=== PATIENT | female | born 1970 | race Caucasian/White ===

== ENCOUNTER 2020-01-30 10:02 | Outpatient (REF) | payer OTHER, SELFPAY ==
[2020-01-30 11:01] LABS: Baso%MD 0.9 %; Eos%MD 4.2 %; Hematocrit 42.5 % (37-47); Hemoglobin 14.2 g/dl (12.0-16.0); IG%MD 0.1 %; Mean Corpuscular HGB Conc 33.4 g/dl (31.0-35.0); Mean Corpuscular Hemoglobin 29.5 pg (27.0-33.0); Mean Corpuscular Volume 88.4 fL (80-98); Mean Platelet Volume 9.1 fL (9.4-12.3); Mono%MD 5.3 %; Neut%MD 58.5 %; Platelet Count 333 X10*3/uL (160-400); Red Blood Count 4.81 X10*6/uL (4.20-5.50); Red Cell Distribution Width 12.4 % (11.0-16.0)
[2020-01-30 11:58] LABS: Anion Gap 14 (12-20); Blood Urea Nitrogen 8 mg/dL (9-16); Calcium 9.1 mg/dL (8.4-10.2); Carbon Dioxide 27 mmol/L (22-29); Chloride 104 mmol/L (96-108); Estimated Glomerular Filt Rate > 60; Glucose Random 103 mg/dL (60-115); Iron 132 mcg/dL (30-160); Percent Iron Saturation 43 % (15-50); Potassium 4.5 mmol/l (3.3-5.1); Sodium 140 mmol/L (135-145); Total Iron Binding Capacity 307 mcg/dL (228-428); Unsaturated Iron Binding 175 ug/dL
[2020-01-30 12:23] LABS: Ferritin 30 ng/mL (10-250); TSH reflex Free T4 0.65 mIU/mL (0.32-4.0)
[2020-01-30 12:24] LABS: Band Neutrophils Percent 1 % (3-5); Eosinophils Absolute Manual 0.1 X10*3/UL (0.0-0.8); Eosinophils Percent Manual 2 % (0-4); Lymphocytes Absolute Manual 2.3 X10*3/uL (0.6-4.8); Lymphocytes Percent Manual 33 % (20-40); Monocytes Absolute Manual 0.4 X10*3/uL (0.0-1.2); Monocytes Percent Manual 6 % (2-11); Neutrophils Absolute Manual 4.1 X10*3/uL (2.2-7.9); Neutrophils Percent Manual 58 % (45-73)
[2020-01-30 12:25] LABS: Platelet Estimate NORMAL (NORMAL); Platelet Morphology Comment NORMAL; RBC Morphology NORMAL
[2020-01-30 12:26] LABS: Vitamin B12 > 2000 pg/mL (200-900)
== END 2020-01-30 10:03 | disposition home or self-care (01) ==
LOC: HO.LAB 10:02
PROVIDERS: PCP Nurse Practitioner Family; Visit Provider Nurse Practitioner Family
DX: R53.83 Other fatigue (principal)
CPT/HCPCS: 36415; 80048; 82607; 82728; 83540; 84443; 85007; 85027

== ENCOUNTER 2020-04-14 09:44 | Outpatient (REF) | payer OTHER, SELFPAY ==
[2020-04-20 02:32] LABS: HPV mRNA E6/E7 rflx Not Detected (Not Detected)
== END 2020-04-14 09:45 | disposition home or self-care (01) ==
LOC: HO.LAB 09:44
PROVIDERS: Visit Provider Obstetrics & Gynecology
DX: Z01.411 Encounter for gynecological examination (general) (routine) with abnormal findings (principal); R10.2 Pelvic and perineal pain; R35.0 Frequency of micturition
CPT/HCPCS: 36415; 81002; 87624; 88142

== ENCOUNTER 2020-04-26 10:54 | Day surgery (SDC) | payer OTHER, SELFPAY ==
[2020-04-20 13:01] VITALS: BMI 34.0
--- NOTE | 2020-04-23 10:29 | HO.ANESPROP2 ---
HPI - Anesthesia Eval Consult details Narrative: 49yo F for Colonoscopy PMFSH Past Medical History Medical History Anxiety Depression High cholesterol History of back pain HTN (hypertension) Hx of iron deficiency anemia Hx of seasonal allergies Migraines Obesity Smoker Family History Family History Father Hx of diabetes insipidus Mother Hx of diabetes insipidus Surgical History Surgical History History of blepharoplasty History of bunionectomy of right great toe History of colposcopy History of foot surgery History of lymph node biopsy History of nasal surgery History of surgical removal of ganglion cyst History of tonsillectomy and adenoidectomy Hx of endoscopy Hx of gastric bypass Hx of tubal ligation Social History Social History Alcohol intake: never Smoking Status: Current every day smoker Tobacco Type: Cigarette Packs Per Day: 0.5 Cigarettes Per Day: 10.0 Years Smoked: 35 Current occupational status: employed Current occupation: [email or web address] Allergies Allergy/AdvReac Type Severity Reaction Status Date / Time mold Allergy Mild SNEEZING Unverified 04/20/20 12:21 prednisone [Prednisone] Allergy Mild NAUSEA & Unverified 04/20/20 12:21 VOMITING losartan Allergy Unknown unknown Verified 04/20/20 12:21 clindamycin [CLINDAMYCIN] AdvReac Severe C.DIFFICILE Unverified 04/20/20 12:21 procaine [From Novocain] AdvReac Severe NOVOCAIN Unverified 04/20/20 12:21 WITH EPI CUSES PALPITATION erythromycin base AdvReac Mild NAUSEA & Unverified 04/20/20 12:21 [Erythromycin Base] VOMITING ? disolving stitches Allergy Unknown skin Uncoded 04/20/20 12:21 burn/ulceration adhesives Allergy Unknown skin Uncoded 04/20/20 12:21 burning, blisters Home Medications Medication Instructions Recorded Confirmed Type simvastatin 20 mg tablet 20 mg PO DAILY 02/19/20 04/20/20 History amitriptyline 1 tab PO DAILY 04/20/20 04/20/20 History calcium mg PO 04/20/20 History citalopram 1 tab PO DAILY 04/20/20 04/20/20 History cranberry 500 mg PO BID 04/20/20 04/20/20 History cyanocobalamin (vitamin B-12) 1,000 mcg PO DAILY 04/20/20 04/20/20 History ibuprofen 800 mg PO Q8H PRN 04/20/20 04/20/20 History lansoprazole 15 mg PO DAILY 04/20/20 04/20/20 History multivitamin 1 tab PO DAILY 04/20/20 04/20/20 History thiamine HCl (vitamin B1) [Vitamin 100 mg PO DAILY 04/20/20 04/20/20 History B-1] Exam Exam Date and Time: April 23, 2020 1029 Height,Weight and Vital Signs: Height 5 ft 3 in Weight 87.09 kg Assessment and Plan Assessment Anesthesia Assessment: Chart Reviewed
--- NOTE | 2020-04-26 11:28 | MHC.SHP ---
Pre-Procedural Eval Section B Chief Complaint: Screening Relevant Social History: Tobacco Use Present Medications: see Short Stay Collaborative assessment Medical History: Significant History (Anxiety Depression High cholesterol History of back pain HTN (hypertension) Hx of iron deficiency anemia Hx of seasonal allergies Migraines Obesity Smoker) History of Previous Operations: Relevant previous surgery/procedure and date(s) (History of blepharoplasty History of bunionectomy of right great toe History of colposcopy History of foot surgery History of lymph node biopsy History of nasal surgery History of surgical removal of ganglion cyst History of tonsillectomy and adenoidectomy Hx of endoscopy Hx of gastric bypass Hx of ) Allergies: Allergies Allergy/AdvReac Type Severity Reaction Status Date / Time mold Allergy Mild SNEEZING Unverified 04/20/20 12:21 prednisone [Prednisone] Allergy Mild NAUSEA & Unverified 04/20/20 12:21 VOMITING losartan Allergy Unknown unknown Verified 04/20/20 12:21 clindamycin [CLINDAMYCIN] AdvReac Severe C.DIFFICILE Unverified 04/20/20 12:21 procaine [From Novocain] AdvReac Severe NOVOCAIN Unverified 04/20/20 12:21 WITH EPI CUSES PALPITATION erythromycin base AdvReac Mild NAUSEA & Unverified 04/20/20 12:21 [Erythromycin Base] VOMITING ? disolving stitches Allergy Unknown skin Uncoded 04/20/20 12:21 burn/ulceration adhesives Allergy Unknown skin Uncoded 04/20/20 12:21 burning, blisters Review of Systems Sugical H&P ROS: Negative: Constitution, Cardiovascular, Respiratory, Neurological, Psychiatric, Hem-Onc, Allergic/Immunologic, Gastrointestinal, Genitourinary, Musculoskeletal, Integumentary, Endocrine and Eyes/Ears/Nose/Throat Exam Surgical H&P Exam: Normal: HEENT, Normal: Heart, Normal: Lungs, Normal: Extremities, Normal: Abdomen, Normal: Skin and Normal: Neurological Plan Diagnosis/Plan: Unchanged I have reviewed the history and physical and performed a pertinent physical examination on my patient. No changes have occurred unless specified.
[2020-04-26 11:29] VITALS: BP 175/109; PULSE 90; RESP 16; TEMP 36; O2SAT 96
--- NOTE | 2020-04-26 11:29 | PM.OP ---
Brief Operative Note Date of Service: 04/26/20 Pre-op diagnosis: colon screen Post-op diagnosis: same Procedure: see op note Surgeon: Trinity Farr MD Anesthesia: MAC Estimated blood loss (mL): 0 Condition: stable Disposition: PACU
--- NOTE | 2020-04-26 11:29 | W.PM.OPN ---
Operative Note Operative Note Date of Service: 04/26/20 Narrative: Operative Information Procedure Description: Colonoscopy COLONOSCOPY Instrument: Olympus variable stiffness pediatric scope 190L Colonoscopy Monitoring: Vital signs and clinical assessment, continuous EKG monitoring, Pulse oximetry, Carbon Dioxide monitoring and blood pressure monitoring were done throughout the procedure. Colon withdrawal time was 12 minutes. Procedure: The patient was placed in the left lateral decubitis position and pre-procedure medications were administered. After a digital rectal examination of the ano-rectum, the video colonoscope was inserted into the rectum and advanced through the colon to the cecum/TI. The colonoscope was slowly withdrawn in a retrograde panoramic fashion and the colon mucosa was carefully examined including a retroflexed view of the rectum. Findings and interventions are described below. Procedure Difficulty:easy Findings: Terminal Ileum-normal Cecum:normal Ascending Colon: 5-7 mm sessile polyp removed with cold snare, otherwise nml Transverse Colon - 8-9 mm sessile polyp removed with cold snare, otherwise nml Descending Colon:normal Sigmoid Colon: mild diverticulosis Rectum: Retroflexion with small internal hemorrhoids, grade I Anorectum - normal Colon preparation: [place] Bowel Preparation Scale Right colon; 2 Transverse colon: 2 Left colon; 2 (0 = Unprepared colon segment with mucosa not seen due to solid stool that cannot be cleared. 1 = Portion of mucosa of the colon segment seen, but other areas of the colon segment not well seen due to staining, residual stool and/or opaque liquid. 2 = Minor amount of residual staining, small fragments of stool and/or opaque liquid, but mucosa of colon segment seen well. 3 = Entire mucosa of colon segment seen well with no residual staining, small fragments of stool or opaque liquid) Impression and Post Procedure Diagnosis: polyps internal hemorrhoids diverticular disease Plan: High fiber diet leaflet Avoid straining at stool, epsom salts and sitz bath, anusol supps or cream Repeat Colonoscopy in 5 years if adenoma, 10 yrs if hyperplastic or earlier if clinically indicated Above findings were reviewed with the patient and relevant handouts were provided if indicated.
--- NOTE | 2020-04-26 11:32 | HO.POSTANES ---
Post Anesthesia Evaluation Post Anesthesia Evaluation Anesthesia: Monitored Mental Status: Awake Pain Control: Satisfactory Nausea/Vomiting: None Hydration: Adequate Anesthesia-Related Issues: No Anes. Related Issues
--- NOTE | 2020-04-26 11:38 | P.CONAN_ITS ---
[facility] Past Medical History Medical History Anxiety Depression High cholesterol History of back pain HTN (hypertension) Hx of iron deficiency anemia Hx of seasonal allergies Migraines Obesity Smoker Family History Family History Father Hx of diabetes insipidus Mother Hx of diabetes insipidus Surgical History Surgical History History of blepharoplasty History of bunionectomy of right great toe History of colposcopy History of foot surgery History of lymph node biopsy History of nasal surgery History of surgical removal of ganglion cyst History of tonsillectomy and adenoidectomy Hx of endoscopy Hx of gastric bypass Hx of tubal ligation Social History Social History Are you a primary child care development specialist to a significant other at home: No Do you presently have visiting nurse or other home services: No Alcohol intake: never Smoking Status: Current every day smoker Tobacco Type: Cigarette Packs Per Day: 0.5 Cigarettes Per Day: 10.0 Years Smoked: 35 Smoked in Last 30 Days: Yes Patient Interested in Nicotine Replacement: No Patient Given Instructions on How to Stop Smoking: Yes Date Education Initiated: 04/20/20 Use of substances other than those prescribed or required for medical reasons: No Have you been hit, kicked, punched, or otherwise hurt by someone within the past year? If so, by whom?: No Advance Directives: No Advance Directives Information Provided: No Advance Directives on File: No Recently lost weight without trying: No Current occupational status: employed Current occupation: [employer] Allergies Allergy/AdvReac Type Severity Reaction Status Date / Time mold Allergy Mild SNEEZING Unverified 04/20/20 12:21 prednisone [Prednisone] Allergy Mild NAUSEA & Unverified 04/20/20 12:21 VOMITING losartan Allergy Unknown unknown Verified 04/20/20 12:21 clindamycin [CLINDAMYCIN] AdvReac Severe C.DIFFICILE Unverified 04/20/20 12:21 procaine [From Novocain] AdvReac Severe NOVOCAIN Unverified 04/20/20 12:21 WITH EPI CUSES PALPITATION erythromycin base AdvReac Mild NAUSEA & Unverified 04/20/20 12:21 [Erythromycin Base] VOMITING ? disolving stitches Allergy Unknown skin Uncoded 04/20/20 12:21 burn/ulceration adhesives Allergy Unknown skin Uncoded 04/20/20 12:21 burning, blisters Home Medications Medication Instructions Recorded Confirmed Type simvastatin 20 mg tablet 20 mg PO DAILY 02/19/20 04/20/20 History amitriptyline 1 tab PO DAILY 04/20/20 04/20/20 History calcium mg PO 04/20/20 History citalopram 1 tab PO DAILY 04/20/20 04/20/20 History cranberry 500 mg PO BID 04/20/20 04/20/20 History cyanocobalamin (vitamin B-12) 1,000 mcg PO DAILY 04/20/20 04/20/20 History ibuprofen 800 mg PO Q8H PRN 04/20/20 04/20/20 History lansoprazole 15 mg PO DAILY 04/20/20 04/20/20 History multivitamin 1 tab PO DAILY 04/20/20 04/20/20 History thiamine HCl (vitamin B1) [Vitamin 100 mg PO DAILY 04/20/20 04/20/20 History B-1] Exam Exam Date and Time: April 26, 2020 1138 Height,Weight and Vital Signs: Height 5 ft 3 in Weight 87.09 kg Last Vital Signs Temp 96.8 F 04/26/20 11:29 Pulse 90 04/26/20 11:29 Resp 16 04/26/20 11:29 BP 175/109 H 04/26/20 11:29 Pulse Ox 96 04/26/20 11:29 Airway Mallampati Class: II TM Dist: >3cm Neck ROM: Full Heart: RRR Lungs: CTA
[2020-04-26] MEDS: Lactated Ringers 1,000 ML 100 ML IVCONT (11:43)
[2020-04-26 12:35] VITALS: BP 173/100; PULSE 77; RESP 15; TEMP 36.2; O2SAT 99
[2020-04-26 12:50] VITALS: BP 176/101; PULSE 69; RESP 17; O2SAT 100
[2020-04-26] MEDS: SUMAtriptan succinate 50 MG TABLET PO (12:58)
[2020-04-26 13:45] VITALS: BP 185/97; PULSE 60; RESP 17; O2SAT 99
== END 2020-04-26 14:08 | disposition home or self-care (01) ==
PROVIDERS: Visit Provider Internal Medicine Gastroenterology
PROC: 0DJD8ZZ Inspection of Lower Intestinal Tract, Via Natural or Artificial Opening Endoscopic (ICD-10-PCS; CPT 45378; principal; 2020-04-26 12:30)
DX: Z12.11 Encounter for screening for malignant neoplasm of colon (principal); K63.5 Polyp of colon; K57.30 Diverticulosis of large intestine without perforation or abscess without bleeding; K64.0 First degree hemorrhoids; I10 Essential (primary) hypertension; F32.9 Major depressive disorder, single episode, unspecified; E66.9 Obesity, unspecified; Z98.84 Bariatric surgery status; Z79.899 Other long term (current) drug therapy; Z88.8 Allergy status to other drugs, medicaments and biological substances; Z88.1 Allergy status to other antibiotic agents; Z91.040 Latex allergy status; F17.210 Nicotine dependence, cigarettes, uncomplicated
CPT/HCPCS: 45385; 88305

== ENCOUNTER 2020-04-28 13:50 | Outpatient (REF) | payer OTHER, SELFPAY ==
--- NOTE | 2020-04-28 13:55 | US_ITS ---
EXAMINATION: PELVIC ULTRASOUND CLINICAL INFORMATION: Pelvic pain COMPARISON: Previous pelvic ultrasound most recent April [address] of the pelvis December 2012 TECHNIQUE: Transabdominal and transvaginal pelvic ultrasound was performed. Transvaginal exam was performed for better visualization of the uterus and ovaries. FINDINGS: The uterus is anteverted and measures 8.6 x 4.2 x 4.8 cm in dimension. There is a hypoechoic lesion in the left anterior uterine body measuring 1.8 x 1.4 x 2 cm suggestive of a fibroid. This measured 1.6 x 1.3 x 2.3 cm prior exam and is slightly increased in size. No other focal uterine lesion is seen. Endometrial thickness is normal estimated at 0.8 cm. The right ovary measures 2.7 x 1.7 x 2 cm. There is a 2.1 x 1.5 x 1.4 cm complex cyst with peripheral echogenic foci questionable for wall calcification. This is new from previous exam. Left ovary is enlarged and measures 2.7 x 3.4 x 2.7 cm. There is a 2.1 2.2 x 2.4 cm complex left ovarian cyst with internal echoes and small echogenic foci, largest measuring 3 mm. There is no fluid in the pelvis. There is a 2.4 x 2.1 3.2 cm cyst seen in or just posterior to the wall of the bladder. This changes shape and decreases in size on post void images may represent a bladder diverticulum. US/US pelvic complete IMPRESSION: Small left anterior uterine body fibroid slightly increased in size from previous exam. New bilateral complex ovarian cysts. Short-term ultrasound follow-up in 10-12 weeks is recommended. Question small posterior bladder diverticulum.
== END 2020-04-28 13:51 | disposition home or self-care (01) ==
LOC: HO.HMGCX 13:50
PROVIDERS: Visit Provider Obstetrics & Gynecology
DX: R10.2 Pelvic and perineal pain (principal)
CPT/HCPCS: 76830; 76856

== ENCOUNTER → 2020-05-03 10:04 | Outpatient (BNVA) | payer OTHER, SELFPAY | PROVIDERS: PCP Nurse Practitioner Family; Referring Provider Nurse Practitioner Family; Visit Provider Physician Assistant ==

== ENCOUNTER 2020-05-11 12:11 | Outpatient (REF) | payer OTHER, SELFPAY ==
[2020-05-12 10:22] LABS: CA-125 7 U/mL (<35)
== END 2020-05-11 12:12 | disposition home or self-care (01) ==
LOC: HO.LAB 12:11
PROVIDERS: PCP Nurse Practitioner Family; Visit Provider Obstetrics & Gynecology
DX: N83.292 Other ovarian cyst, left side (principal); N83.291 Other ovarian cyst, right side; D21.9 Benign neoplasm of connective and other soft tissue, unspecified; R93.41 Abnormal radiologic findings on diagnostic imaging of renal pelvis, ureter, or bladder
CPT/HCPCS: 36415; 86304

== ENCOUNTER 2020-05-13 06:50 | Outpatient (REF) | payer OTHER, SELFPAY ==
[2020-05-13 07:43] LABS: MANUAL DIFF FLAG NO
[2020-05-13 07:46] LABS: Basophils Absolute Auto 0.1 X10*3/uL (0.0-0.2); Basophils Percent Auto 0.9 % (0-2); Eosinophils Absolute Auto 0.3 X10*3/uL (0.0-0.4); Eosinophils Percent Auto 3.8 % (0-4); Hematocrit 42.4 % (37-47); Hemoglobin 14.3 g/dl (12.0-16.0); Imm Gran Abs Auto 0.02 X10*3/uL (0.00-0.03); Imm Gran Pct Auto 0.3 % (0.0-0.4); Lymphocytes Absolute Auto 1.8 X10*3/uL (1.2-4.9); Lymphocytes Percent Auto 26.5 % (20-40); Mean Corpuscular HGB Conc 33.7 g/dl (31.0-35.0); Mean Corpuscular Hemoglobin 29.7 pg (27.0-33.0); Mean Platelet Volume 9.4 fL (9.4-12.3); Monocytes Absolute Auto 0.5 X10*3/uL (0.1-1.2); Monocytes Percent Auto 7.1 % (2-11); Neutrophils Absolute Auto 4.3 X10*3/uL (2.0-8.3); Neutrophils Percent Auto 61.4 % (45-73); Platelet Count 333 X10*3/uL (160-400); Red Blood Count 4.82 X10*6/uL (4.20-5.50); Red Cell Distribution Width 12.6 % (11.0-16.0); White Blood Count 6.9 X10*3/uL (4.8-10.8)
[2020-05-13 08:13] LABS: Alanine Aminotransferase 17 U/L (0-31); Albumin Level 4.4 g/dL (3.5-5.0); Alkaline Phosphatase 61 U/L (39-117); Anion Gap 14 (12-20); Aspartate Amino Transferase 20 U/L (5-31); Bilirubin Total 0.5 mg/dL (0.0-1.0); Blood Urea Nitrogen 13 mg/dL (9-16); Calcium 8.8 mg/dL (8.4-10.2); Carbon Dioxide 26 mmol/L (22-29); Chloride 104 mmol/L (96-108); Cholesterol 185 mg/dL; Estimated Glomerular Filt Rate > 60; Glucose Fasting 86 mg/dL (60-99); HDL Cholesterol 55 mg/dL; LDL Cholesterol Calculated 115 mg/dl; Potassium 4.1 mmol/L (3.3-5.1); Sodium 140 mmol/L (135-145); Total Protein 6.8 g/dL (6.5-8.0); Triglycerides 75 mg/dL
[2020-05-13 08:34] LABS: TSH reflex Free T4 1.01 uIU/mL (0.32-4.0)
== END 2020-05-13 06:51 | disposition home or self-care (01) ==
LOC: HO.LAB 06:50
PROVIDERS: Visit Provider Nurse Practitioner Family
DX: Z00.00 Encounter for general adult medical examination without abnormal findings (principal)
CPT/HCPCS: 36415; 80053; 80061; 84443; 85025

== ENCOUNTER 2020-05-20 14:10 | Outpatient (REF) | payer OTHER, SELFPAY ==
--- NOTE | ~2020-05-20 | MM_ITS ---
EXAMINATION: MM SCREENING DIGITAL BREAST TOMOSYNTHESIS, BILATERAL CLINICAL INFORMATION: Screening. Asymptomatic. The lifetime risk of breast cancer based on the Tyrer-Cuzick Model is 14%. COMPARISON: Mammography: 02/28/2019, 02/12/2018, 07/19/2017, 02/02/2017 TECHNIQUE: Digital breast tomosynthesis is performed in both the craniocaudal and mediolateral oblique views along with computer-aided detection (CAD). Synthesized 2D images are generated from the tomosynthesis. FINDINGS: The breasts are almost entirely fatty (ACR BI-RADS breast composition Category a). There are no significant masses, abnormal calcifications, or other abnormalities. The axilla and skin contours are unremarkable. MM/MM tomosynthesis screening BI IMPRESSION: No mammographic evidence of malignancy. ASSESSMENT: BI-RADS 1: Negative RECOMMENDATION: Routine annual mammography screening. This patient's information was entered into a reminder system with a target due date for their next mammogram.
== END 2020-05-20 14:11 | disposition home or self-care (01) ==
LOC: HO.MAMMO 14:10
PROVIDERS: PCP Obstetrics & Gynecology; Visit Provider Obstetrics & Gynecology
DX: Z12.31 Encounter for screening mammogram for malignant neoplasm of breast (principal)
CPT/HCPCS: 77063; 77067

== ENCOUNTER → 2020-07-02 09:52 | Outpatient (BNVA) | payer OTHER, SELFPAY | PROVIDERS: PCP Nurse Practitioner Family; Visit Provider Urology ==

== ENCOUNTER 2020-07-12 11:46 | Outpatient (REF) | payer OTHER, SELFPAY ==
--- NOTE | ~2020-07-12 | XR_ITS ---
EXAMINATION: XR TOES, RIGHT CLINICAL INFORMATION: Right toe pain. COMPARISON: None. TECHNIQUE: 3 views of the right toes were obtained. FINDINGS: No displaced fracture. No dislocation. Flattening of the 4th and 5th proximal phalangeal heads, which may represent remote postsurgical change. Joint space narrowing with marginal osteophytes at the 1st metatarsophalangeal and 1st interphalangeal joints. Status post osteotomy at the distal 1st metatarsal. Lateral subluxation of the hallux sesamoids with degenerative arthritis. XR/XR toe RT min 2V IMPRESSION: No acute fracture or dislocation. Possible postsurgical change at the 4th and 5th proximal phalangeal heads. Postsurgical change at the 1st metatarsal. Lateral subluxation of the hallux sesamoids. 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
== END 2020-07-12 11:47 | disposition home or self-care (01) ==
LOC: HO.XRAY 11:46
PROVIDERS: Visit Provider Nurse Practitioner Family
DX: M79.674 Pain in right toe(s) (principal)
CPT/HCPCS: 73660

== ENCOUNTER → 2020-07-23 13:57 | Outpatient (BNVA) | payer OTHER, SELFPAY | PROVIDERS: PCP Nurse Practitioner Family; Visit Provider Urology | DX: N94.89 Other specified conditions associated with female genital organs and menstrual cycle (principal); R33.9 Retention of urine, unspecified | CPT/HCPCS: 52000; 81002 ==

== ENCOUNTER 2020-08-09 15:26 | Outpatient (REF) | payer OTHER, SELFPAY ==
--- NOTE | ~2020-08-09 | US_ITS ---
EXAMINATION: ULTRASOUND PELVIS COMPLETE CLINICAL INFORMATION: Follow up ovarian cyst. COMPARISON: Ultrasound pelvis 04/28/2020. TECHNIQUE: Transabdominal and transvaginal imaging of pelvis is performed. FINDINGS: The uterus is anteverted measuring 6.7 cm in length, 3.4 cm in AP and 4.5 cm in transverse dimension. The endometrial thickness is 0.30 cm. There is a hypoechoic lesion in the anterior body/fundus junction measuring 1.3 x 1.3 x 2.2 cm. Previously it measured 1.8 x 1.4 x 2.0 cm. No additional lesion seen. The right ovary measures 3.16 x 2.10 x 2.31 cm and volume 8.01 mL. There is a hypoechoic area seen within measuring 0.33 x 0.23 x 0.24 cm likely residual complex cyst. Previously same lesion measured approximately 2.1 x 1.5 x 1.4 cm. There is a small anechoic area seen in the right adnexa with calcifications Left ovary measures 3.15 x 2.35 x 2.06 cm and volume 8.0 mL. There is a complex anechoic complex cyst measuring 2.2 x 2.1 x 2.1 cm with hypoechoic scattered areas likely calcification. Previously it measured 2.1 x 2.2 x 2.4 cm. There is no free fluid in cul-de-sac. There is an anechoic irregular-shaped midline collection posterior to bladder with echogenic internal echoes. Question bladder diverticulum. US/US transvaginal IMPRESSION: Bilateral complex ovarian cyst, stable. Suspect posterior bladder diverticulum. Solitary uterine fibroid, stable.
--- NOTE | ~2020-08-09 | US_ITS ---
EXAMINATION: ULTRASOUND PELVIS COMPLETE CLINICAL INFORMATION: Follow up ovarian cyst. COMPARISON: Ultrasound pelvis 04/28/2020. TECHNIQUE: Transabdominal and transvaginal imaging of pelvis is performed. FINDINGS: The uterus is anteverted measuring 6.7 cm in length, 3.4 cm in AP and 4.5 cm in transverse dimension. The endometrial thickness is 0.30 cm. There is a hypoechoic lesion in the anterior body/fundus junction measuring 1.3 x 1.3 x 2.2 cm. Previously it measured 1.8 x 1.4 x 2.0 cm. No additional lesion seen. The right ovary measures 3.16 x 2.10 x 2.31 cm and volume 8.01 mL. There is a hypoechoic area seen within measuring 0.33 x 0.23 x 0.24 cm likely residual complex cyst. Previously same lesion measured approximately 2.1 x 1.5 x 1.4 cm. There is a small anechoic area seen in the right adnexa with calcifications Left ovary measures 3.15 x 2.35 x 2.06 cm and volume 8.0 mL. There is a complex anechoic complex cyst measuring 2.2 x 2.1 x 2.1 cm with hypoechoic scattered areas likely calcification. Previously it measured 2.1 x 2.2 x 2.4 cm. There is no free fluid in cul-de-sac. There is an anechoic irregular-shaped midline collection posterior to bladder with echogenic internal echoes. Question bladder diverticulum. US/US pelvic complete IMPRESSION: Bilateral complex ovarian cyst, stable. Suspect posterior bladder diverticulum. Solitary uterine fibroid, stable.
== END 2020-08-09 15:27 | disposition home or self-care (01) ==
LOC: HO.HMGCX 15:26
PROVIDERS: Visit Provider Obstetrics & Gynecology
DX: N83.291 Other ovarian cyst, right side (principal); N83.292 Other ovarian cyst, left side
CPT/HCPCS: 76830; 76856

== ENCOUNTER 2020-08-23 11:56 | Outpatient (REF) | payer OTHER, SELFPAY ==
[2020-08-24 17:17] LABS: CA-125 5 U/mL (<35)
== END 2020-08-23 11:57 | disposition home or self-care (01) ==
LOC: HO.LAB 11:56
PROVIDERS: PCP Nurse Practitioner Family; Visit Provider Obstetrics & Gynecology
DX: N83.291 Other ovarian cyst, right side (principal); N83.292 Other ovarian cyst, left side
CPT/HCPCS: 36415; 86304

== ENCOUNTER 2020-08-24 07:00 | Outpatient (RCR) | payer OTHER, SELFPAY ==
--- NOTE | 2020-08-06 10:14 | MHC.PT.EP ---
[facility] [place] Office [place] Office [place] Office [address] Shayy Mccoy [address] [phone] F: [phone] F: [phone] F: [phone] F: [phone] Physical Therapy Plan of Care Date of Evaluation: Date of Surgery: Diagnosis: bladder retention Assessment: The patient's lumbar and hip ROM was WNL. Pt gave consent for an internal exam. Internal pelvic exam revealed high resting tone more pronounced on the right side. Overall her pelvic floor strength was a 2/5 demonstrating poor contraction from the anterior wall, and sides which is likely due to high resting tone limits good muscle excursion. The obturator internus had increased muscle bulk on the right side as well compared to the left. The compressor uretrhra was more band like and more taut compared to left side. She had poor breathing mechanics and tends to be a chest breather as noted with observation. Pt had tightness in her right piriformis muscle as well. Pt reportedly drinks 8-10 cups of coffee/day, and she has significant mixed incontinence consisting of stress and urge incontinence. I will review bladder irritants, behavior training, manual therapy for internal pelvic floor muscle release, hip stretches will be introduced for the PFM and the hip rotators. The patient is an excellent candidate for skilled Pelvic floor therapy. Frequency and Duration: The patient will be seen 2x/week x 12 weeks Short Term Goals: 1. Pt to be able to voluntarily relax her pelvic floor and to have improved symmetry in resting tone between left and right side. 2. Pt to be able to demonstrate diaphragmatic breathing to improve pressure exchange and intra abdominal load management. 3. Pt to be educated on bladder irritants in order to decrease UI triggers 4. Pt to complete a voiding log in order to accurately assess her bladder habits 5. Pt to be educated on behavior training to help decrease urge incontinence. Patternator Goals: 1. Pt to have normal resting tone of her pelvic floor musculature. 2. Pt to reduce # of episodes of UI during the day by 75% to help improve quality of life and reduce pad usage. 3. Pt to be independent with her final HEP for PFM in order to help maintain gains made in therapy. Treatment Plan: Modalities to reduce pain, spasms and effusion. Manual therapy to restore motion and function. Therapeutic exercise to improve strength and flexibility. Neuromuscular re-education for posture and balance. Therapeutic activities to return to functional activities of daily living. Electronically signed by: Dorina Jiménez PT DPT Please sign and return to therapist. Thank you for your referral.
== END 2020-08-27 08:00 | disposition home or self-care (01) ==
LOC: HO.PT 07:00
PROVIDERS: Visit Provider Urology
DX: R39.89 Other symptoms and signs involving the genitourinary system (principal); R33.9 Retention of urine, unspecified
CPT/HCPCS: 97110; 97112; 97140; 97162

== ENCOUNTER 2020-10-19 06:55 | Outpatient (REF) | payer OTHER, SELFPAY ==
[2020-10-19 07:30] LABS: MANUAL DIFF FLAG NO
[2020-10-19 07:32] LABS: Basophils Absolute Auto 0.1 X10*3/uL (0.0-0.2); Eosinophils Absolute Auto 0.3 X10*3/uL (0.0-0.4); Eosinophils Percent Auto 4.4 % (0-4); Hemoglobin 13.6 g/dl (12.0-16.0); Imm Gran Abs Auto 0.01 X10*3/uL (0.00-0.03); Imm Gran Pct Auto 0.1 % (0.0-0.4); Immature Retic Fraction 8.9 % (3.0-15.9); Lymphocytes Absolute Auto 2.2 X10*3/uL (1.2-4.9); Lymphocytes Percent Auto 30.7 % (20-40); Mean Corpuscular HGB Conc 33.2 g/dl (31.0-35.0); Mean Corpuscular Hemoglobin 29.4 pg (27.0-33.0); Mean Corpuscular Volume 88.6 fL (80-98); Mean Platelet Volume 9.6 fL (9.4-12.3); Monocytes Absolute Auto 0.5 X10*3/uL (0.1-1.2); Monocytes Percent Auto 7.2 % (2-11); Neutrophils Percent Auto 56.6 % (45-73); Platelet Count 317 X10*3/uL (160-400); Red Blood Count 4.63 X10*6/uL (4.20-5.50); Red Cell Distribution Width 12.7 % (11.0-16.0); Retic HGB Equivalent 32.8 pg (30.0-35.0); Reticulocyte Percent 1.6 % (0.5-1.8); Reticulocytes Absolute 0.072 X10*6/uL (0.026-0.095); White Blood Count 7.1 X10*3/uL (4.8-10.8)
[2020-10-19 08:01] LABS: Alanine Aminotransferase 11 U/L (0-31); Albumin Level 4.3 g/dL (3.5-5.0); Alkaline Phosphatase 60 U/L (39-117); Anion Gap 12 (12-20); Aspartate Amino Transferase 17 U/L (5-31); Bilirubin Total 0.6 mg/dL (0.0-1.0); Blood Urea Nitrogen 12 mg/dL (9-16); Calcium 9.3 mg/dL (8.4-10.2); Carbon Dioxide 26 mmol/L (22-29); Chloride 107 mmol/L (96-108); Cholesterol 159 mg/dL; Estimated Glomerular Filt Rate > 60; Glucose Fasting 90 mg/dL (60-99); HDL Cholesterol 50 mg/dL; Iron 95 mcg/dL (30-160); LDL Cholesterol Calculated 89 mg/dl; Percent Iron Saturation 27 % (15-50); Potassium 4.2 mmol/L (3.3-5.1); Sodium 141 mmol/L (135-145); Total Iron Binding Capacity 353 mcg/dL (228-428); Total Protein 6.6 g/dL (6.5-8.0); Triglycerides 100 mg/dL; Unsaturated Iron Binding 258 ug/dL
[2020-10-19 08:21] LABS: TSH reflex Free T4 0.86 uIU/mL (0.32-4.0); Vitamin D 25-OH Total 43.5 ng/mL (>30)
[2020-10-19 08:38] LABS: Folate > 20.0 ng/mL (> or = 4.0); Vitamin B12 > 2000 pg/mL (200-900)
[2020-10-21 05:31] LABS: Lyme Abs Screen <0.90 index
== END 2020-10-19 06:56 | disposition home or self-care (01) ==
LOC: HO.LAB 06:55
PROVIDERS: PCP Nurse Practitioner Family; Visit Provider Nurse Practitioner Family
DX: Z00.00 Encounter for general adult medical examination without abnormal findings (principal); R53.83 Other fatigue
CPT/HCPCS: 36415; 80053; 80061; 82306; 82607; 82746; 83540; 84443; 85025; 85045; 86617; 86618

== ENCOUNTER 2020-11-08 15:28 | Outpatient (REF) | payer OTHER, SELFPAY ==
--- NOTE | ~2020-11-08 | US_ITS ---
EXAMINATION: US PELVIC AND TRANSVAGINAL CLINICAL INFORMATION: Ovarian cyst. COMPARISON: None TECHNIQUE: Transabdominal and transvaginal imaging of the pelvis is performed. FINDINGS: The uterus is anteverted measuring 6.68 cm in length, 3.5 cm AP and 3.6 cm in transverse dimension. There is a solitary hypoechoic lesion in the anterior fundal uterus measuring 1.3 x 1.3 x 1.5 cm. Previously it measured 1.3 x 1.3 x 2.2 cm. The endometrial thickness is 0.36 cm. The right ovary measures 3.0 x 1.9 x 2.2 cm and volume 6.4 mL. Previously it measured 3.2 x 2.1 x 2.3 cm. There is a hyperechoic area in the right ovary measuring 0.22 x 0.20 x 0.28 cm. The left ovary measures 2.91 x 2.01 x 3.27 cm and volume 10.0 mL. There is a complex anechoic cyst measuring 2.0 x 1.9 x 2.0 cm and a hyperechoic area within measuring 0.43 x 0.25 x 0.28 cm. Imaging through the pelvis reveals 2 diverticula within the bladder. The larger one measuring 3.3 x 1.5 x 2.1 cm and a second lesion measuring 2.4 x 2.7 x 2.0 cm with echogenic areas within the wall. There is no free fluid in the cul-de-sac. US/US pelvic and transvaginal IMPRESSION: Complex cyst left ovary. There are solitary hyperechoic areas in the right and left ovary. Solitary uterine fibroid is stable compared to 08/09/2020. There is no free fluid in the cul-de-sac.
== END 2020-11-08 15:29 | disposition home or self-care (01) ==
LOC: HO.HMGCX 15:28
PROVIDERS: PCP Nurse Practitioner Family; Visit Provider Obstetrics & Gynecology
DX: N83.299 Other ovarian cyst, unspecified side (principal)
CPT/HCPCS: 76830; 76856

== ENCOUNTER → 2020-11-15 12:08 | Outpatient (BNVA) | payer OTHER, SELFPAY | PROVIDERS: PCP Nurse Practitioner Family; Visit Provider Obstetrics & Gynecology ==

== ENCOUNTER 2020-12-21 09:23 | Outpatient (REF) | payer OTHER, SELFPAY ==
[2020-12-22 18:22] LABS: CA-125 6 U/mL (<35)
== END 2020-12-21 09:24 | disposition home or self-care (01) ==
LOC: HO.LAB 09:23
PROVIDERS: PCP Nurse Practitioner Family; Visit Provider Obstetrics & Gynecology Gynecologic Oncology
DX: N94.89 Other specified conditions associated with female genital organs and menstrual cycle (principal)
CPT/HCPCS: 36415; 82378; 86304

== ENCOUNTER 2021-01-21 11:03 | Outpatient (RCR) | payer OTHER, SELFPAY ==
--- NOTE | 2021-01-21 13:12 | MHC.PT.EP ---
[facility] [place] Office [place] Office [place] Office [address] Shayy Mccoy [address] [place] [address] [phone] F: [phone] F: [phone] F: [phone] F: [phone] Physical Therapy Plan of Care Date of Evaluation: Date of Surgery: upcoming Feb 01 2021 Diagnosis: Assessment: The patient reports increased urge. Assessment of her pelvic floor muscles reveals poor muscular endurance. but good coordination and motor recruitment. Pt loses power of contraction very quickly ( within 5 seconds) Internally her pelvic floor had increased texture on the anterior vaginal wall with almost a fibrous or gritty texture around the distal urethra. Pt had palpable contraction of the compressor urethra. Increased muscle bulk noted in ishicavernosus in the 1st layer, as well as in the levator ani in the 3rd layer. The patient was recommended to work on submax PFM contractions for 10-20 seconds to build muscular endurance. Pt will have surgery to remove her ovaries on 02/01/21 and she will obtain a new order for pelvic floor PT following this procedure. I did some abdominal massage deep to the visceral level and did visceral mobilizations in the suprapubic region. I may revisit this when she returns to PT. PT given a printed HEP and demonstrated knowledge at this time. Pt d/c today with HEP due to upcoming surgery. Frequency and Duration: The patient will be seen discharged today Short Term Goals: 1. Pt to demonstrate initial HEP. goal met Halfway Goals: Treatment Plan: Modalities to reduce pain, spasms and effusion. Manual therapy to restore motion and function. Therapeutic exercise to improve strength and flexibility. Neuromuscular re-education for posture and balance. Therapeutic activities to return to functional activities of daily living. Electronically signed by: Dorina Jiménez PT DPT Please sign and return to therapist. Thank you for your referral.
== END 2021-04-11 08:35 | disposition home or self-care (01) ==
LOC: HO.PT 11:03
PROVIDERS: Visit Provider Urology
DX: N94.89 Other specified conditions associated with female genital organs and menstrual cycle (principal)
CPT/HCPCS: 97110; 97112; 97140; 97162

== ENCOUNTER 2021-03-17 15:41 | Outpatient (REF) | payer OTHER, SELFPAY ==
[2021-03-19 05:01] LABS: Varicella IgG Antibody <135.00 index
== END 2021-03-17 15:42 | disposition home or self-care (01) ==
LOC: HO.LAB 15:41
PROVIDERS: PCP Nurse Practitioner Family; Visit Provider Nurse Practitioner Family
DX: Z28.3 Underimmunization status (principal)
CPT/HCPCS: 36415; 86787

== ENCOUNTER 2021-05-13 07:29 | Outpatient (REF) | payer OTHER, SELFPAY ==
[2021-05-13 07:43] LABS: MANUAL DIFF FLAG NO
[2021-05-13 08:21] LABS: Basophils Absolute Auto 0.1 X10*3/uL (0.0-0.2); Basophils Percent Auto 0.9 % (0-2); Eosinophils Absolute Auto 0.3 X10*3/uL (0.0-0.4); Eosinophils Percent Auto 4.6 % (0-4); Hematocrit 42.5 % (37.0-47.0); Hemoglobin 14.1 g/dl (12.0-16.0); Imm Gran Abs Auto 0.02 X10*3/uL (0.00-0.03); Imm Gran Pct Auto 0.3 % (0.0-0.4); Lymphocytes Absolute Auto 1.8 X10*3/uL (1.2-4.9); Lymphocytes Percent Auto 27.2 % (20-40); Mean Corpuscular HGB Conc 33.2 g/dl (31.0-35.0); Mean Corpuscular Hemoglobin 29.1 pg (27.0-33.0); Mean Corpuscular Volume 87.6 fL (80.0-98.0); Mean Platelet Volume 9.3 fL (9.4-12.3); Monocytes Absolute Auto 0.5 X10*3/uL (0.1-1.2); Monocytes Percent Auto 6.9 % (2-11); Neutrophils Percent Auto 60.1 % (45-73); Platelet Count 351 X10*3/uL (160-400); Red Blood Count 4.85 X10*6/uL (4.20-5.50); Red Cell Distribution Width 12.8 % (11.0-16.0); White Blood Count 6.7 X10*3/uL (4.8-10.8)
[2021-05-13 08:44] LABS: Alanine Aminotransferase 14 U/L (0-31); Albumin Level 4.4 g/dL (3.5-5.0); Alkaline Phosphatase 69 U/L (39-117); Anion Gap 12 (12-20); Aspartate Amino Transferase 18 U/L (5-31); Bilirubin Total 0.5 mg/dL (0.0-1.0); Blood Urea Nitrogen 10 mg/dL (9-16); Calcium 9.6 mg/dL (8.4-10.2); Carbon Dioxide 27 mmol/L (22-29); Chloride 107 mmol/L (96-108); Cholesterol 184 mg/dL; Estimated Glomerular Filt Rate > 60; Glucose Fasting 84 mg/dL (60-99); HDL Cholesterol 52 mg/dL; Iron 93 mcg/dL (30-160); LDL Cholesterol Calculated 113 mg/dl; Percent Iron Saturation 25 % (15-50); Potassium 4.3 mmol/L (3.3-5.1); Sodium 142 mmol/L (135-145); Total Iron Binding Capacity 365 mcg/dL (228-428); Total Protein 6.9 g/dL (6.5-8.0); Triglycerides 98 mg/dL; Unsaturated Iron Binding 272 ug/dL
[2021-05-13 09:05] LABS: Ferritin 11 ng/mL (10-250)
[2021-05-13 09:27] LABS: Folate > 20.0 ng/mL (> or = 4.0); Vitamin B12 1531 pg/mL (200-900)
[2021-05-13 11:22] LABS: Appearance Urine CLEAR; Color Urine YELLOW; Glucose Urine UA NEG (NEG); Leukocyte Esterase Urine NEG (NEG); Nitrite Urine NEG (NEG); PH 6.5 (5.0-8.0); Urine Blood NEG (NEG); Urine Ketones NEG (NEG); Urine Protein NEG (NEG-TRACE)
== END 2021-05-13 07:30 | disposition home or self-care (01) ==
LOC: HO.LAB 07:29
PROVIDERS: PCP Nurse Practitioner Family; Visit Provider Nurse Practitioner Family
DX: R53.83 Other fatigue (principal)
CPT/HCPCS: 36415; 80053; 80061; 81003; 82607; 82728; 82746; 83540; 84443; 85025

== ENCOUNTER → 2021-06-06 15:07 | Outpatient (BNVA) | payer OTHER, SELFPAY | PROVIDERS: PCP Nurse Practitioner Family; Referring Provider Nurse Practitioner Family; Visit Provider Surgery ==

== ENCOUNTER → 2021-06-07 08:06 | Outpatient (BNVA) | payer OTHER, SELFPAY | PROVIDERS: Visit Provider Obstetrics & Gynecology ==

== ENCOUNTER 2021-06-13 07:46 | Outpatient (REF) | payer OTHER, SELFPAY ==
[2021-06-13 08:12] LABS: MANUAL DIFF FLAG NO
[2021-06-13 08:32] LABS: Basophils Absolute Auto 0.1 X10*3/uL (0.0-0.2); Basophils Percent Auto 0.9 % (0-2); Eosinophils Absolute Auto 0.3 X10*3/uL (0.0-0.4); Eosinophils Percent Auto 4.3 % (0-4); Hematocrit 40.9 % (37.0-47.0); Hemoglobin 13.3 g/dl (12.0-16.0); Imm Gran Abs Auto 0.03 X10*3/uL (0.00-0.03); Imm Gran Pct Auto 0.4 % (0.0-0.4); Lymphocytes Absolute Auto 1.6 X10*3/uL (1.2-4.9); Lymphocytes Percent Auto 22.3 % (20-40); Mean Corpuscular HGB Conc 32.5 g/dl (31.0-35.0); Mean Corpuscular Hemoglobin 28.5 pg (27.0-33.0); Mean Corpuscular Volume 87.8 fL (80.0-98.0); Monocytes Absolute Auto 0.5 X10*3/uL (0.1-1.2); Monocytes Percent Auto 6.6 % (2-11); NRBC Pct Auto 0.3 /100WBC (0.0-0.2); Neutrophils Absolute Auto 4.6 x10*3/uL (2.0-8.3); Neutrophils Percent Auto 65.5 % (45-73); Platelet Count 324 X10*3/uL (160-400); Red Blood Count 4.66 X10*6/uL (4.20-5.50); Red Cell Distribution Width 13.2 % (11.0-16.0)
[2021-06-13 09:02] LABS: Alanine Aminotransferase 12 U/L (0-31); Albumin Level 4.1 g/dL (3.5-5.0); Alkaline Phosphatase 58 U/L (39-117); Anion Gap 13 (12-20); Aspartate Amino Transferase 19 U/L (5-31); Bilirubin Total 0.6 mg/dL (0.0-1.0); Blood Urea Nitrogen 13 mg/dL (9-16); Calcium 9.6 mg/dL (8.4-10.2); Carbon Dioxide 25 mmol/L (22-29); Chloride 105 mmol/L (96-108); Estimated Glomerular Filt Rate > 60; Glucose Random 85 mg/dL (60-115); Iron 110 mcg/dL (30-160); Percent Iron Saturation 32 % (15-50); Potassium 4.4 mmol/L (3.3-5.1); Sodium 139 mmol/L (135-145); Total Iron Binding Capacity 348 mcg/dL (228-428); Total Protein 6.5 g/dL (6.5-8.0); Unsaturated Iron Binding 238 ug/dL
[2021-06-13 09:23] LABS: Ferritin 15 ng/mL (10-250)
[2021-06-15 13:41] LABS: Transferrin 258 mg/dL (188-341)
== END 2021-06-13 07:47 | disposition home or self-care (01) ==
LOC: HO.LAB 07:46
PROVIDERS: PCP Nurse Practitioner Family; Visit Provider Nurse Practitioner Family
DX: E61.1 Iron deficiency (principal); I10 Essential (primary) hypertension; R53.83 Other fatigue
CPT/HCPCS: 36415; 80053; 82728; 83540; 84466; 85025; 86787

== ENCOUNTER 2021-06-15 08:46 | Outpatient (REF) | payer OTHER, SELFPAY ==
--- NOTE | ~2021-06-15 | MM_ITS ---
EXAMINATION: MM SCREENING DIGITAL BREAST TOMOSYNTHESIS, BILATERAL CLINICAL INFORMATION: Screening. Asymptomatic. The lifetime risk of breast cancer based on the Tyrer-Cuzick Model is 14%. COMPARISON: Mammography: 05/20/2020, 02/28/2019, 02/12/2018 TECHNIQUE: Digital breast tomosynthesis is performed in both the craniocaudal and mediolateral oblique views along with computer-aided detection (CAD). Synthesized 2D images are generated from the tomosynthesis. FINDINGS: The breasts are almost entirely fatty (ACR BI-RADS breast composition Category a). There are no significant masses, abnormal calcifications, or other abnormalities. Background stromal and fibroglandular densities are stable. Parenchymal pattern is similar to prior studies. There are no significant changes. MM/MM tomosynthesis screening BI IMPRESSION: No mammographic evidence of malignancy. ASSESSMENT: BI-RADS 1: Negative RECOMMENDATION: Routine annual mammography screening. This patient's information was entered into a reminder system with a target due date for their next mammogram.
== END 2021-06-15 08:47 | disposition home or self-care (01) ==
LOC: HO.MAMMO 08:46
PROVIDERS: Visit Provider Obstetrics & Gynecology
DX: Z12.31 Encounter for screening mammogram for malignant neoplasm of breast (principal)
CPT/HCPCS: 77063; 77067

== ENCOUNTER 2021-11-03 | Outpatient (REF) | payer OTHER, SELFPAY | END 2021-11-03 00:01 | disposition home or self-care (01) | LOC: CF | PROVIDERS: Visit Provider Surgery | DX: L72.0 Epidermal cyst (principal) | CPT/HCPCS: 11441 ==

== ENCOUNTER 2021-11-03 10:34 | Outpatient (REF) | payer OTHER, SELFPAY | END 2021-11-03 10:35 | disposition home or self-care (01) | LOC: HO.LAB 10:34 | PROVIDERS: Visit Provider Surgery | DX: D23.30 Other benign neoplasm of skin of unspecified part of face (principal) | CPT/HCPCS: 88304 ==

== ENCOUNTER 2021-12-07 15:35 | Outpatient (REF) | payer OTHER, SELFPAY | END 2021-12-07 15:36 | disposition home or self-care (01) | LOC: HO.LAB 15:35 | PROVIDERS: Visit Provider Obstetrics & Gynecology | DX: M67.479 Ganglion, unspecified ankle and foot (principal); R35.0 Frequency of micturition | CPT/HCPCS: 10021; 10160; 87086 ==

== ENCOUNTER 2022-01-13 08:23 | Outpatient (REF) | payer OTHER, SELFPAY ==
[2022-01-13 08:39] LABS: MANUAL DIFF FLAG NO
[2022-01-13 09:14] LABS: Basophils Absolute Auto 0.1 X10*3/uL (0.0-0.2); Basophils Percent Auto 1.1 % (0-2); Eosinophils Absolute Auto 0.3 X10*3/uL (0.0-0.4); Eosinophils Percent Auto 4.2 % (0-4); Hematocrit 40.2 % (37.0-47.0); Hemoglobin 13.3 g/dl (12.0-16.0); Imm Gran Abs Auto 0.02 X10*3/uL (0.00-0.03); Imm Gran Pct Auto 0.3 % (0.0-0.4); Lymphocytes Absolute Auto 1.9 X10*3/uL (1.2-4.9); Lymphocytes Percent Auto 26.1 % (20-40); Mean Corpuscular HGB Conc 33.1 g/dl (31.0-35.0); Mean Corpuscular Hemoglobin 28.5 pg (27.0-33.0); Mean Corpuscular Volume 86.3 fL (80.0-98.0); Mean Platelet Volume 9.6 fL (9.4-12.3); Monocytes Absolute Auto 0.5 X10*3/uL (0.1-1.2); Monocytes Percent Auto 6.7 % (2-11); Neutrophils Absolute Auto 4.5 x10*3/uL (2.0-8.3); Neutrophils Percent Auto 61.6 % (45-73); Platelet Count 343 X10*3/uL (160-400); Red Blood Count 4.66 X10*6/uL (4.20-5.50); Red Cell Distribution Width 13.4 % (11.0-16.0); White Blood Count 7.3 X10*3/uL (4.8-10.8)
[2022-01-13 09:44] LABS: Alanine Aminotransferase 13 U/L (0-31); Albumin Level 4.5 g/dL (3.5-5.0); Alkaline Phosphatase 77 U/L (39-117); Anion Gap 17 (12-20); Aspartate Amino Transferase 20 U/L (5-31); Bilirubin Total 0.3 mg/dL (0.0-1.0); Blood Urea Nitrogen 11 mg/dL (9-16); Calcium 9.3 mg/dL (8.4-10.2); Carbon Dioxide 25 mmol/L (22-29); Chloride 104 mmol/L (96-108); Cholesterol 177 mg/dL; Estimated Glomerular Filt Rate > 60; Glucose Fasting 86 mg/dL (60-99); HDL Cholesterol 54 mg/dL; Iron 84 mcg/dL (30-160); LDL Cholesterol Calculated 101 mg/dl; Percent Iron Saturation 21 % (15-50); Potassium 4.3 mmol/L (3.3-5.1); Sodium 142 mmol/L (135-145); Total Iron Binding Capacity 401 mcg/dL (228-428); Total Protein 6.9 g/dL (6.5-8.0); Triglycerides 111 mg/dL; Unsaturated Iron Binding 317 ug/dL
[2022-01-13 10:09] LABS: Ferritin 8 ng/mL (10-250); TSH reflex Free T4 1.14 uIU/mL (0.32-4.0)
[2022-01-13 11:47] LABS: Appearance Urine Clear; Color Urine Dark Yellow; Glucose Urine UA Negative (Negative); Leukocyte Esterase Urine Negative (Negative); Nitrite Urine Negative (Negative); PH 6.5 (5.0-9.0); Specific Gravity - Urine 1.015 (1.005-1.025); Urine Blood Negative (Negative); Urine Ketones Negative (Negative); Urine Protein Negative (Neg-Trace)
== END 2022-01-13 08:24 | disposition home or self-care (01) ==
LOC: HO.LAB 08:23
PROVIDERS: PCP Nurse Practitioner Family; Visit Provider Nurse Practitioner Family
DX: E61.1 Iron deficiency (principal)
CPT/HCPCS: 36415; 80053; 80061; 81003; 82728; 83540; 84443; 85025

== ENCOUNTER → 2022-01-23 08:44 | Outpatient (BNV) | payer OTHER, SELFPAY | PROVIDERS: PCP Nurse Practitioner Family; Referring Provider Nurse Practitioner Family; Visit Provider Internal Medicine | DX: E61.1 Iron deficiency (principal); Z98.84 Bariatric surgery status | CPT/HCPCS: 99213; 99214 ==

== ENCOUNTER 2022-02-08 07:33 | Outpatient (REF) | payer OTHER, SELFPAY | END 2022-02-08 07:34 | disposition home or self-care (01) | LOC: HO.MDS 07:33 | PROVIDERS: Visit Provider Internal Medicine | DX: D50.9 Iron deficiency anemia, unspecified (principal) | CPT/HCPCS: 96365; J1756 ==

== ENCOUNTER 2022-02-15 07:28 | Outpatient (REF) | payer OTHER, SELFPAY | END 2022-02-15 07:29 | disposition home or self-care (01) | LOC: HO.MDS 07:28 | PROVIDERS: Visit Provider Internal Medicine | DX: D50.9 Iron deficiency anemia, unspecified (principal) | CPT/HCPCS: J1756 ==

== ENCOUNTER 2022-02-15 08:06 | Emergency (ER) | payer OTHER, SELFPAY ==
[2022-02-15 08:14] VITALS: BP 198/113; PULSE 87; RESP 18; TEMP 36.7; O2SAT 97; BMI 36.1
--- NOTE | 2022-02-15 08:18 | ECG_ITS ---
Test Reason : high blood pressure Blood Pressure : / mmHG Vent. Rate : 080 BPM Atrial Rate : 080 BPM P-R Int : 178 ms QRS Dur : 088 ms QT Int : 398 ms P-R-T Axes : 064 -28 056 degrees QTc Int : 459 ms Normal sinus rhythm Intra-ventricular conduction delay Left axis deviation Borderline ECG No previous ECGs available Referred By: Generic ED Physician Electronically Signed By:HAILE GILL MD
--- NOTE | 2022-02-15 08:42 | ED_ITS ---
HPI - General Adult General Chief complaint: General Medical Stated complaint: HBP Time Seen by Provider: 02/15/22 08:27 Source: patient and old records reviewed Limitations: no limitations History of Present Illness HPI narrative: Patient presenting with hypertension. She has a history of low iron and today was coming for an iron infusion. They found her blood pressure to be elevated and sent her to the emergency department. Patient denies any current symptoms but states she had about an hour of chest pressure yesterday. 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 She states she was sitting most of the time. No radiation. No dyspnea. No change with inspiration. She has never had that symptom before sense. No symptoms with ambulation. She does have headaches. None right now. No weakness numbness or paresthesias. She is on metoprolol. No recent medication changes. She states it has been at least a few years since she remembers having a normal blood pressure reading. Review of blood pressure readings from our facility show typically elevated blood pressures with systolic ranging from 140-180. Diastolic from 80-97. Occasionally up to 100. She has had 3 normal blood pressure readings in the last year. Risk factors include extensive family history of young cardiovascular disease. Smoking daily. Hypertension. High cholesterol. Related Data Home Medications Medication Instructions Recorded Confirmed cyanocobalamin (vitamin B-12) 1,000 mcg PO DAILY 04/20/20 12/07/21 1,000 mcg capsule ibuprofen 200 mg tablet 800 mg PO Q8H PRN Pain 04/20/20 12/07/21 lansoprazole 15 mg capsule,delayed 15 mg PO DAILY 04/20/20 12/07/21 release (Prevacid 24Hr) multivitamin 1 tab PO DAILY 04/20/20 12/07/21 thiamine HCl (vitamin B1) 100 mg 100 mg PO DAILY 04/20/20 12/07/21 tablet (Vitamin B-1) calcium carbonate-vitamin D3 PO BID 04/28/20 12/07/21 [Calcium 600 with Vitamin D3] dexamethasone sodium phosphate 0.1 0 drp ophthalmic-Right 01/19/22 % eye drops Previous Rx's Medication Instructions Recorded sumatriptan succinate 100 mg tablet 100 mg PO BID 15 days #30 tabs 07/13/21 citalopram 10 mg tablet 10 mg PO DAILY 90 days #90 tabs 09/25/21 simvastatin 40 mg tablet 40 mg PO BEDTIME 90 days #90 tabs 10/05/21 amitriptyline 25 mg tablet 25 mg PO DAILY 90 days #90 tabs 10/11/21 metoprolol succinate 25 mg 25 mg PO DAILY 90 days #90 tabs 10/11/21 tablet,extended release 24 hr terazosin 1 mg capsule 1 mg PO BEDTIME 90 days #90 caps 01/08/22 oxycodone-acetaminophen 5 mg-325 1 tab PO TID PRN pain 7 days #21 01/25/22 mg tablet (Percocet) tabs fexofenadine 60 mg-pseudoephedrine 1 tab PO Q12H PRN allergy symptoms 01/27/22 ER 120 mg tablet,ext.release,12 hr 30 days #60 tabs (Vanessa-D 12 Hour) amlodipine 5 mg tablet 5 mg PO DAILY #30 tabs 02/15/22 Allergies Allergy/AdvReac Type Severity Reaction Status Date / Time mold Allergy Mild SNEEZING Verified 02/13/22 14:12 prednisone [Prednisone] Allergy Mild NAUSEA & Verified 02/13/22 14:12 VOMITING losartan Allergy Unknown unknown Verified 02/13/22 14:12 clindamycin [CLINDAMYCIN] AdvReac Severe C.DIFFICILE Verified 02/13/22 14:12 procaine [From Novocain] AdvReac Severe NOVOCAIN Verified 02/13/22 14:12 WITH EPI CUSES PALPITATION erythromycin base AdvReac Mild NAUSEA & Verified 02/13/22 14:12 [Erythromycin Base] VOMITING ? disolving stitches Allergy Unknown skin Uncoded 02/13/22 14:12 burn/ulceration adhesives Allergy Unknown skin Uncoded 02/13/22 14:12 burning, blisters Review of Systems Constitutional: Comments: No fevers chills Cardiovascular: Comments: Chest pain yesterday as described Respiratory: Comments: No dyspnea Gastrointestinal: Comments: No abdominal pain or nausea vomiting Integumentary/Breasts: Comments: No rash Neurologic: Comments: Chronic headaches Psychiatric: Comments: Anxiety PMFSH Past Medical History Medical History Anxiety Cyst, dermoid, face Depression High cholesterol History of back pain HTN (hypertension) Hx of iron deficiency anemia Hx of seasonal allergies Migraines Mucous cyst of toe Obesity Smoker Surgical History History of blepharoplasty History of bunionectomy of right great toe History of colposcopy History of foot surgery History of lymph node biopsy History of nasal surgery History of surgical removal of ganglion cyst History of surgical removal of skin lesion (~2021) History of tonsillectomy and adenoidectomy Hx of endoscopy Hx of gastric bypass Hx of tubal ligation Family History Family History Father Hx of diabetes insipidus Mother Hx of diabetes insipidus Maternal Aunt Breast cancer Son No problems noted. Daughter No problems noted. Social History Social History Household Members: None Housing: House Are you a primary complex care nurse practitioner to a significant other at home: No Do you presently have visiting nurse or other home services: No Alcohol intake: never Patient Tobacco Use Status: Current everyday Tobacco user Tobacco use type: Cigarette Years Smoked: 35 Advance Directives: No service: No Current occupational status: employed Current occupation: [employer]- Cognitive needs: No Hearing needs: No Vision needs: No Physical Exam ED Vital Signs: Vital Signs - 24 hr 02/15/22 08:14 02/15/22 09:34 02/15/22 10:35 Temperature 98.0 F 98.1 F Pulse Rate 87 72 78 Respiratory Rate 18 16 18 Blood Pressure 198/113 H 182/105 H 168/102 H Pulse Oximetry 97 98 Oxygen Delivery Method Room Air Room Air BMI result Body Mass Index 36.1 Const Other: Awake and alert in no acute distress Resp Other: Clear and equal bilaterally Cardio Other: Regular rate and rhythm without murmurs rubs or gallops GI Other: Soft nontender nondistended Skin Other: Warm pink and dry without rash Neuro Other: No obvious focal neuro deficits Psych Other: Tearful during history and physical Course Course Course Narrative: Uncontrolled hypertension Chest pain Acute coronary syndrome Hypertensive urgency or emergency 08:48. EKG is normal Will add labs. Will treat with amlodipine here in the emergency department. Given history of hypertension on most readings, will have patient follow her blood pressure at home. Will start on amlodipine. Low-dose 10:42. Blood pressure is improving. It is now 168/102. Patient feels well and is requesting discharge home. Medications Administered Discontinued Medications Generic Name Dose Route Start Last Admin Trade Name Tarun PRN Reason Stop Dose Admin Amlodipine Besylate 10 mg 02/15/22 08:41 02/15/22 09:33 Amlodipine Besylate 10 Mg Tablet PO 02/15/22 08:42 10 mg ONCE ONE Administration Protocol Medical Decision Making Lab Data Result diagrams: 02/15/22 09:09 02/15/22 09:09 Labs: Lab Results 02/15/22 02/15/22 02/15/22 Range/Units 09:09 09:09 09:09 WBC 7.0 (4.8-10.8) X10*3/uL RBC 4.72 (4.20-5.50) X10*6/uL Hgb 13.5 (12.0-16.0) g/dl Hct 41.3 (37.0-47.0) % MCV 87.5 (80.0-98.0) fL MCH 28.6 (27.0-33.0) pg MCHC 32.7 (31.0-35.0) g/dl RDW 13.4 (11.0-16.0) % Plt Count 323 (160-400) X10*3/uL MPV 9.1 L (9.4-12.3) fL Immature Gran % (Auto) 0.4 (0.0-0.4) % Neut % (Auto) 62.5 (45-73) % Lymph % (Auto) 26.1 (20-40) % Hutchinson % (Auto) 6.0 (2-11) % Eos % (Auto) 3.7 (0-4) % Baso % (Auto) 1.3 (0-2) % Lymph # (Auto) 1.8 (1.2-4.9) X10*3/uL Hutchinson # (Auto) 0.4 (0.1-1.2) X10*3/uL Eos # (Auto) 0.3 (0.0-0.4) X10*3/uL Baso # (Auto) 0.1 (0.0-0.2) X10*3/uL Abs Immat Gran (auto) 0.03 (0.00-0.03) X10*3/uL Absolute Neuts (auto) 4.3 (2.0-8.3) x10*3/uL Absolute Nucleated RBC 0.000 (0.0-0.012) X10*3/uL Nucleated RBC % (auto) 0.0 (0.0-0.2) /100WBC Sodium 143 (135-145) mmol/L Potassium 4.3 (3.3-5.1) mmol/L Chloride 106 (96-108) mmol/L Carbon Dioxide 27 (22-29) mmol/L Anion Gap 14 (12-20) BUN 11 (9-16) mg/dL Creatinine 0.73 (0.5-1.4) mg/dL Estim Creat Clear Calc 97.4 Estimated GFR > 60 Random Glucose 91 (60-115) mg/dL Calcium 9.5 (8.4-10.2) mg/dL Total Bilirubin 0.4 (0.0-1.0) mg/dL AST 20 (5-31) U/L ALT 14 (0-31) U/L Alkaline Phosphatase 72 (39-117) U/L Troponin I High Sens < 3.5 (<3.5-17.0) ng/L Total Protein 6.6 (6.5-8.0) g/dL Albumin 4.3 (3.5-5.0) g/dL Discharge Plan Discharge Clinical Impression: Hypertension, Chest pain Patient Disposition: Home, Self-Care Instructions: Chest Pain (ED), Chronic Hypertension (ED) Prescriptions: New amlodipine 5 mg tablet 5 mg PO DAILY Qty: 30 0RF No Action sumatriptan succinate 100 mg tablet 100 mg PO BID 15 Days Qty: 30 3RF citalopram 10 mg tablet 10 mg PO DAILY 90 Days Qty: 90 1RF simvastatin 40 mg tablet 40 mg PO BEDTIME 90 Days Qty: 90 3RF amitriptyline 25 mg tablet 25 mg PO DAILY 90 Days Qty: 90 1RF metoprolol succinate 25 mg tablet extended release 24 hr 25 mg PO DAILY 90 Days Qty: 90 0RF terazosin 1 mg capsule 1 mg PO BEDTIME 90 Days Qty: 90 0RF oxycodone-acetaminophen [Percocet] 5-325 mg tablet 1 tab PO TID PRN (Reason: pain) 7 Days Qty: 21 0RF fexofenadine-pseudoephedrine [Vanessa-D 12 Hour] 60-120 mg tablet extended release 12 hr 1 tab PO Q12H PRN (Reason: allergy symptoms) 30 Days Qty: 60 1RF multivitamin Tablet 1 tab PO DAILY thiamine HCl (vitamin B1) [Vitamin B-1] 100 mg Tablet 100 mg PO DAILY cyanocobalamin (vitamin B-12) 1,000 mcg Capsule 1,000 mcg PO DAILY lansoprazole [Prevacid 24Hr] 15 mg Capsule,Delayed Release(Dr/Ec) 15 mg PO DAILY ibuprofen 200 mg Tablet 800 mg PO Q8H PRN (Reason: Pain) Label Comments: instructed to hold 5-7 days pre-op calcium carbonate-vitamin D3 PO BID Rx Instructions: calcium/vitamin d 600 mg-800 mg dexamethasone sodium phosphate 0.1 % drops 0 drp ophthalmic-Right
--- OUTSIDE RECORDS SUMMARY | 2022-02-15 08:44 | XMS_ITS | Continuity of Care Document ---
:1970 Author Organization [facility] Address [address] [place] [id number]- Care Team Providers Name Role Phone Alen CARTAGENA, Cheo Atkinson Primary Care Physician Encounter [facility] [place] Date(s): 02/01/21 - 02/01/[address] [address] Discharge Disposition: A-D/C Home Attending Physician: Tonie Alcantar MD Admitting Physician: Tonie Alcantar MD Referring Physician: Tonie Alcantar MD Allergies, Adverse Reactions, Alerts Substance Reaction Severity Status clindamycin Active erythromycin Active amoxicillin hives Active predniSONE Procaine Active Procaine procaine Active Mold Active Immunizations Given and Recorded Vaccine Date Status Refusal Reason SARS-CoV-2 (COVID-19) mRNA BNT-162b2 vac 04/16/20 Recorde d SARS-CoV-2 (COVID-19) mRNA BNT-162b2 vac 03/26/20 Recorde d Medications Acetaminophen 0 Refills, Maintenance, 02/15/17 10:20:54 Start Date: 02/15/17 Status: Orderedacetaminophen 325 mg oral tablet 650 mg, 2, tablet, By Mouth, 4 times a day, PRN, # 50 tablet, Refills 0, Tot. Refills 0, Acute 02/18/21 0:00:00 EST, as needed for fever, 02/01/21 9:29:00 EDT, Route to Pharmacy Electronically, [facility] #[id number], Partial fill upon patient re... Start Date: 02/01/21 Stop Date: 02/18/21 Status: OrderedAllegra-D 1 tablet, By Mouth, Every 12 hours, 0 Refills, Maintenance, 02/15/17 10:18:38 Start Date: 02/15/17 Status: OrderedCalcium 600 +D By Mouth, 2 times a day, 0 Refills, Maintenance, 02/15/17 10:19:52 EST Start Date: 02/15/17 Status: Orderedcitalopram 10 mg oral tablet 10 mg, 1, tablet, By Mouth, Daily at bedtime, Refills 0, Maintenance, 02/15/17 10:21:20 EST Start Date: 02/15/17 Status: Orderedmetoprolol 25 mg oral tablet, extended release 25 mg, 1, tablet, By Mouth, Daily, Refills 0, Maintenance, 02/01/21 6:58:00 EDT, Partial fill upon patient request if the prescription is for a schedule II opioid drug. Start Date: 02/01/21 Status: OrderedMotrin IB = 200 mg, By Mouth, Every 6 hours, 0 Refills, Maintenance, 12/20/20 8:16:00 EDT, Partial fill upon patient request if the prescription is for a schedule II opioid drug. Start Date: 12/20/20 Status: OrderedMultivitamin Daily, 0 Refills, Maintenance, 02/15/17 10:19:00 Start Date: 02/15/17 Status: OrderedoxyCODONE 5 mg oral tablet 5 mg, 1, tablet, By Mouth, Every 6 hours, PRN, # 5 tablet, Refills 0, Tot. Refills 0, Acute 210:00:00 EST, for pain, 02/01/21 9:31:00 EDT, Route to Pharmacy Electronically, [facility] #[id number], Partial fill upon patient request if the p... Start Date: 02/01/21 Stop Date: 03/04/21 Status: OrderedOxyCODONE IR Tablet 5 mg, Tablet, By Mouth, Every 4 hours, PRN for Pain , Severe, Routine, 02/01/21 11:04:00 EDT Start Date: 02/01/21 Stop Date: 02/01/21 Status: DiscontinuedPrevacid 15 mg oral enteric coated capsule 1 capsule = 15 mg, By Mouth, Daily in AM, 0 Refills, Maintenance, 02/15/17 10:20:36 EST Start Date: 02/15/17 Status: Orderedsimvastatin 20 mg oral tablet 20 mg, 1, tablet, By Mouth, Daily in AM, Refills 0, Maintenance, 02/15/17 10:20:04 EST Start Date: 02/15/17 Status: OrderedSUMAtriptan 100 mg oral tablet 1 tablet = 100 mg, By Mouth, Daily, PRN for migraine headache, may repeat dose after 2 hours up to amaximum of 2, # 9 tablet, 0 Refills, Maintenance, 12/20/20 8:16:00 EDT, Tablet, Partial fill upon patient request if the prescription is for a schedul... Start Date: 12/20/20 Status: Orderedterazosin 1 mg oral capsule 1 mg, 1, capsule, By Mouth, Daily at bedtime, # 30 capsule, Refills 0, Maintenance, 12/20/20 8:16:00EDT, Partial fill upon patient request if the prescription is for a schedule II opioid drug. Start Date: 12/20/20 Status: OrderedVitamin B1 Every 48 hours, 0 Refills, Maintenance, 02/15/17 10:20:11 EST Start Date: 02/15/17 Status: OrderedVitamin B12 By Mouth, Every 72 hours, 0 Refills, Maintenance, 02/15/17 10:19:32 EST Start Date: 02/15/17 Status: Ordered Problem List Condition Effective Dates Status Health Status Informant Anxiety(Confirmed) Active Depressed(Confirmed) Active Hypercholesteremia(Confirmed) Active Hypertension(Confirmed) Active Iron deficiency anemia(Confirmed) Active Adnexal mass(Confirmed) Active Migraines(Confirmed) Active Urinary incontinence(Confirmed) Active Vital Signs Most recent to oldest 1 2 3 [Reference Range]: Height 160.02 cm 160.02 cm (02/01/21 6:44 AM) (01/24/21 2:59 PM) Weight 89 kg 89.55 kg (02/01/21 6:44 AM) (01/24/21 2:59 PM) Oxygen Saturation [94-100 94 % 94 % 94 % %] (02/01/21 12:06 PM) (02/01/21 12:06 PM) ( 1 12:06 PM) Pulse Rate [55-90 bpm] 68 bpm (02/01/21 6:44 AM) Body Mass Index 34.76 34.97 [18.5-24.99] *>HHI* *>HHI* (02/01/21 6:44 AM) (01/24/21 2:59 PM) Blood Pressure 142/74 mm Hg 142/74 mm Hg 139/75 mm Hg [90-138/55-84 mm Hg] *H* *H* *H* (02/01/21 12:06 PM) (02/01/21 12:06 PM) ( 11:00 AM) Respiratory Rate [16-30 16 br/min 18 br/min 18 br/mi n br/min] (02/01/21 12:48 PM) (02/01/21 12:06 PM) ( 12:06 PM) Temperature [96.8-100.4 97.7 DegF 97.7 DegF 97.2 Deg F DegF] (02/01/21 12:06 PM) (02/01/21 12:06 PM) ( 11:00 AM) Liters per Minute 2 L/min 6 L/min (02/01/21 10:30 AM) (02/01/21 9:45 AM) Mode of Delivery (Oxygen) Room air Room air Room a ir (02/01/21 12:06 PM) (02/01/21 12:06 PM) ( 12:06 PM) Blood pressure sites Arm, right Arm, right (02/01/21 12:06 PM) (02/01/21 6:44 AM) Temperature Route Oral Oral Temporal (02/01/21 12:06 PM) (02/01/21 12:06 PM) ( 11:00 AM) Dry Weight 89 kg 89.55 kg (02/01/21 6:44 AM) (01/24/21 2:59 PM) Weight Obtained Via Standing scale Patient/family stated (02/01/21 6:44 AM) (01/24/21 2:59 PM) Dry Weight Obtained Via Standing scale Patient/family stated (02/01/21 6:44 AM) (01/24/21 2:59 PM) Social History Social History Type Response Smoking Status Smoker, current status unkno wn entered on: 12/20/20 Sex
--- OUTSIDE RECORDS SUMMARY | 2022-02-15 08:44 | XMS_ITS | Continuity of Care Document ---
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 Oncology [address] [place] [id number]- Allergies, Adverse Reactions, Alerts Substance Reaction Severity Status clindamycin Active erythromycin Active predniSONE Procaine Active Procaine procaine Active Mold Active Immunizations Given and Recorded Vaccine Date Status Refusal Reason SARS-CoV-2 (COVID-19) mRNA BNT-162b2 vac 04/16/20 Recorde d SARS-CoV-2 (COVID-19) mRNA BNT-162b2 vac 03/26/20 Recorde d Medications Acetaminophen 0 Refills, Maintenance, 02/15/17 10:20:54 Start Date: 02/15/17 Status: OrderedAllegra-D 1 tablet, By Mouth, Every 12 hours, 0 Refills, Maintenance, 02/15/17 10:18:38 Start Date: 02/15/17 Status: Orderedamitriptyline 25 mg oral tablet 25 mg, 1, tablet, By Mouth, Daily at bedtime, Refills 0, Maintenance, 02/15/17 10:21:13 Start Date: 02/15/17 Status: OrderedCalcium 600 +D By Mouth, 0 Refills, Maintenance, 02/15/17 10:19:52 Start Date: 02/15/17 Status: Orderedcitalopram 10 mg oral tablet 10 mg, 1, tablet, By Mouth, Daily, Refills 0, Maintenance, 02/15/17 10:21:20 Start Date: 02/15/17 Status: OrderedMotrin Cold Childrens 0 Refills, Maintenance, 12/20/20 8:16:00 EDT, Partial fill upon patient request if the prescription is for a schedule II opioid drug. Start Date: 12/20/20 Status: OrderedMotrin IB = 200 mg, By Mouth, Every 6 hours, 0 Refills, Maintenance, 12/20/20 8:16:00 EDT, Partial fill upon patient request if the prescription is for a schedule II opioid drug. Start Date: 12/20/20 Status: OrderedMultivitamin Daily, 0 Refills, Maintenance, 02/15/17 10:19:00 Start Date: 02/15/17 Status: OrderedPrevacid 15 mg oral enteric coated capsule 1 capsule = 15 mg, By Mouth, Daily, 0 Refills, Maintenance, 02/15/17 10:20:36 Start Date: 02/15/17 Status: Orderedsimvastatin 20 mg oral tablet 20 mg, 1, tablet, By Mouth, Daily at bedtime, Refills 0, Maintenance, 02/15/17 10:20:04 Start Date: 02/15/17 Status: OrderedSUMAtriptan 100 mg [...] drug. Start Date: 12/20/20 Status: OrderedVitamin B1 Daily, 0 Refills, Maintenance, 02/15/17 10:20:11 Start Date: 02/15/17 Status: OrderedVitamin B12 0 Refills, Maintenance, 02/15/17 10:19:32 Start Date: 02/15/17 Status: Ordered Problem List Condition Effective Dates Status Health Status Informant Anxiety(Confirmed) Active Depressed(Confirmed) Active Hypercholesteremia(Confirmed) Active Hypertension(Confirmed) Active Iron deficiency anemia(Confirmed) Active Adnexal mass(Confirmed) Active Migraines(Confirmed) Active Urinary incontinence(Confirmed) Active Social History Social History Type Response Smoking Status Smoker, current status unkno wn entered on: 12/20/20 Sex
--- OUTSIDE RECORDS SUMMARY | 2022-02-15 08:44 | XMS_ITS | Continuity of Care Document ---
:1970 Author Organization [facility] Address [address] [place] [address]- Care Team Providers Name Role Phone Alen CARTAGENA, Cheo Atkinson Primary Care Physician Encounter [facility] Date(s): 12/20/20 - 01/19/21 [facility] [address] [place] [id number] Allergies, Adverse Reactions, Alerts Substance Reaction Severity [...]
--- OUTSIDE RECORDS SUMMARY | 2022-02-15 08:44 | XMS_ITS | Continuity of Care Document ---
:1970 Author Organization [facility]CR[facility] On[facility] Address [address] [place] [address]- Care Team Providers Name Role Phone Alen CARTAGENA, Cheo Atkinson Primary Care Physician Encounter [facility] Date(s): 01/07/21 - 02/06/21 [facility] [address] [place] [id number] Allergies, Adverse Reactions, Alerts Substance Reaction Severity [...] 02/01/21 9:29:00 EDT, Route to Pharmacy Electronically, [facility] #[id number], Partial fill upon patient re... Start Date: [...] 02/01/21 9:31:00 EDT, Route to Pharmacy Electronically, [facility] #[id number], Partial fill upon patient request if the p... Start Date: 02/01/21 Stop Date: 03/04/21 Status: OrderedPrevacid 15 mg oral enteric coated [...]
--- OUTSIDE RECORDS SUMMARY | 2022-02-15 08:44 | XMS_ITS | Continuity of Care Document ---
:1970 Author Organization [facility]PLIANCE AUDITOR Oncology Address [address] [place] [address]- Care Team Providers Name Role Phone Alen CARTAGENA, Cheo Atkinson Primary Care Physician Encounter [facility] [place]s): 02/14/21 - 03/16/21 [facility]IANCE AUDITOR Oncology [address] [place], [place] [address] Attending Physician: Crystal Sin Admitting Physician: AdmCrystal miranda Referring Physician: AdmtrCrystal Allergies, Adverse Reactions, Alerts Substance Reaction Severity Status clindamycin Active erythromycin Active amoxicillin hives Active Mold Active procaine Active predniSONE Procaine Active Procaine Immunizations Given and Recorded Vaccine Date Status [...] anemia(Confirmed) Active Adnexal mass(Confirmed) Active Migraines(Confirmed) Active Follow-up examination after Active gynecological surgery(Confirmed) Urinary incontinence(Confirmed) Active Social History Social History Type Response Smoking Status Smoker, current status unkno wn entered on: 12/20/20 Sex
[2022-02-15 09:26] LABS: MANUAL DIFF FLAG NO
[2022-02-15 09:28] LABS: Basophils Absolute Auto 0.1 X10*3/uL (0.0-0.2); Basophils Percent Auto 1.3 % (0-2); Eosinophils Absolute Auto 0.3 X10*3/uL (0.0-0.4); Eosinophils Percent Auto 3.7 % (0-4); Hematocrit 41.3 % (37.0-47.0); Hemoglobin 13.5 g/dl (12.0-16.0); Imm Gran Abs Auto 0.03 X10*3/uL (0.00-0.03); Imm Gran Pct Auto 0.4 % (0.0-0.4); Lymphocytes Absolute Auto 1.8 X10*3/uL (1.2-4.9); Lymphocytes Percent Auto 26.1 % (20-40); Mean Corpuscular HGB Conc 32.7 g/dl (31.0-35.0); Mean Corpuscular Hemoglobin 28.6 pg (27.0-33.0); Mean Corpuscular Volume 87.5 fL (80.0-98.0); Mean Platelet Volume 9.1 fL (9.4-12.3); Monocytes Absolute Auto 0.4 X10*3/uL (0.1-1.2); Neutrophils Absolute Auto 4.3 x10*3/uL (2.0-8.3); Neutrophils Percent Auto 62.5 % (45-73); Platelet Count 323 X10*3/uL (160-400); Red Blood Count 4.72 X10*6/uL (4.20-5.50); Red Cell Distribution Width 13.4 % (11.0-16.0)
[2022-02-15] MEDS: amLODIPine Besylate 10 MG TABLET PO (09:33)
[2022-02-15 09:34] VITALS: BP 182/105; PULSE 72; RESP 16
[2022-02-15 09:46] LABS: Alanine Aminotransferase 14 U/L (0-31); Albumin Level 4.3 g/dL (3.5-5.0); Alkaline Phosphatase 72 U/L (39-117); Anion Gap 14 (12-20); Aspartate Amino Transferase 20 U/L (5-31); Bilirubin Total 0.4 mg/dL (0.0-1.0); Blood Urea Nitrogen 11 mg/dL (9-16); Calcium 9.5 mg/dL (8.4-10.2); Carbon Dioxide 27 mmol/L (22-29); Chloride 106 mmol/L (96-108); Creatinine Clr Calc Pharmacy 97.4; Estimated Glomerular Filt Rate > 60; Glucose Random 91 mg/dL (60-115); Potassium 4.3 mmol/L (3.3-5.1); Sodium 143 mmol/L (135-145); Total Protein 6.6 g/dL (6.5-8.0)
[2022-02-15 09:55] LABS: Troponin-I High Sensitivity < 3.5 ng/L (<3.5-17.0)
[2022-02-15 10:35] VITALS: BP 168/102; PULSE 78; RESP 18; TEMP 36.7; O2SAT 98
== END 2022-02-15 10:52 | disposition home or self-care (01) ==
PROVIDERS: Emergency Provider Emergency Medicine; PCP Nurse Practitioner Family
DX: R07.89 Other chest pain (principal); I10 Essential (primary) hypertension; R51.9 Headache, unspecified; F17.210 Nicotine dependence, cigarettes, uncomplicated; Z71.6 Tobacco abuse counseling; Z79.899 Other long term (current) drug therapy
CPT/HCPCS: 36415; 80053; 84484; 85025; 93005; 99283

== ENCOUNTER 2022-02-27 12:46 | Outpatient (REF) | payer OTHER, SELFPAY | END 2022-02-27 12:47 | disposition home or self-care (01) | LOC: HO.MDS 12:46 | PROVIDERS: Visit Provider Internal Medicine | DX: D50.9 Iron deficiency anemia, unspecified (principal) | CPT/HCPCS: 96365; J1756 ==

== ENCOUNTER → 2022-04-13 13:55 | Outpatient (BNVA) | payer OTHER, SELFPAY | PROVIDERS: PCP Nurse Practitioner Family; Visit Provider Surgery | DX: Z13.89 Encounter for screening for other disorder (principal) ==

== ENCOUNTER 2022-04-17 08:59 | Outpatient (REF) | payer OTHER, SELFPAY | END 2022-04-17 09:00 | disposition home or self-care (01) | LOC: HO.LNP 08:59 | PROVIDERS: PCP Nurse Practitioner Family; Visit Provider Surgery | DX: L98.9 Disorder of the skin and subcutaneous tissue, unspecified (principal) | CPT/HCPCS: 11421; 88305 ==

== ENCOUNTER → 2022-04-24 13:02 | Outpatient (BNVA) | payer OTHER, SELFPAY | PROVIDERS: PCP Nurse Practitioner Family; Visit Provider Surgery | DX: Z13.89 Encounter for screening for other disorder (principal) ==

== ENCOUNTER → 2022-05-05 09:58 | Outpatient (BNVA) | payer OTHER, SELFPAY | PROVIDERS: PCP Nurse Practitioner Family; Visit Provider Orthopaedic Surgery | DX: Z13.89 Encounter for screening for other disorder (principal) ==

== ENCOUNTER → 2022-06-12 08:04 | Outpatient (BNVA) | payer OTHER, SELFPAY | PROVIDERS: PCP Nurse Practitioner Family; Visit Provider Obstetrics & Gynecology | DX: Z13.89 Encounter for screening for other disorder (principal) ==

== ENCOUNTER 2022-06-30 15:57 | Outpatient (REF) | payer OTHER, SELFPAY ==
--- NOTE | ~2022-06-30 | MM_ITS ---
EXAMINATION: MM SCREENING DIGITAL BREAST TOMOSYNTHESIS, BILATERAL CLINICAL INFORMATION: Screening. Asymptomatic. The lifetime risk of breast cancer based on the Tyrer-Cuzick Model is 13%. COMPARISON: Mammography: 06/15/2021, 05/20/2020, 02/28/2019 TECHNIQUE: Digital breast tomosynthesis is performed in both the craniocaudal and mediolateral oblique views along with computer-aided detection (CAD). Synthesized 2D images are generated from the tomosynthesis. FINDINGS: The breasts are almost entirely fatty (ACR BI-RADS breast composition Category a). Background stromal markings are stable. No developing density or architectural abnormality. There are no significant masses, abnormal calcifications, or other abnormalities. The axilla are unremarkable. The skin contours are smooth. No significant changes from prior exams. MM/MM tomosynthesis screening BI IMPRESSION: No mammographic evidence of malignancy. ASSESSMENT: BI-RADS 1: Negative RECOMMENDATION: Routine annual mammography screening. This patient's information was entered into a reminder system with a target due date for their next mammogram.
== END 2022-06-30 15:58 | disposition home or self-care (01) ==
LOC: HO.MAMMO 15:57
PROVIDERS: PCP Nurse Practitioner Family; Visit Provider Nurse Practitioner Family
DX: Z12.31 Encounter for screening mammogram for malignant neoplasm of breast (principal)
CPT/HCPCS: 77063; 77067

== ENCOUNTER 2022-09-12 07:39 | Outpatient (REF) | payer OTHER, SELFPAY ==
[2022-09-12 07:53] LABS: MANUAL DIFF FLAG NO
[2022-09-12 08:23] LABS: Basophils Absolute Auto 0.1 X10*3/uL (0.0-0.2); Basophils Percent Auto 0.7 % (0-2); Eosinophils Absolute Auto 0.3 X10*3/uL (0.0-0.4); Eosinophils Percent Auto 4.4 % (0-4); Hematocrit 41.2 % (37.0-47.0); Hemoglobin 13.8 g/dl (12.0-16.0); Imm Gran Abs Auto 0.02 X10*3/uL (0.00-0.03); Imm Gran Pct Auto 0.3 % (0.0-0.4); Lymphocytes Absolute Auto 1.9 X10*3/uL (1.2-4.9); Lymphocytes Percent Auto 27.2 % (20-40); Mean Corpuscular HGB Conc 33.5 g/dl (31.0-35.0); Mean Corpuscular Hemoglobin 29.2 pg (27.0-33.0); Mean Corpuscular Volume 87.3 fL (80.0-98.0); Mean Platelet Volume 9.4 fL (9.4-12.3); Monocytes Absolute Auto 0.5 X10*3/uL (0.1-1.2); Monocytes Percent Auto 7.4 % (2-11); Neutrophils Absolute Auto 4.2 x10*3/uL (2.0-8.3); Platelet Count 335 X10*3/uL (160-400); Red Blood Count 4.72 X10*6/uL (4.20-5.50); Red Cell Distribution Width 12.7 % (11.0-16.0)
[2022-09-12 08:54] LABS: Alanine Aminotransferase 16 U/L (0-31); Albumin Level 4.2 g/dL (3.5-5.0); Alkaline Phosphatase 71 U/L (39-117); Anion Gap 11 (12-20); Aspartate Amino Transferase 18 U/L (5-31); Bilirubin Total 0.7 mg/dL (0.0-1.0); Blood Urea Nitrogen 14 mg/dL (9-16); Calcium 9.3 mg/dL (8.4-10.2); Carbon Dioxide 27 mmol/L (22-29); Chloride 107 mmol/L (96-108); Cholesterol 161 mg/dL; Estimated Glomerular Filt Rate > 60; Glucose Fasting 86 mg/dL (60-99); HDL Cholesterol 40 mg/dL; Iron 116 mcg/dL (30-160); LDL Cholesterol Calculated 99 mg/dl; Percent Iron Saturation 35 % (15-50); Potassium 4.2 mmol/L (3.3-5.1); Sodium 141 mmol/L (135-145); Total Iron Binding Capacity 328 mcg/dL (228-428); Total Protein 6.4 g/dL (6.5-8.0); Triglycerides 112 mg/dL; Unsaturated Iron Binding 212 ug/dL
[2022-09-12 09:30] LABS: Ferritin 15 ng/mL (10-250); Folate 18.1 ng/mL (> or = 4.0); TSH reflex Free T4 1.14 uIU/mL (0.32-4.0); Vitamin B12 > 2000 pg/mL (200-900)
[2022-09-12 12:34] LABS: Appearance Urine Cloudy; Color Urine Yellow; Glucose Urine UA Negative (Negative); Leukocyte Esterase Urine Negative (Negative); Nitrite Urine Negative (Negative); PH 5.5 (5.0-9.0); Specific Gravity - Urine 1.015 (1.005-1.025); Urine Blood Negative (Negative); Urine Ketones Negative (Negative); Urine Protein Negative (Neg-Trace)
== END 2022-09-12 07:40 | disposition home or self-care (01) ==
LOC: HO.LAB 07:39
PROVIDERS: PCP Nurse Practitioner Family; Visit Provider Nurse Practitioner Family
DX: E61.1 Iron deficiency (principal); R53.83 Other fatigue; E53.8 Deficiency of other specified B group vitamins; I10 Essential (primary) hypertension
CPT/HCPCS: 36415; 80053; 80061; 81003; 82607; 82728; 82746; 83540; 84443; 85025

== ENCOUNTER 2022-09-29 11:31 | Outpatient (REF) | payer OTHER, SELFPAY ==
[2022-09-29 11:46] LABS: MANUAL DIFF FLAG NO
[2022-09-29 12:14] LABS: Basophils Absolute Auto 0.1 X10*3/uL (0.0-0.2); Eosinophils Absolute Auto 0.3 X10*3/uL (0.0-0.4); Eosinophils Percent Auto 4.2 % (0-4); Hematocrit 40.8 % (37.0-47.0); Hemoglobin 13.5 g/dl (12.0-16.0); Imm Gran Abs Auto 0.02 X10*3/uL (0.00-0.03); Imm Gran Pct Auto 0.3 % (0.0-0.4); Lymphocytes Absolute Auto 2.6 X10*3/uL (1.2-4.9); Lymphocytes Percent Auto 33.8 % (20-40); Mean Corpuscular HGB Conc 33.1 g/dl (31.0-35.0); Mean Corpuscular Hemoglobin 29.3 pg (27.0-33.0); Mean Corpuscular Volume 88.7 fL (80.0-98.0); Mean Platelet Volume 9.6 fL (9.4-12.3); Monocytes Absolute Auto 0.6 X10*3/uL (0.1-1.2); Monocytes Percent Auto 8.2 % (2-11); Neutrophils Percent Auto 52.5 % (45-73); Platelet Count 311 X10*3/uL (160-400); Red Cell Distribution Width 13.2 % (11.0-16.0); White Blood Count 7.7 X10*3/uL (4.8-10.8)
[2022-09-29 13:03] LABS: B Type Natriuretic Peptide < 10 pg/mL (<100)
[2022-09-29 13:20] LABS: Alanine Aminotransferase 13 U/L (0-31); Albumin Level 4.1 g/dL (3.5-5.0); Alkaline Phosphatase 69 U/L (39-117); Anion Gap 10 (12-20); Aspartate Amino Transferase 18 U/L (5-31); Bilirubin Total 0.4 mg/dL (0.0-1.0); Blood Urea Nitrogen 14 mg/dL (9-16); Calcium 9.7 mg/dL (8.4-10.2); Carbon Dioxide 29 mmol/L (22-29); Chloride 106 mmol/L (96-108); Estimated Glomerular Filt Rate > 60; Glucose Random 88 mg/dL (60-115); Potassium 4.2 mmol/L (3.3-5.1); Sodium 141 mmol/L (135-145); Total Protein 6.9 g/dL (6.5-8.0)
== END 2022-09-29 11:32 | disposition home or self-care (01) ==
LOC: HO.LAB 11:31
PROVIDERS: PCP Nurse Practitioner Family; Visit Provider Nurse Practitioner Family
DX: R60.0 Localized edema (principal)
CPT/HCPCS: 36415; 80053; 83880; 84443; 85025

== ENCOUNTER → 2022-10-03 12:47 | Outpatient (REF) | payer OTHER, SELFPAY ==
--- NOTE | 2022-10-03 12:50 | CA_ITS ---
Transthoracic Echocardiogram Patient (Last, First, Middle): Coby Stevens M Gender: Female Date of : 1970 Age: 52 Procedure Date: 10/03/2022 Procedure Type: Transthoracic Echocardiogram Location: OP Height: 160.02 cm Weight: 99.79 kg BSA: 2.01 m2 Heart Rate: bpm BP: 146 / 80 mmHg Storeperson: TO Referring MD: Cheo Lowry [facility]- Symptoms: M79.89 - Other specified soft tissue disorders Study Quality: Fair ECG Rhythm: Sinus Conclusions: - The left ventricular systolic function is normal. The calculated ejection fraction is 63% by biplane method. - No obvious valvular pathology seen on this study. - Small plaque is seen in the sinuses of Valsalva. Findings Left Ventricle Normal left ventricular cavity size. The left ventricular systolic function is normal. The calculated ejection fraction is 63% by biplane method. There is no evidence of regional wall motion abnormalities. Diastolic function is normal for age. There is mild septal asymmetric hypertrophy. LV peak GLS 17.6%. Right Ventricle Normal right ventricular cavity size and systolic function. Atria Both atria are normal in size. Aortic Valve There is a normal trileaflet aortic valve. There is no aortic valve stenosis. There is no aortic valve regurgitation. Mitral Valve The mitral valve appears normal. There is no mitral valve regurgitation. There is no mitral valve stenosis. Pulmonic Valve The pulmonic valve is likely normal. Tricuspid Valve There is trace tricuspid valve regurgitation. There is no evidence of pulmonary hypertension. Great Vessels The asc aorta is normal in size. Small plaque is seen in the sinuses of Valsalva. Venous The inferior vena cava is normal in size and collapses greater than 50% with inspiration. Pericardium/Pleural There is no evidence of pericardial effusion. Prior Study Comparison No significant change compared to prior study dated: 03/07/2016. Recommendations, Care & Conclusions No obvious valvular pathology seen on this study. Measurements 2D Linear Measurements IVSd: 1.20 0.6-0.9/0.6-1.0 cm LVIDd: 4.83 3.9-5.3/4.2-5.9 cm LVIDd Index: 2.40 2.4-3.2/2.2-3.1 cm/m2 LVIDs: 2.83 2.0-3.6 cm LVPWd: 0.89 0.7-1.1 cm LA Diam: 3.10 2.7-3.8/3.0-4.0 cm LAIDs Index: 1.54 1.5-2.3 cm/m2 LV Mass: 227.74 67-162/88-224 g LV Mass Index: 113.30 43-95/49-115 g/m2 LVOT Diam: 2.10 3.0+(-)1.3 cm 2D Systolic Function EF 4C: 61.30 >55% EF 2C: 65.60 >55% EF BiP: 62.90 >55% Mitral Valve MV Pk E: 0.87 MV PK A: 0.56 MV Decel Time: 231.00 E/A: 1.60 E'Lateral: 9.25 E'Medial: 6.42 E/E' Med: 13.60 E/E' Lat: 9.40 PHT: 68.00 MVA PHT: 3.24 Decel [place]: 3.76 Aortic Valve AoV Pk Alber: 1.25 AoV Mn Alber: 0.91 AoV VTI: 0.29 AoV Pk Grad: 6.00 Aov Mn Grad: 4.00 GAYE Cont.VTI: 2.43 LVOT LVOT Pk Alber: 0.98 LVOT Mn Alber: 0.67 LVOT VTI: 0.20 LVOT Pk Grad: 4.00 LVOT Mn Grad: 2.00 LVOT Diam: 2.10 LVOT Area: 3.46 Diastolic Function MV Pk E: 0.87 MV Pk A: 0.56 E/A: 1.60 E'Medial: 6.42 E/E' Med: 13.60 E' Laterial: 9.25 E/E' Lat: 9.40 Right Ventricle TAPSE (mm): 19.90 TVS' Alber: 10.60 Tricuspid Valve TR Pk Alber: 1.89 TR Pk Grad: 14.00 RA Press: 3.00 RVSP: 17.00 Great Vessels Aorta Sinus of Valsalva: 3.42 2.0-3.5 cm Ao Asc: 3.50 2.1-3.4 cm Updated in Other Vendor System with Status of Final Delvis Morales MD electronically signed on 10/03/2022 4:44:07 PM with status of Final
== END ==
LOC: HO.CARD 12:47
PROVIDERS: PCP Nurse Practitioner Family; Visit Provider Nurse Practitioner Family
DX: R60.0 Localized edema (principal)
CPT/HCPCS: 93306; 93356

== ENCOUNTER 2022-11-03 10:26 | Outpatient (REF) | payer OTHER, SELFPAY ==
[2022-11-03 12:50] LABS: Alanine Aminotransferase 17 U/L (0-31); Albumin Level 4.1 g/dL (3.5-5.0); Alkaline Phosphatase 72 U/L (39-117); Anion Gap 18 (12-20); Aspartate Amino Transferase 18 U/L (5-31); Bilirubin Total 0.4 mg/dL (0.0-1.0); Blood Urea Nitrogen 11 mg/dL (9-16); Calcium 9.7 mg/dL (8.4-10.2); Carbon Dioxide 20 mmol/L (22-29); Chloride 107 mmol/L (96-108); Estimated Glomerular Filt Rate > 60; Glucose Random 85 mg/dL (60-115); Magnesium 2.1 mg/dL (1.6-2.6); Potassium 4.2 mmol/L (3.3-5.1); Sodium 141 mmol/L (135-145); Total Protein 6.9 g/dL (6.5-8.0)
[2022-11-03 14:52] LABS: CDiff Gene PCR NEGATIVE (Negative)
== END 2022-11-03 10:27 | disposition home or self-care (01) ==
LOC: HO.LAB 10:26
PROVIDERS: PCP Nurse Practitioner Family; Visit Provider Nurse Practitioner Family
DX: R19.7 Diarrhea, unspecified (principal); R60.9 Edema, unspecified
CPT/HCPCS: 36415; 80053; 83735; 87493

== ENCOUNTER 2022-12-22 08:21 | Outpatient (REF) | payer OTHER, SELFPAY ==
[2022-12-22 08:43] LABS: MANUAL DIFF FLAG NO
[2022-12-22 09:25] LABS: Basophils Absolute Auto 0.1 X10*3/uL (0.0-0.2); Eosinophils Absolute Auto 0.3 X10*3/uL (0.0-0.4); Eosinophils Percent Auto 4.2 % (0-4); Hematocrit 41.5 % (37.0-47.0); Hemoglobin 14.1 g/dl (12.0-16.0); Imm Gran Abs Auto 0.01 X10*3/uL (0.00-0.03); Imm Gran Pct Auto 0.1 % (0.0-0.4); Lymphocytes Absolute Auto 1.8 X10*3/uL (1.2-4.9); Lymphocytes Percent Auto 26.5 % (20-40); Mean Corpuscular Hemoglobin 29.4 pg (27.0-33.0); Mean Corpuscular Volume 86.6 fL (80.0-98.0); Mean Platelet Volume 9.3 fL (9.4-12.3); Monocytes Absolute Auto 0.4 X10*3/uL (0.1-1.2); Monocytes Percent Auto 5.7 % (2-11); Neutrophils Absolute Auto 4.3 x10*3/uL (2.0-8.3); Neutrophils Percent Auto 62.5 % (45-73); Platelet Count 319 X10*3/uL (160-400); Red Blood Count 4.79 X10*6/uL (4.20-5.50); Red Cell Distribution Width 12.8 % (11.0-16.0); White Blood Count 6.9 X10*3/uL (4.8-10.8)
[2022-12-22 11:30] LABS: Alanine Aminotransferase 15 U/L (0-31); Albumin Level 4.3 g/dL (3.5-5.0); Alkaline Phosphatase 75 U/L (39-117); Anion Gap 14 (12-20); Aspartate Amino Transferase 19 U/L (5-31); Bilirubin Total 0.5 mg/dL (0.0-1.0); Blood Urea Nitrogen 11 mg/dL (9-16); Calcium 9.6 mg/dL (8.4-10.2); Carbon Dioxide 25 mmol/L (22-29); Chloride 106 mmol/L (96-108); Cholesterol 187 mg/dL (<200); Estimated Glomerular Filt Rate > 60; Glucose Fasting 95 mg/dL (60-99); HDL Cholesterol 46 mg/dL (>40); Iron 101 mcg/dL (30-160); LDL Cholesterol Calculated 109 mg/dL (<100); Percent Iron Saturation 31 % (15-50); Potassium 3.9 mmol/L (3.3-5.1); Sodium 141 mmol/L (135-145); Total Iron Binding Capacity 328 mcg/dL (228-428); Total Protein 6.8 g/dL (6.5-8.0); Triglycerides 163 mg/dL (<150); Unsaturated Iron Binding 227 ug/dL
[2022-12-22 11:38] LABS: Ferritin 16 ng/mL (10-250); TSH reflex Free T4 0.83 uIU/mL (0.32-4.0); Vitamin D 25-OH Total 45.3 ng/mL (>30)
[2022-12-22 11:53] LABS: Appearance Urine Clear; Color Urine Yellow; Glucose Urine UA Negative (Negative); Leukocyte Esterase Urine Negative (Negative); Nitrite Urine Negative (Negative); Urine Blood Negative (Negative); Urine Ketones Negative (Negative); Urine Protein Negative (Neg-Trace)
[2022-12-22 12:00] LABS: Folate 16.2 ng/mL (> or = 4.0); Vitamin B12 1138 pg/mL (200-900)
== END 2022-12-22 08:22 | disposition home or self-care (01) ==
LOC: HO.LAB 08:21
PROVIDERS: PCP Nurse Practitioner Family; Visit Provider Nurse Practitioner Family
DX: E53.8 Deficiency of other specified B group vitamins (principal); I10 Essential (primary) hypertension; R53.83 Other fatigue; D64.9 Anemia, unspecified; E55.9 Vitamin D deficiency, unspecified
CPT/HCPCS: 36415; 80053; 80061; 81003; 82306; 82607; 82728; 82746; 83540; 84443; 85025

== ENCOUNTER 2022-12-28 15:28 | Outpatient (AMB) | payer OTHER, SELFPAY ==
[2022-12-28 16:03] VITALS: BP 142/86; PULSE 76; O2SAT 95; BMI 37.9
--- NOTE | 2022-12-28 16:03 | A.OFFPC_ITS ---
Vital Signs 12/28/22 16:03 12/28/22 16:43 Height 5 ft 3 in Weight 214 lb BMI 37.9 BP 142/86 H 138/86 Blood Pressure Location Lt brachial Rt brachial Position Sitting Sitting Pulse 76 Pulse Source Pulse Oximeter Pulse Oximetry (%) 95 Oxygen Delivery Method Room Air Intake Visit Reasons: 4m follow up Allergies mold Allergy (Mild, Verified 12/28/22 16:07) SNEEZING prednisone [Prednisone] Allergy (Mild, Verified 12/28/22 16:07) NAUSEA & VOMITING losartan Allergy (Unknown, Verified 12/28/22 16:07) unknown clindamycin [CLINDAMYCIN] Adverse Reaction (Severe, Verified 12/28/22 16:07) C.DIFFICILE procaine [From Novocain] Adverse Reaction (Severe, Verified 12/28/22 16:07) NOVOCAIN WITH EPI CUSES PALPITATION erythromycin base [Erythromycin Base] Adverse Reaction (Mild, Verified 12/28/22 16:07) NAUSEA & VOMITING ? disolving stitches Allergy (Unknown, Uncoded 12/28/22 16:07) skin burn/ulceration adhesives Allergy (Unknown, Uncoded 12/28/22 16:07) skin burning, blisters Tobacco use date assessed: 12/28/22 Dental Screening Dental Screen Date: 12/28/22 Did you have a dental visit in the last 12 months?: Yes Did you have a dental problem in the last 6 months where you did not have access to dental care?: No Was dental information given to patient?: Patient has dentist HPI 4m follow up HPI Details Pt c/o left knee pain. She reports that the pain is worse with weight- bearing. Will order XR and refer to ortho. HTN: Blood pressure is managed with furosemide 10mg, irbesartan 75mg, and metoprolol 25mg. Pt does not check her blood pressure outside of the office (lately). Will have pt monitor her blood pressure at home/work. Denies chest pain, shortness of breath, headache, dizziness, and blurred vision. Pt reports swelling of her LLE. She also reports intermittent calf pain. Will order US to r/o DVT. PFSH Medical History Anxiety Cyst, dermoid, face Depression High cholesterol History of back pain HTN (hypertension) Hx of iron deficiency anemia Hx of seasonal allergies Hyperplastic colon polyp (~2020) Migraines Mucous cyst of toe Obesity Skin lesion of neck Smoker Surgical History History of blepharoplasty (~2014) History of bunionectomy of right great toe (~2011) History of colonoscopy (~2020) History of colposcopy (~2008) History of foot surgery (~2014) History of gastric bypass (~2016) History of lymph node biopsy (~2017) History of nasal surgery (~2008) History of surgical removal of ganglion cyst (~2011) History of surgical removal of skin lesion (~2021) History of tonsillectomy and adenoidectomy (~1985) History of tubal ligation (~2006) Hx of endoscopy Family History Father Hx of diabetes insipidus Mother Hx of diabetes insipidus Maternal Aunt Breast cancer Son No problems noted. Daughter No problems noted. Social History Household Members: None Housing: House Are you a primary manager home healthcare to a significant other at home: No Do you presently have visiting nurse or other home services: No Alcohol intake: never Patient Tobacco Use Status: Current everyday Tobacco user Tobacco use type: Cigarette Cigarettes Per Day: 6 Years Smoked: 35 e-Cigarette/Vaping Use: Never Used Second Hand Smoke Exposure: No service: No Current occupational status: employed Current occupation: [employer] [place]- Cognitive needs: No Hearing needs: No Vision needs: No Questionnaire Thrive Questionnaire Date Thrive assessed: 05/01/22 BARB-7 AMB Questionnaire BARB-7 Date BARB - 7 assessed: 05/01/22 Source: Developed by Drs. Golden Dunn, Shabnam Cortez, Sam Hernandes and colleagues, with an educational kieran from [employer]. Review of Systems Const Reports as per HPI Physical exam (Primary Care) Vital Signs: Last Vital Signs Pulse 76 12/28/22 16:03 BP 138/86 12/28/22 16:43 Pulse Ox 95 12/28/22 16:03 Oxygen Delivery Method Room Air 12/28/22 16:03 BMI result Body Mass Index 37.9 Tobacco/Smoking Status: Tobacco use Status Tobacco use date assessed 12/28/22 12/28/22 16:14 Patient Tobacco Use Status Current everyday Tobacco 12/28/22 16:14 Tobacco use type Cigarette 12/28/22 16:14 e-Cigarette/Vaping Use Never Used 12/28/22 16:14 Thrive Assessment: Date of Thrive Assessment Date Thrive assessed 05/01/22 12/28/22 16:14 Const General: cooperative Nutritional Appearance: obese Orientation/consciousness: patient oriented x3 Resp Effort & Inspection: normal respiratory effort Auscultation: clear to auscultation bilaterally Cardio Rate: regular rate Rhythm: regular rhythm Heart sounds: S1 normal heart sound present and S2 normal heart sound present Neuro General: patient oriented x3 Extrem Other: left kne with faint swelling, able to extend and flex without pain. neg lachmans, neg mcmurrays, crepitus noted. Psych Appearance: grossly normal Mental Status: mental status grossly normal Speech and movement: Normal speech and movement present Affect: normal affect Attitude: cooperative Thought process: Normal thought process present Thought content: Normal thought content present Insight: Good insight present (Psych) Judgement: Good judgement present (Psych) Assessment and Plan Assessment & Plan (1) Left knee pain: Code(s): M25.562 - Pain in left knee Plan: XR ordered, referred to ortho (2) Edema: Code(s): R60.9 - Edema, unspecified Plan: US ordered (3) Pain of left calf: Code(s): M79.662 - Pain in left lower leg Plan: US ordered (4) HTN (hypertension): Code(s): I10 - Essential (primary) hypertension Plan The patient agreed to the use of a senior medical writer for this encounter. Scribed for DARON Linares- by Diamante Bird senior medical writer, on 12/28/2022 at 16:20 EST. Orders: Orders XR knee LT 2V Today M25.562 - Pain in left knee US venous duplex LE LT Today M79.662 - Pain in left lower leg, R60.9 - Edema, unspecified Referrals Orthopedics Referral M25.562 - Pain in left knee Coding Level of Care Code Est Pt Level 3 (48208) Diagnoses Left knee pain M25.562 Edema R60.9 Pain of left calf M79.662 HTN (hypertension) I10
[2022-12-28 16:43] VITALS: BP 138/86
== END 2022-12-28 16:49 | disposition home or self-care (01) ==
PROVIDERS: Visit Provider Nurse Practitioner Family
DX: M25.562 Pain in left knee (principal); R60.9 Edema, unspecified; M79.662 Pain in left lower leg; I10 Essential (primary) hypertension
CPT/HCPCS: 99213

== ENCOUNTER 2022-12-28 17:08 | Outpatient (REF) | payer OTHER, SELFPAY ==
--- NOTE | ~2022-12-28 | US_ITS ---
EXAMINATION: US VENOUS ULTRASOUND WITH DOPPLER LOWER EXTREMITY, LEFT CLINICAL INFORMATION: Edema COMPARISON: None available. TECHNIQUE: Ultrasound of the deep veins is performed from the hip to the calf with compression sonography and color and pulse Doppler assessment. Spectral analysis with color-flow imaging is performed. FINDINGS: There is normal venous compression and respiratory variation and augmented flow. The visualized common femoral vein, superficial femoral vein, profunda femoral vein, popliteal vein, and the trifurcation region shows no evidence of deep venous thrombosis. There is no significant popliteal fossa cyst. If the patient's symptoms persist, followup ultrasound in 5 days 7 days might be of value to exclude proximal propagation from a non-visualized calf vein. US/US venous duplex LE LT IMPRESSION: No DVT demonstrated in the left lower extremity.
--- NOTE | ~2022-12-28 | XR_ITS ---
EXAMINATION: XR KNEE, LEFT CLINICAL INFORMATION: Pain in the left knee COMPARISON: Venous ultrasound performed same day TECHNIQUE: Four views of the left knee. FINDINGS: No fracture or joint effusion. Alignment is anatomic. Joint spaces are maintained. Question soft tissue prominence in the subcutaneous soft tissues over the medial aspect of the knee seen only on the patella view. XR/XR knee LT 2V IMPRESSION: 1. No acute osseous abnormality. 2. Question soft tissue prominence in the subcutaneous soft tissues over the medial aspect of the knee seen only on the patella view. This could reflect a soft tissue contusion
== END 2022-12-28 17:09 | disposition home or self-care (01) ==
LOC: HO.US 17:08
PROVIDERS: PCP Nurse Practitioner Family; Visit Provider Nurse Practitioner Family
DX: R60.9 Edema, unspecified (principal); M79.662 Pain in left lower leg; M25.562 Pain in left knee
CPT/HCPCS: 73560; 93971

== ENCOUNTER 2023-01-26 14:53 | Outpatient (AMB) | payer OTHER, SELFPAY ==
--- NOTE | 2023-01-26 14:59 | MHC.OFFVIS ---
Intake Vital Signs 01/26/23 15:03 Height 5 ft 3 in Weight 214 lb BMI 37.9 Intake Visit Reasons: Newprob-Left knee pain Intake Note: Coby is a 52 year old female who presents today for a evaluation for her left knee pain. Patient reports having pain for 2 months. No previous treatment. She states the her pain is worse when kneeling on it. Allergies mold Allergy (Mild, Verified 01/26/23 15:03) SNEEZING prednisone [Prednisone] Allergy (Mild, Verified 01/26/23 15:03) NAUSEA & VOMITING losartan Allergy (Unknown, Verified 01/26/23 15:03) unknown clindamycin [CLINDAMYCIN] Adverse Reaction (Severe, Verified 01/26/23 15:03) C.DIFFICILE procaine [From Novocain] Adverse Reaction (Severe, Verified 01/26/23 15:03) NOVOCAIN WITH EPI CUSES PALPITATION erythromycin base [Erythromycin Base] Adverse Reaction (Mild, Verified 01/26/23 15:03) NAUSEA & VOMITING ? disolving stitches Allergy (Unknown, Uncoded 12/28/22 16:07) skin burn/ulceration adhesives Allergy (Unknown, Uncoded 12/28/22 16:07) skin burning, blisters HPI Newprob-Left knee pain HPI Details 52-year-old female who presents in the office today for an evaluation of left knee pain. The patient reports having pain for 2 months, since 11/2022, when she put her knee on the soft bed which caused an increase in pain. She denies any prior treatment. She claims she has an increase in pain with kneeling on it. She states she does not have pain with ambulation. She reports she has been having cramping in the left lower extremity. She was sent for an ultrasound to rule out DVTs. [facility] Medical History Anxiety Cyst, dermoid, face Depression High cholesterol History of back pain HTN (hypertension) Hx of iron deficiency anemia Hx of seasonal allergies Hyperplastic colon polyp (~2020) Migraines Mucous cyst of toe Obesity Skin lesion of neck Smoker Surgical History History of blepharoplasty (~2014) History of bunionectomy of right great toe (~2011) History of colonoscopy (~2020) History of colposcopy (~2008) History of foot surgery (~2014) History of gastric bypass (~2016) History of lymph node biopsy (~2017) History of nasal surgery (~2008) History of surgical removal of ganglion cyst (~2011) History of surgical removal of skin lesion (~2021) History of tonsillectomy and adenoidectomy (~1985) History of tubal ligation (~2006) Hx of endoscopy Family History Father Hx of diabetes insipidus Mother Hx of diabetes insipidus Maternal Aunt Breast cancer Son No problems noted. Daughter No problems noted. Social History Household Members: None Housing: House Are you a primary career education teacher to a significant other at home: No Do you presently have visiting nurse or other home services: No Alcohol intake: never Patient Tobacco Use Status: Current everyday Tobacco user Tobacco use type: Cigarette Cigarettes Per Day: 6 Years Smoked: 35 e-Cigarette/Vaping Use: Never Used Second Hand Smoke Exposure: No service: No Current occupational status: employed Current occupation: [employer] [place]- Cognitive needs: No Hearing needs: No Vision needs: No Review of Systems Const All systems reviewed & are unremarkable except as noted in HPI and below Physical Exam Vital Signs: BMI result Body Mass Index 37.9 Const General: cooperative, healthy appearing and no acute distress Resp Effort & Inspection: normal respiratory effort and able to speak in complete sentences Cardio Rate: regular rate Peripheral pulses: Peripheral pulses 2+ throughout GI Palpation (GI): Soft to palpation Skin Lesions: no lesions Rashes: no rashes Extrem Other: Left knee: Full ROM in all planes. Tenderness to palpation lateral patella. Crepitus with ROM. NVI. Office Procedures Joint Injection/Drain Joint Injection/Drain Primary Site: left knee Prep: site was prepped using aseptic technique, ethochloride spray was applied and injection warnings given Injected: 80 mg of, DepoMedrol, with 8 mL of (2% plain lido) and in the joint Approach Used: anterolateral Procedure: The patient tolerated the procedure well, but had some pain with the injection and there was some relief with the local anesthesia Coding 31999 - Large joint Procedure code (CPT) selection complete Results Reviewed Results Reviewed: 10/20/23 15:09 Lidocaine HCl 2 % MPF [Xylocaine 2 % MPF] 5 ml .ROUTE .STK-MED ONE methylPREDNISolone acetate [DEPO-MedroL] 80 mg .ROUTE .STK-MED ONE Assessment & Plan Assessment & Plan (1) Patellofemoral syndrome, left: Code(s): M22.2X2 - Patellofemoral disorders, left knee Plan Ms. Stevens is a 52-year-old female who presents in the office today for an evaluation of left knee pain. The patient reports having pain for 2 months, since 11/2022, when she put her knee on the soft bed which caused an increase in pain. She denies any prior treatment. She claims she has an increase in pain with kneeling on it. She states she does not have pain with ambulation. She reports she has been having cramping in the left lower extremity. She was sent for an ultrasound to rule out DVTs which was negative. I discussed the role of cortisone injection, knee brace, and physical therapy. She would like to proceed with the cortisone injection and defer on the remaining options at this time. In the event this does not give her relief she will call the office to move forward with physical therapy and bracing. The patient was offered a cortisone injection in the left knee with 80 mg of DepoMedrol. The patient was explained the risk, benefits, and alternatives to receiving this injection. After receiving consent for the injection, the patient had the procedure done while in office today. The patient tolerated the procedure well with no complications. Follow up will be PRN, or sooner if needed. X-rays of the left knee obtained while in the office today and reviewed by me, Karen Stock PA-C, revealed patella lateralization and minimal arthritic changes. Ultrasound of the left lower extremity, obtained on 12/28/2022, revealed: No DVT demonstrated in the left lower extremity. Orders: Orders XR knee standing BI Today M25.569 - Pain in unspecified knee Patient Instructions: Scribed for Karen Stock PA-C by Ofelia Curtis medical associate, on 01/26/2023 at 2:56 pm, EST. Coding Level of Care Code New Pt Level 4 (04175) Diagnoses Patellofemoral syndrome, left M22.2X2 CPT Codes Coding - 71377 Large joint: 54057 - Large joint ([id number])
[2023-01-26 15:03] VITALS: BMI 37.9
== END 2023-01-26 15:26 | disposition home or self-care (01) ==
PROVIDERS: PCP Nurse Practitioner Family; Visit Provider Physician Assistant
DX: M22.2X2 Patellofemoral disorders, left knee (principal)
CPT/HCPCS: 20610; 99204

== ENCOUNTER 2023-01-26 16:03 | Outpatient (REF) | payer OTHER, SELFPAY ==
--- NOTE | ~2023-01-26 | XR_ITS ---
EXAMINATION: XR KNEE AP STANDING CLINICAL INFORMATION: Pain. COMPARISON: Left knee radiographs dated 12/28/2022. TECHNIQUE: AP bilateral standing view of the knees was obtained. FINDINGS: No fracture or joint effusion. Alignment is anatomic. Joint spaces are maintained. No abnormal soft tissue calcification. XR/XR knee standing BI IMPRESSION: Normal knees.
== END 2023-01-26 16:04 | disposition home or self-care (01) ==
LOC: HO.HOSX 16:03
PROVIDERS: Visit Provider Physician Assistant
DX: M22.2X2 Patellofemoral disorders, left knee (principal); M25.562 Pain in left knee
CPT/HCPCS: 20610; 73565; J1040

== ENCOUNTER 2023-02-20 13:48 | Outpatient (AMB) | payer OTHER, SELFPAY ==
--- NOTE | 2023-02-20 14:50 | A.OFFVIS_ITS ---
Intake Intake Visit Reasons: Pelvic floor dysfunction- 1yr follow up Allergies mold Allergy (Mild, Verified 03/26/23 15:31) SNEEZING prednisone [Prednisone] Allergy (Mild, Verified 03/26/23 15:31) NAUSEA & VOMITING losartan Allergy (Unknown, Verified 03/26/23 15:31) unknown clindamycin [CLINDAMYCIN] Adverse Reaction (Severe, Verified 03/26/23 15:31) C.DIFFICILE procaine [From Novocain] Adverse Reaction (Severe, Verified 03/26/23 15:31) NOVOCAIN WITH EPI CUSES PALPITATION erythromycin base [Erythromycin Base] Adverse Reaction (Mild, Verified 03/26/23 15:31) NAUSEA & VOMITING ? disolving stitches Allergy (Unknown, Uncoded 03/26/23 15:31) skin burn/ulceration adhesives Allergy (Unknown, Uncoded 03/26/23 15:31) skin burning, blisters HPI HPI Comments History of Present Illness Details Coby is a very pleasant female. He is a patient Dr. Clarke. She seen for following urologic conditions - lower urinary tract symptoms - lack of bladder compliance with pelvic floor discomfort Telemedicine Evaluation 15 min Consultation Pusher Adria Video attempted Has been doing very well Would like to try coming off alpha-manuela Discussed recurrence of symptoms and she can restart if problematic Mentioned hormone replacement therapy as consideration based on symptomatology Lower urinary tract symptoms with urgency on coffee Did well on combination medication with amitriptyline at night and alpha-manuela Good response to alpha-manuela when symptomatic 07/28 cystoscopy showed collagen depositi on Initial Pelvic exam with right-sided pelvic wall tightness, Discomfort midline behind bladder Twelve month review [facility] Medical History Skin lesion of neck Mucous cyst of toe Cyst, dermoid, face HTN (hypertension) Hyperplastic colon polyp (~2020) Obesity Smoker History of back pain Hx of seasonal allergies Hx of iron deficiency anemia Depression Anxiety High cholesterol Migraines Surgical History History of colonoscopy (~2020) History of tubal ligation (~2006) History of gastric bypass (~2016) History of surgical removal of skin lesion (~2021) History of lymph node biopsy (~2017) History of blepharoplasty (~2014) History of colposcopy (~2008) History of tonsillectomy and adenoidectomy (~1985) History of surgical removal of ganglion cyst (~2011) History of foot surgery (~2014) History of bunionectomy of right great toe (~2011) History of nasal surgery (~2008) Hx of endoscopy Family History Father Hx of diabetes insipidus Mother Hx of diabetes insipidus Maternal Aunt Breast cancer Son No problems noted. Daughter No problems noted. Social History Household Members: None Housing: House Are you a primary caregivers homecare to a significant other at home: No Do you presently have visiting nurse or other home services: No Alcohol intake: never Comment: Patient states is tolerable Patient Tobacco Use Status: Current everyday Tobacco user Tobacco use type: Cigarette Cigarettes Per Day: 6 Years Smoked: 35 e-Cigarette/Vaping Use: Never Used Second Hand Smoke Exposure: No service: No Current occupational status: employed Current occupation: [employer] [place]- Cognitive needs: No Hearing needs: No Vision needs: No Review of Systems Const All systems reviewed & are unremarkable except as noted in HPI and below Reports no additional complaints Resp Reports no additional complaints GI Reports no additional complaints Reports as per HPI Musc Reports no additional complaints Physical Exam Telemedicine evaluation Appropriate responses Regular breathing rate and rhythm HEENT Head: Yes normal to inspection Ears: hearing grossly normal bilaterally Eyes General: appearance normal, both eyes and all related structures Neck Neck: Yes normal visual inspection Chest Chest palpation & inspection: normal inspection of the chest Resp Effort & Inspection: normal respiratory effort and able to speak in complete sentences Assessment & Plan Assessment & Plan (1) Urine frequency: Code(s): R35.0 - Frequency of micturition (2) High-tone pelvic floor dysfunction: Code(s): N94.89 - Other specified conditions associated with female genital organs and menstrual cycle (3) Urinary retention with incomplete bladder emptying: Code(s): R33.9 - Retention of urine, unspecified Plan Continue terazosin Twelve month follow-up Medications: Changed From terazosin 1 mg PO BEDTIME 30 caps 4RF To terazosin 1 mg PO BEDTIME 90 caps 3RF 90 days Patient Instructions: Imaging studies, laboratory and physical exam results were discussed and reviewed in detail. No major barriers to patient understanding were identified. An opportunity to ask questions regarding the treatment plan was provided. All questions were answered. The patient expressed understanding and agreement with the above treatment plan. The patient is aware they should contact our office by phone for worsening of their current condition or the appearance of new urologic symptoms. Compliance is encouraged with any medications and followup testing that is ordered. It is a privilege to participate in the urologic care of your patient. If you have any questions or concerns regarding treatment for the above conditions, or other urologic issues, please do not hesitate to contact me. The office telephone contact is [phone]. This note is constructed using voice recognition software. While every effort has been made to ensure accuracy epic kaleidoscope analyst errors may have been included. Yours sincerely, Dr Nicola Velasquez MD, [facility] - Urology Providers of Expert, Compassionate Care for the Genitourinary System Telehealth Telehealth Location of provider rendering services: practice address Location of patient: address on file Patient Identification confirmed using: Name, : Yes Telehealth method: voice only Patient verbally consented to treatment: Yes Patient verbally consented to billing insurance company: Yes Patient informed of any privacy concerns related to visit: Yes Coding Level of Care Code Est Pt Level 4 (80075) Diagnoses Urine frequency R35.0 High-tone pelvic floor dysfunction N94.89 Urinary retention with incomplete bladder emptying R33.9
== END 2023-02-20 15:00 | disposition home or self-care (01) ==
LOC: HO.HUSH 13:48
PROVIDERS: PCP Nurse Practitioner Family; Visit Provider Urology
DX: R35.0 Frequency of micturition (principal); N94.89 Other specified conditions associated with female genital organs and menstrual cycle; R33.9 Retention of urine, unspecified
CPT/HCPCS: 99442

== ENCOUNTER → 2023-02-20 13:48 | Outpatient (BNVA) | payer OTHER, SELFPAY | PROVIDERS: PCP Nurse Practitioner Family; Visit Provider Urology ==

== ENCOUNTER 2023-03-21 08:24 | Outpatient (REF) | payer OTHER, SELFPAY ==
[2023-03-21 08:39] LABS: MANUAL DIFF FLAG NO
[2023-03-21 09:10] LABS: Basophils Absolute Auto 0.1 X10*3/uL (0.0-0.2); Basophils Percent Auto 0.8 % (0-2); Eosinophils Absolute Auto 0.3 X10*3/uL (0.0-0.4); Eosinophils Percent Auto 3.6 % (0-4); Hematocrit 40.6 % (37.0-47.0); Hemoglobin 13.4 g/dl (12.0-16.0); Imm Gran Abs Auto 0.02 X10*3/uL (0.00-0.03); Imm Gran Pct Auto 0.3 % (0.0-0.4); Lymphocytes Absolute Auto 1.8 X10*3/uL (1.2-4.9); Lymphocytes Percent Auto 24.5 % (20-40); Mean Corpuscular Hemoglobin 28.8 pg (27.0-33.0); Mean Corpuscular Volume 87.1 fL (80.0-98.0); Mean Platelet Volume 9.3 fL (9.4-12.3); Monocytes Absolute Auto 0.5 X10*3/uL (0.1-1.2); Monocytes Percent Auto 6.7 % (2-11); Neutrophils Absolute Auto 4.6 x10*3/uL (2.0-8.3); Neutrophils Percent Auto 64.1 % (45-73); Platelet Count 345 X10*3/uL (160-400); Red Blood Count 4.66 X10*6/uL (4.20-5.50); White Blood Count 7.2 X10*3/uL (4.8-10.8)
[2023-03-21 09:48] LABS: Alanine Aminotransferase 14 U/L (0-31); Albumin Level 4.2 g/dL (3.5-5.0); Alkaline Phosphatase 74 U/L (39-117); Anion Gap 12 (12-20); Aspartate Amino Transferase 22 U/L (5-31); Bilirubin Total 0.4 mg/dL (0.0-1.0); Blood Urea Nitrogen 14 mg/dL (9-16); Calcium 9.4 mg/dL (8.4-10.2); Carbon Dioxide 27 mmol/L (22-29); Chloride 106 mmol/L (96-108); Cholesterol 175 mg/dL (<200); Estimated Glomerular Filt Rate > 60; Glucose Fasting 94 mg/dL (60-99); HDL Cholesterol 49 mg/dL (>40); Iron 95 mcg/dL (30-160); LDL Cholesterol Calculated 103 mg/dL (<100); Percent Iron Saturation 31 % (15-50); Potassium 3.8 mmol/L (3.3-5.1); Sodium 141 mmol/L (135-145); Total Iron Binding Capacity 306 mcg/dL (228-428); Total Protein 6.9 g/dL (6.5-8.0); Triglycerides 115 mg/dL (<150); Unsaturated Iron Binding 211 ug/dL
[2023-03-21 09:58] LABS: HBS Num1 19.86 mIU/mL (0-7.99); HBc Num1 6.05 S/CO (0.00-0.79); HBsAGNum1 0.37 S/CO (0.00-0.99); Hepatitis A Antibody IgM 0.11 Index (0-0.79); Hepatitis B Surface Antigen Negative (Negative); ~HepC Num1 0.11 S/CO (0.00-0.79); ~Hepatitis A Antibody IgM Nonreactive (Nonreactive); ~Hepatitis B Surface Antibody REACTIVE (Nonreactive); ~Hepatitis C Antibody Nonreactive (Nonreactive)
[2023-03-21 10:10] LABS: Ferritin 15 ng/mL (10-250); TSH reflex Free T4 1.11 uIU/mL (0.32-4.0); Vitamin D 25-OH Total 39.8 ng/mL (>30)
[2023-03-21 10:17] LABS: Folate 15.1 ng/mL (> or = 4.0); Vitamin B12 1041 pg/mL (200-900)
[2023-03-21 10:58] LABS: HBc Num2 6.37 S/CO; HBc Num3 6.45 S/CO
[2023-03-21 10:59] LABS: Hepatitis B Core Antibody Reactive (Nonreactive)
[2023-03-21 13:16] LABS: Appearance Urine Clear; Color Urine Yellow; Glucose Urine UA Negative (Negative); Leukocyte Esterase Urine Negative (Negative); Nitrite Urine Negative (Negative); Specific Gravity - Urine 1.015 (1.005-1.025); Urine Blood Negative (Negative); Urine Ketones Negative (Negative); Urine Protein Negative (Neg-Trace)
[2023-03-23 23:08] LABS: Hepatitis B Core Antibody IgM NON-REACTIVE (NON-REACTIVE)
== END 2023-03-21 08:25 | disposition home or self-care (01) ==
LOC: HO.LAB 08:24
PROVIDERS: PCP Nurse Practitioner Family; Visit Provider Nurse Practitioner Family
DX: Z00.00 Encounter for general adult medical examination without abnormal findings (principal); E61.1 Iron deficiency; E53.8 Deficiency of other specified B group vitamins; R53.83 Other fatigue; E55.9 Vitamin D deficiency, unspecified
CPT/HCPCS: 36415; 80053; 80061; 81003; 82306; 82607; 82728; 82746; 83540; 84443; 85025; 86704; 86705; 86706; 86709; 86803; 87340

== ENCOUNTER 2023-03-26 15:14 | Outpatient (AMB) | payer OTHER, SELFPAY ==
--- NOTE | 2023-03-26 15:28 | MHC.PC.OV ---
Vital Signs 03/26/23 15:30 03/26/23 16:19 Height 5 ft 3 in Weight 221 lb BMI 39.1 BP 150/100 H 142/100 H Blood Pressure Location Lt brachial Rt brachial Position Sitting Sitting Pulse 75 Pulse Source Pulse Oximeter Pulse Oximetry (%) 100 Oxygen Delivery Method Room Air Intake Visit Reasons: 3 month follow up Intake Note: Patient here Allergies mold Allergy (Mild, Verified 03/26/23 15:31) SNEEZING prednisone [Prednisone] Allergy (Mild, Verified 03/26/23 15:31) NAUSEA & VOMITING losartan Allergy (Unknown, Verified 03/26/23 15:31) unknown clindamycin [CLINDAMYCIN] Adverse Reaction (Severe, Verified 03/26/23 15:31) C.DIFFICILE procaine [From Novocain] Adverse Reaction (Severe, Verified 03/26/23 15:31) NOVOCAIN WITH EPI CUSES PALPITATION erythromycin base [Erythromycin Base] Adverse Reaction (Mild, Verified 03/26/23 15:31) NAUSEA & VOMITING ? disolving stitches Allergy (Unknown, Uncoded 03/26/23 15:31) skin burn/ulceration adhesives Allergy (Unknown, Uncoded 03/26/23 15:31) skin burning, blisters Tobacco use date assessed: 12/28/22 Dental Screening Did you have a dental visit in the last 12 months?: Yes Did you have a dental problem in the last 6 months where you did not have access to dental care?: No Was dental information given to patient?: Patient has dentist HPI 3 month follow up HPI Details HTN: Blood pressure is elevated today, though she reports being stressed. Will increase irbesartan from 75mg to 150mg. Encouraged pt to monitor her blood pressure at home. Pt previously had swelling of her BLE. This is looking much better. Denies chest pain, shortness of breath, headache, blurred vision, and dizziness. [facility] Medical History Skin lesion of neck Mucous cyst of toe Cyst, dermoid, face HTN (hypertension) Hyperplastic colon polyp (~2020) Obesity Smoker History of back pain Hx of seasonal allergies Hx of iron deficiency anemia Depression Anxiety High cholesterol Migraines Surgical History History of colonoscopy (~2020) History of tubal ligation (~2006) History of gastric bypass (~2016) History of surgical removal of skin lesion (~2021) History of lymph node biopsy (~2017) History of blepharoplasty (~2014) History of colposcopy (~2008) History of tonsillectomy and adenoidectomy (~1985) History of surgical removal of ganglion cyst (~2011) History of foot surgery (~2014) History of bunionectomy of right great toe (~2011) History of nasal surgery (~2008) Hx of endoscopy Family History Father Hx of diabetes insipidus Mother Hx of diabetes insipidus Maternal Aunt Breast cancer Son No problems noted. Daughter No problems noted. Social History Household Members: None Housing: House Are you a primary caregiver services home to a significant other at home: No Do you presently have visiting nurse or other home services: No Alcohol intake: never Comment: Patient states is tolerable Patient Tobacco Use Status: Current everyday Tobacco user Tobacco use type: Cigarette Cigarettes Per Day: 6 Years Smoked: 35 e-Cigarette/Vaping Use: Never Used Second Hand Smoke Exposure: No service: No Current occupational status: employed Current occupation: [employer]- Cognitive needs: No Hearing needs: No Vision needs: No Questionnaire Thrive Questionnaire Date Thrive assessed: 05/01/22 BARB-7 AMB Questionnaire BARB-7 Date BARB - 7 assessed: 05/01/22 Source: Developed by Drs. Golden Dunn, Shabnam Cortez, Sam Hernandes and colleagues, with an educational kieran from [employer]. Review of Systems Const Reports as per HPI Physical exam (Primary Care) Vital Signs: Last Vital Signs Pulse 75 03/26/23 15:30 BP 142/100 H 03/26/23 16:19 Pulse Ox 100 03/26/23 15:30 Oxygen Delivery Method Room Air 03/26/23 15:30 BMI result Body Mass Index 39.1 Tobacco/Smoking Status: Tobacco use Status Tobacco use date assessed 12/28/22 03/26/23 15:30 Patient Tobacco Use Status Current everyday Tobacco 03/26/23 15:30 Tobacco use type Cigarette 03/26/23 15:30 e-Cigarette/Vaping Use Never Used 03/26/23 15:30 Thrive Assessment: Date of Thrive Assessment Date Thrive assessed 05/01/22 03/26/23 15:30 Const General: cooperative Nutritional Appearance: obese Orientation/consciousness: patient oriented x3 Resp Effort & Inspection: normal respiratory effort Auscultation: clear to auscultation bilaterally Cardio Rate: regular rate Rhythm: regular rhythm Heart sounds: S1 normal heart sound present and S2 normal heart sound present Neuro General: patient oriented x3 Extrem Right lower extremity: no edema Left lower extremity: no edema Psych Appearance: grossly normal Mental Status: mental status grossly normal Speech and movement: Normal speech and movement present Affect: normal affect Attitude: cooperative Thought process: Normal thought process present Thought content: Normal thought content present Insight: Good insight present (Psych) Judgement: Good judgement present (Psych) Assessment and Plan Assessment & Plan (1) HTN (hypertension): Code(s): I10 - Essential (primary) hypertension Plan: increasing irbesartan from 75mg to 150 Plan The patient agreed to the use of a medical services manager for this encounter. Scribed for SHEFALI Linares by Diamante Bird medical services manager, on 03/26/2023 at 15:45 EST. Orders: Orders Comprehensive Met. Panel Today I10 - Essential (primary) hypertension Medications: Changed From irbesartan 75 mg PO DAILY 90 tabs 1RF To irbesartan 150 mg PO DAILY 90 tabs 1RF Coding Level of Care Code Est Pt Level 3 (97034) Diagnoses HTN (hypertension) I10
[2023-03-26 15:30] VITALS: BP 150/100; PULSE 75; O2SAT 100; BMI 39.1
[2023-03-26 16:19] VITALS: BP 142/100
== END 2023-03-26 16:23 | disposition home or self-care (01) ==
PROVIDERS: PCP Nurse Practitioner Family; Visit Provider Nurse Practitioner Family
DX: I10 Essential (primary) hypertension (principal)
CPT/HCPCS: 99213

== ENCOUNTER 2023-06-18 08:22 | Outpatient (AMB) | payer OTHER, SELFPAY ==
--- NOTE | 2023-06-18 08:28 | MHC.OFFVIS ---
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 disolving stitches Allergy (Unknown, Uncoded 06/18/23 08:31) skin burn/ulceration adhesives Allergy (Unknown, Uncoded 06/18/23 08:31) skin burning, blisters Is last menstrual period known: No Post menopausal: Yes HPI HPI Comments History of Present Illness Details Presenting for annual exam. No complaints. Last Pap/HPV was negative in 04/29 Last Mammogram was BI-RADS 1 in 06/29 Last colonoscopy was in 04/29, the recommendation was to repeat in 10 years [facility] Medical History Skin lesion of neck Mucous cyst of toe Cyst, dermoid, face HTN (hypertension) Hyperplastic colon polyp (~2020) Obesity Smoker History of back pain Hx of seasonal allergies Hx of iron deficiency anemia Depression Anxiety High cholesterol Migraines Surgical History Hx of bilateral oophorectomy History of colonoscopy (~2020) History of tubal ligation (~2006) History of gastric bypass (~2016) History of surgical removal of skin lesion (~2021) History of lymph node biopsy (~2017) History of blepharoplasty (~2014) History of colposcopy (~2008) History of tonsillectomy and adenoidectomy (~1985) History of surgical removal of ganglion cyst (~2011) History of foot surgery (~2014) History of bunionectomy of right great toe (~2011) History of nasal surgery (~2008) Hx of endoscopy Family History Father Hx of diabetes insipidus Mother Hx of diabetes insipidus Maternal Aunt Breast cancer Son No problems noted. Daughter No problems noted. Social History Household Members: None Housing: House Are you a primary health care facilities inspector to a significant other at home: No Do you presently have visiting nurse or other home services: No Alcohol intake: never Comment: Patient states is tolerable Patient Tobacco Use Status: Current everyday Tobacco user Tobacco use type: Cigarette Cigarettes Per Day: 6 Years Smoked: 35 e-Cigarette/Vaping Use: Never Used Second Hand Smoke Exposure: No service: No Current occupational status: employed Current occupation: [employer]- Cognitive needs: No Hearing needs: No Vision needs: No Female Reproductive History Menstrual Age of Menarche: 10 control method: permanent sterilization Total pregnancies: 1 Full term: 1 Number of Living Children: 1 Multiple births: 1 Date of last pap smear: 04/15/20 History of abnormal pap smear: Yes (2008 GELA 2) Date of Mammogram: 06/30/22 Review of Systems Const All systems reviewed & are unremarkable except as noted in HPI and below Card Reports as per HPI Resp Reports as per HPI GI Reports as per HPI and Reports no additional complaints Reports as per HPI Physical Exam Vital Signs: Last Vital Signs BP 154/94 H 06/18/23 08:30 BMI result Body Mass Index 39.7 Const General: cooperative, healthy appearing and comfortable Chest Chest palpation & inspection: normal inspection of the chest and normal palpation of entire chest wall Breast/axilla inspection: normal inspection of the breasts and normal inspection of the axillae Breast/axilla palpation: normal palpation of the breasts, normal palpation of the axillae and no axillary lymphadenopathy Resp Effort & Inspection: normal respiratory effort Auscultation: clear to auscultation bilaterally Percussion: percussion normal Cardio Palpation: normal PMI Rate: regular rate Rhythm: regular rhythm Heart sounds: no murmurs and no rubs Peripheral pulses: Peripheral pulses 2+ throughout GI Inspection: Yes normal to inspection Palpation (GI): Soft to palpation, nontender, no guarding, not rigid and No hepatosplenomegaly present Percussion: Yes normal to percussion Auscultation: normal bowel sounds Rectal Exam - Female: deferred General: Yes bladder normal to palpation External Female Exam: No lesion Speculum Exam - Vagina: normal appearance of the vagina, normal palpation, normal vaginal discharge and not erythematous Speculum Exam - Cervix: normal appearance of the cervix and normal palpation Bimanual exam- vagina & uterus: normal bimanual exam, normal palpation, uterine size normal, bladder normal to palpation, consistency normal and normal palpation Bimanual Exam- Adnexa, other: Other (Surgically absent bilaterally) Assessment & Plan Assessment & Plan (1) Well woman exam: Code(s): Z01.419 - Encounter for gynecological examination (general) (routine) without abnormal findings Plan: Co testing not indicated this year. Counseled the patient about the recommended dietary allowance of 1200 mg of Calcium & 600 IU of vitamin D. Mammogram scheduled in 06/30. The patient was instructed to perform monthly self-breast exams and schedule annual exam in a year. All questions answered and the patient verbalized understanding. Coding Level of Care Code Est Pt Prev Care 40-64y(64528) Diagnoses Well woman exam Z01.419
[2023-06-18 08:30] VITALS: BP 154/94; BMI 39.7
== END 2023-06-18 08:48 | disposition home or self-care (01) ==
LOC: HO.HWS 08:22
PROVIDERS: PCP Nurse Practitioner Family; Visit Provider Obstetrics & Gynecology
DX: Z01.419 Encounter for gynecological examination (general) (routine) without abnormal findings (principal)
CPT/HCPCS: 99396

== ENCOUNTER → 2023-06-18 08:22 | Outpatient (BNVA) | payer OTHER, SELFPAY | PROVIDERS: PCP Nurse Practitioner Family; Visit Provider Obstetrics & Gynecology ==

== ENCOUNTER 2023-06-29 12:51 | Outpatient (REF) | payer OTHER, SELFPAY ==
[2023-06-29 14:05] LABS: Alanine Aminotransferase 13 U/L (0-31); Albumin Level 4.2 g/dL (3.5-5.0); Alkaline Phosphatase 74 U/L (39-117); Anion Gap 11 (12-20); Aspartate Amino Transferase 20 U/L (5-31); Bilirubin Total 0.3 mg/dL (0.0-1.0); Blood Urea Nitrogen 13 mg/dL (9-16); Calcium 9.5 mg/dL (8.4-10.2); Carbon Dioxide 29 mmol/L (22-29); Chloride 106 mmol/L (96-108); Estimated Glomerular Filt Rate > 60; Glucose Random 84 mg/dL (60-115); Potassium 4.1 mmol/L (3.3-5.1); Sodium 142 mmol/L (135-145); Total Protein 6.9 g/dL (6.5-8.0)
== END 2023-06-29 12:52 | disposition home or self-care (01) ==
LOC: HO.LAB 12:51
PROVIDERS: PCP Nurse Practitioner Family; Visit Provider Nurse Practitioner Family
DX: I10 Essential (primary) hypertension (principal)
CPT/HCPCS: 36415; 80053

== ENCOUNTER → 2023-07-03 16:00 | Outpatient (BNV) | payer OTHER, SELFPAY | PROVIDERS: PCP Nurse Practitioner Family; Referring Provider Obstetrics & Gynecology; Visit Provider Radiology Diagnostic Radiology | DX: Z12.31 Encounter for screening mammogram for malignant neoplasm of breast (principal) | CPT/HCPCS: 77063; 77067 ==

== ENCOUNTER 2023-07-03 16:03 | Outpatient (REF) | payer OTHER, SELFPAY | END 2023-07-03 16:04 | disposition home or self-care (01) | LOC: HO.MAMMO 16:03 | PROVIDERS: PCP Nurse Practitioner Family; Referring Provider Obstetrics & Gynecology; Visit Provider Nurse Practitioner Family | DX: Z12.31 Encounter for screening mammogram for malignant neoplasm of breast (principal) | CPT/HCPCS: 77063; 77067 ==

== ENCOUNTER 2023-08-30 13:10 | Outpatient (REF) | payer OTHER, SELFPAY ==
--- NOTE | ~2023-08-30 | XR_ITS ---
EXAMINATION: XR SHOULDER, RIGHT CLINICAL INFORMATION: Pain in right shoulder COMPARISON: None available. TECHNIQUE: AP external rotation, Grashey, scapular Y, and axillary views of the right shoulder. FINDINGS: The bones are intact. No fracture. Glenohumeral and acromioclavicular alignment is anatomic with normal glenohumeral joint space. There is moderate degenerative change of the acromioclavicular joint. No abnormal soft tissue calcifications. XR/XR shoulder RT min 2V IMPRESSION: Moderate degenerative change of the acromioclavicular joint.
== END 2023-08-30 13:11 | disposition home or self-care (01) ==
LOC: HO.XRAY 13:10
PROVIDERS: PCP Nurse Practitioner Family; Visit Provider Nurse Practitioner Family
DX: M25.511 Pain in right shoulder (principal)
CPT/HCPCS: 73030

== ENCOUNTER 2023-08-31 08:28 | Outpatient (REF) | payer OTHER, SELFPAY ==
[2023-08-31 08:59] LABS: MANUAL DIFF FLAG NO
[2023-08-31 09:15] LABS: Basophils Absolute Auto 0.1 X10*3/uL (0.0-0.2); Eosinophils Absolute Auto 0.3 X10*3/uL (0.0-0.4); Eosinophils Percent Auto 3.4 % (0-4); Hematocrit 40.9 % (37.0-47.0); Hemoglobin 13.5 g/dl (12.0-16.0); Imm Gran Abs Auto 0.03 X10*3/uL (0.00-0.03); Imm Gran Pct Auto 0.4 % (0.0-0.4); Lymphocytes Percent Auto 25.4 % (20-40); Mean Corpuscular Hemoglobin 28.4 pg (27.0-33.0); Mean Corpuscular Volume 86.1 fL (80.0-98.0); Mean Platelet Volume 9.1 fL (9.4-12.3); Monocytes Absolute Auto 0.6 X10*3/uL (0.1-1.2); Monocytes Percent Auto 6.9 % (2-11); Neutrophils Percent Auto 62.9 % (45-73); Platelet Count 322 X10*3/uL (160-400); Red Blood Count 4.75 X10*6/uL (4.20-5.50); Red Cell Distribution Width 13.3 % (11.0-16.0)
[2023-08-31 09:53] LABS: Alanine Aminotransferase 15 U/L (0-31); Albumin Level 4.2 g/dL (3.5-5.0); Alkaline Phosphatase 74 U/L (39-117); Anion Gap 13 (12-20); Aspartate Amino Transferase 20 U/L (5-31); Bilirubin Total 0.5 mg/dL (0.0-1.0); Blood Urea Nitrogen 11 mg/dL (9-16); C Reactive Protein 0.33 mg/dL (< or = 0.50); Calcium 9.4 mg/dL (8.4-10.2); Carbon Dioxide 25 mmol/L (22-29); Chloride 106 mmol/L (96-108); Cholesterol 182 mg/dL (<200); Estimated Glomerular Filt Rate > 60; Glucose Fasting 96 mg/dL (60-99); HDL Cholesterol 46 mg/dL (>40); Iron 88 mcg/dL (30-160); LDL Cholesterol Calculated 107 mg/dL (<100); Percent Iron Saturation 26 % (15-50); Sodium 140 mmol/L (135-145); Total Iron Binding Capacity 344 mcg/dL (228-428); Total Protein 6.9 g/dL (6.5-8.0); Triglycerides 148 mg/dL (<150); Unsaturated Iron Binding 256 ug/dL
[2023-08-31 09:55] LABS: Erythrocyte Sedimentation Rate 10 MM/HR (0-20)
[2023-08-31 10:12] LABS: Ferritin 9 ng/mL (10-250); TSH reflex Free T4 0.91 uIU/mL (0.32-4.0); Vitamin D 25-OH Total 37.9 ng/mL (>30)
[2023-08-31 10:41] LABS: Rheumatoid Factor < 13.0 IU/mL (<15.0)
[2023-08-31 11:23] LABS: Folate 13.7 ng/mL (> or = 4.0); Vitamin B12 915 pg/mL (200-900)
[2023-08-31 14:54] LABS: Appearance Urine Clear; Color Urine Yellow; Glucose Urine UA Negative (Negative); Leukocyte Esterase Urine Negative (Negative); Nitrite Urine Negative (Negative); PH 6.5 (5.0-9.0); Specific Gravity - Urine 1.015 (1.005-1.025); Urine Blood Negative (Negative); Urine Ketones Negative (Negative); Urine Protein Negative (Neg-Trace)
[2023-09-01 14:03] LABS: A. Phagocytphilium DNA,RT-PCR NOT DETECTED (NOT DETECTED); Babesia Microti DNA, RT-PCR NOT DETECTED (NOT DETECTED); Borrelia Miyamotoi,DNA RT-PCR NOT DETECTED (NOT DETECTED); E.Chaffeensis DNA RT-PCR NOT DETECTED (NOT DETECTED); Lyme(Borrelia ssp)DNA RT-PCR NOT DETECTED (NOT DETECTED)
[2023-09-04 17:39] LABS: Antibody to SS-A Antigen <1.0 NEG AI (<1.0 NEG); Antibody to SS-B Antigen <1.0 NEG AI (<1.0 NEG)
[2023-09-04 18:42] LABS: Cyclic Citrullinated Peptide <16 UNITS
[2023-09-06 15:12] LABS: Anti Nuclear Antibody Screen POSITIVE (NEGATIVE)
== END 2023-08-31 08:29 | disposition home or self-care (01) ==
LOC: HO.LAB 08:28
PROVIDERS: PCP Nurse Practitioner Family; Visit Provider Nurse Practitioner Family
DX: Z00.00 Encounter for general adult medical examination without abnormal findings (principal); Z13.6 Encounter for screening for cardiovascular disorders; E53.8 Deficiency of other specified B group vitamins; R53.83 Other fatigue; D64.9 Anemia, unspecified
CPT/HCPCS: 36415; 80053; 80061; 81003; 82306; 82607; 82728; 82746; 83540; 84443; 85025; 85652; 86038; 86039; 86140; 86200; 86235; 86431; 87468; 87469; 87478; 87484; 87798

== ENCOUNTER 2023-09-05 15:08 | Outpatient (AMB) | payer OTHER, SELFPAY ==
[2023-09-05 15:09] VITALS: BP 160/98; PULSE 86; O2SAT 98; BMI 40.4
--- NOTE | 2023-09-05 15:09 | MHC.PC.OV ---
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 disolving stitches Allergy (Unknown, Uncoded 09/05/23 15:09) skin burn/ulceration adhesives Allergy (Unknown, Uncoded 09/05/23 15:09) skin burning, blisters Medication List - Last Reconciled 09/05/23 by DARON Davidson-CLEM amitriptyline 25 mg PO DAILY 90 days calcium carbonate-vitamin D3 600 mg-10 mcg (400 unit) (Calcium with Vitamin D) 1 tab PO BID 90 days citalopram 10 mg PO DAILY 90 days cyanocobalamin (vitamin B-12) 1,000 mcg PO .weekly 90 days [EyePromise Restore ] fexofenadine-pseudoephedrine 60-120 mg ER (Vanessa-D 12 Hour) 1 tab PO Q12H PRN ibuprofen 800 mg PO Q8H PRN irbesartan 300 mg PO DAILY lansoprazole (Prevacid 24Hr) 15 mg PO DAILY metoprolol succinate ER 100 mg PO DAILY 90 days multivitamin 1 tab PO DAILY oxycodone-acetaminophen 5-325 mg (Percocet) 1 tab PO ONCE PRN 7 days Saccharomyces boulardii (Daily Probiotic (S. boulardii)) 150 mg PO BID simvastatin 40 mg PO BEDTIME 90 days sumatriptan succinate 100 mg PO BID 15 days thiamine HCl (vitamin B1) (Vitamin B-1) 100 mg PO DAILY Tobacco use date assessed: 09/05/23 Dental Screening Dental Screen Date: 09/05/23 Did you have a dental visit in the last 12 months?: Yes Did you have a dental problem in the last 6 months where you did not have access to dental care?: No Was dental information given to patient?: Patient has dentist HPI Annual PE HPI Details Pt is here for a PE. Labs were already performed. Colon screen is up to date. Mammo is up to date. 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 Pt's ferritin was low. She has seen hematology in the past and had an iron infusion. She does report fatigue and has a pale complexion. Will reach out to hematology for possible repeat iron infusion. Pt's blood pressure is elevated today, managed with irbesartan 300mg and metoprolol 50mg. Will increase metoprolol to 100mg. Will have pt monitor her blood pressure outside of the office. Denies chest pain, shortness of breath, headache, dizziness, and blurred vision. Pt is a smoker, refuses low-dose lung CTs, currently. Pt c/o ongoing right shoulder pain. XR showed moderate degenerative change of the acromioclavicular joint. Will refer to PT. [facility] Medical History Skin lesion of neck Mucous cyst of toe Cyst, dermoid, face HTN (hypertension) Hyperplastic colon polyp (~2020) Obesity Smoker History of back pain Hx of seasonal allergies Hx of iron deficiency anemia Depression Anxiety High cholesterol Migraines Surgical History Hx of bilateral oophorectomy History of colonoscopy (~2020) History of tubal ligation (~2006) History of gastric bypass (~2016) History of surgical removal of skin lesion (~2021) History of lymph node biopsy (~2017) History of blepharoplasty (~2014) History of colposcopy (~2008) History of tonsillectomy and adenoidectomy (~1985) History of surgical removal of ganglion cyst (~2011) History of foot surgery (~2014) History of bunionectomy of right great toe (~2011) History of nasal surgery (~2008) Hx of endoscopy Family History Father Hx of diabetes insipidus Mother Hx of diabetes insipidus Maternal Aunt Breast cancer Son No problems noted. Daughter No problems noted. Social History Household Members: None Housing: House Are you a primary healthcare receptionist to a significant other at home: No Do you presently have visiting nurse or other home services: No Alcohol intake: never Comment: Patient states is tolerable Patient Tobacco Use Status: Current everyday Tobacco user Tobacco use type: Cigarette Cigarettes Per Day: 6 Years Smoked: 35 e-Cigarette/Vaping Use: Never Used Second Hand Smoke Exposure: No service: No Current occupational status: employed Current occupation: [employer]- Cognitive needs: No Hearing needs: No Vision needs: No Female Reproductive History Menstrual Age of Menarche: 10 Questionnaire PHQ-9 Over the last 2 weeks, how often have you been bothered by any of the following problems? 1. Little interest or pleasure in doing things: several days 2. Feeling down, depressed, or hopeless: several days 3. Trouble falling or staying asleep, or sleeping too much: several days 4. Feeling tired or having little energy: not at all 5. Poor appetite or overeating: several days 6. Feeling bad about yourself - or that you are a failure or have let yourself or your family down: not at all 7. Trouble concentrating on things, such as reading the newspaper or watching television: not at all 8. Moving or speaking so slowly that other people could have noticed. Or the opposite - being so fidgety or restless that you have been moving around a lot more than usual: not at all 9. Thoughts that you would be better off or of hurting yourself in some way: not at all Total score: 4 Depression Screening Interpretation: Negative Depression Screening Done: Yes 66540 - PHQ-9 Billing: Yes Source: Developed by Drs. Golden Dunn, Shabnam Cortez, Sam Hernandes and colleagues, with an educational kieran from [employer]. Thrive Questionnaire Date Thrive assessed: 05/29/24 I am a: Patient What is your living situation today?: I have a steady place to live Within the past 12 months, did the food you bought not last and you didn't have the money to get more?: Never true Within the past 12 months, did you worry whether your food would run out before you got money to buy more?: Never true Do you have trouble paying for medicines?: No Do you have trouble getting transportation to medical appointments?: No Do you have trouble paying your heating and electricity bill?: No Do you have trouble taking care of your child, family member or friend?: No Do you have trouble with day-to-day activities such as bathing, preparing meals, shopping, managing finances, etc.?: No Are you currently unemployed and looking for a job?: No Are you interested in more education?: No Please select the resources that you would like help with: None THRIVE Score: 0 AUDIT C Alcohol Use Questionnaire (AUDIT-C) 1. How often do you have a drink containing alcohol?: Monthly or less 2. How many drinks containing alcohol do you have on a typical day when you are drinking?: 1 or 2 3. How often do you have six or more drinks on one occasion?: Never Total Score: 1 BARB-7 AMB Questionnaire BARB-7 Date BARB - 7 assessed: 09/05/23 Feeling nervous, anxious, or on edge: 0 = Not at all Not being able to stop or control worryin = Not at all Worrying too much about different things: 0 = Not at all Trouble relaxin = Not at all Being so restless that it is hard to sit still: 0 = Not at all Becoming easily annoyed or irritable: 0 = Not at all Feeling afraid as if something awful might happen: 0 = Not at all Total BARB-7 score (0-4 normal; 5-9 mild; 10-14 moderate; 15-21 severe): 0 Source: Developed by Drs. Golden Dunn, Shabnam Cortez, Sam Hernandes and colleagues, with an educational kieran from [employer]. Review of Systems Const Denies chills and Denies fever(s) Eyes Denies blurry vision ENT Denies vertigo, Denies dizziness and Denies sore throat Card Denies chest pain at rest, Denies chest pain with activity, Denies diaphoresis, Denies dyspnea and Denies dyspnea on exertion Resp Denies cough, Denies dyspnea, Denies dyspnea on exertion and Denies wheezing GI Denies abdominal pain, Denies melena, Denies hematochezia, Denies constipation, Denies diarrhea and Denies loose stools Denies hematuria Musc Denies numbness and Denies tingling Skin/Breast Denies lesions Neuro Denies vertigo, Denies dizziness, Denies numbness and Denies tingling Psych Denies anxiety, Denies depression, Denies homicidal ideation, Denies suicidal ideation and Denies other (substance abuse) Aller/Immun Denies wheezing Physical exam (Primary Care) Vital Signs: Last Vital Signs Pulse 86 09/05/23 15:09 BP 160/90 H 09/05/23 15:58 Pulse Ox 98 09/05/23 15:09 Oxygen Delivery Method Room Air 09/05/23 15:09 BMI result Body Mass Index 40.4 Tobacco/Smoking Status: Tobacco use Status Tobacco use date assessed 09/05/23 09/05/23 15:16 Patient Tobacco Use Status Current everyday Tobacco 09/05/23 15:16 Tobacco use type Cigarette 09/05/23 15:16 e-Cigarette/Vaping Use Never Used 09/05/23 15:16 PHQ-9: PHQ-9 Score PHQ-9: Total score 4 09/05/23 16:00 Depression Screening Interpretation: Negative Thrive Assessment: Date of Thrive Assessment Date Thrive assessed 09/05/23 09/05/23 15:16 Const Other: pale complexion General: cooperative Nutritional Appearance: obese Orientation/consciousness: patient oriented x3 HENMT Head: Yes normal to inspection, Yes normocephalic and Yes atraumatic Ears: TM's normal bilaterally Eyes General: appearance normal, both eyes and all related structures Alignment and Position: alignment normal and position normal Neck Neck: Yes normal visual inspection and Yes no lymphadenopathy Thyroid: Thyroid normal Resp Effort & Inspection: normal respiratory effort Auscultation: clear to auscultation bilaterally Cardio Rate: regular rate Rhythm: regular rhythm Heart sounds: S1 normal heart sound present, S2 normal heart sound present and no murmurs GI Palpation (GI): Soft to palpation and nontender Auscultation: normal bowel sounds Skin Rashes: no rashes Neuro General: patient oriented x3, moves all extremities, no focal motor deficits and deep tendon reflexes 2+ bilaterally Romberg Test: Negative Extrem Other: with anterior and lateral RUE raises tenderness noted especially to AC joint region Psych Appearance: grossly normal Mental Status: mental status grossly normal Speech and movement: Normal speech and movement present Affect: normal affect Attitude: cooperative Thought process: Normal thought process present Thought content: Normal thought content present Insight: Good insight present (Psych) Judgement: Good judgement present (Psych) Assessment and Plan Assessment & Plan (1) Right shoulder pain: Code(s): M25.511 - Pain in right shoulder Plan: referring to PT (2) Encounter for routine adult physical exam with abnormal findings: Code(s): Z00.01 - Encounter for general adult medical examination with abnormal findings Plan: labs already performed (3) HTN (hypertension): Code(s): I10 - Essential (primary) hypertension Plan: increased BB, pt will send me values via tigertext Plan The patient agreed to the use of a medical recruiter for this encounter. Scribed for SHEFALI Linares by Diamante Bird medical recruiter, on 09/05/2023 at 15:30 EST. Orders: Orders PT Evaluation and Treatment Today M25.511 - Pain in right shoulder Medications: Changed From metoprolol succinate ER 50 mg PO DAILY 90 days 90 tabs 1RF To metoprolol succinate ER 100 mg PO DAILY 90 days 90 tabs 1RF Coding Level of Care Code Est Pt Prev Care 40-64y(77140) Diagnoses Right shoulder pain M25.511 Encounter for routine adult physical exam with abnormal findings Z00.01 HTN (hypertension) I10
[2023-09-05 15:58] VITALS: BP 160/90
== END 2023-09-05 16:09 | disposition home or self-care (01) ==
PROVIDERS: PCP Nurse Practitioner Family; Visit Provider Nurse Practitioner Family
DX: Z00.00 Encounter for general adult medical examination without abnormal findings (principal); M25.511 Pain in right shoulder; I10 Essential (primary) hypertension
CPT/HCPCS: 99396

== ENCOUNTER 2023-09-13 13:16 | Outpatient (REF) | payer OTHER, SELFPAY ==
[2023-09-13 15:09] LABS: Appearance Urine Clear; Color Urine Dark Yellow; Glucose Urine UA Negative (Negative); Leukocyte Esterase Urine Negative (Negative); Nitrite Urine Negative (Negative); Specific Gravity - Urine 1.025 (1.005-1.025); Urine Blood Negative (Negative); Urine Ketones Trace mg/dL (Negative); Urine Protein Negative (Neg-Trace)
[2023-09-13 15:16] LABS: Bacteria Urine Trace (None Seen); Hyaline Casts Urine 0-2 /LPF (0-2); RBC Urine 0-2 /HPF (0-2); Squamous Epithelial Cell Urine 0-2 /HPF (0-2); WBC Urine 0-5 /HPF (0-5)
[2023-09-13 15:27] LABS: Creatinine Urine 160.34 mg/dL; Total Protein Urine Random < 7 mg/dL (<12)
[2023-09-14 21:14] LABS: Complement C3 57 mg/dL (83-193)
[2023-09-17 17:07] LABS: Anti DNA DS Antibody <1 IU/mL; SM/Ribonucleoprotein Ab 2.0 POS AI (<1.0 NEG); Smith Protein <1.0 NEG AI (<1.0 NEG)
[2023-09-17 17:43] LABS: Thyroglobulin Antibodies <1 IU/mL (< or = 1); Thyroid Peroxidase Antibodies <1 IU/mL (<9)
[2023-09-21 13:38] LABS: DNAds, Crithidia Antibody Negative (Negative)
== END 2023-09-13 13:17 | disposition home or self-care (01) ==
LOC: HO.LAB 13:16
PROVIDERS: PCP Nurse Practitioner Family; Visit Provider Student in an Organized Health Care Education/Training Program
DX: M32.9 Systemic lupus erythematosus, unspecified (principal); E07.9 Disorder of thyroid, unspecified
CPT/HCPCS: 36415; 81001; 82570; 84156; 86160; 86225; 86235; 86255; 86376; 86800

== ENCOUNTER 2023-09-13 13:16 | Outpatient (AMB) | payer OTHER, SELFPAY ==
[2023-09-13 13:22] VITALS: BP 134/72; PULSE 79; O2SAT 96; BMI 39.9
--- NOTE | 2023-09-13 13:22 | A.OFFVIS_ITS ---
Vital Signs 09/13/23 13:22 Height 5 ft 3 in Weight 225 lb BMI 39.9 BP 134/72 Blood Pressure Location Rt brachial Position Sitting Pulse 79 Pulse Source Pulse Oximeter Pulse Oximetry (%) 96 Oxygen Delivery Method Room Air Intake Visit Reasons: abnormal lab/ext 5703/CM Intake Note: New patient presents today for consult, internally referred by Cheo Lowry for abnormal lab. Possible FH of autoimmune disorders. Paternal aunt Lupus Allergies mold Allergy (Mild, Verified 09/13/23 13:36) SNEEZING prednisone [Prednisone] Allergy (Mild, Verified 09/13/23 13:36) NAUSEA & VOMITING losartan Allergy (Unknown, Verified 09/13/23 13:36) unknown clindamycin [CLINDAMYCIN] Adverse Reaction (Severe, Verified 09/13/23 13:36) C.DIFFICILE procaine [From Novocain] Adverse Reaction (Severe, Verified 09/13/23 13:36) NOVOCAIN WITH EPI CUSES PALPITATION erythromycin base [Erythromycin Base] Adverse Reaction (Mild, Verified 09/13/23 13:36) NAUSEA & VOMITING ? disolving stitches Allergy (Unknown, Uncoded 09/13/23 13:36) skin burn/ulceration adhesives Allergy (Unknown, Uncoded 09/13/23 13:36) skin burning, blisters Medication List - Last Reconciled 09/13/23 by Merlin Raymundo MD amitriptyline 25 mg PO DAILY 90 days ascorbic acid (vitamin C) (Vitamin C) 250 mg PO DAILY calcium carbonate-vitamin D3 600 mg-10 mcg (400 unit) (Calcium with Vitamin D) 1 tab PO BID 90 days citalopram 10 mg PO DAILY 90 days cyanocobalamin (vitamin B-12) 1,000 mcg PO .weekly 90 days [EyePromise Restore ] ferrous sulfate 325 mg PO DAILY fexofenadine-pseudoephedrine 60-120 mg ER (Vanessa-D 12 Hour) 1 tab PO Q12H PRN ibuprofen 800 mg PO Q8H PRN irbesartan 300 mg PO DAILY lansoprazole (Prevacid 24Hr) 15 mg PO DAILY metoprolol succinate ER 100 mg PO DAILY 90 days multivitamin 1 tab PO DAILY oxycodone-acetaminophen 5-325 mg (Percocet) 1 tab PO ONCE PRN 7 days Saccharomyces boulardii (Daily Probiotic (S. boulardii)) 150 mg PO BID simvastatin 40 mg PO BEDTIME 90 days sumatriptan succinate 100 mg PO BID 15 days thiamine HCl (vitamin B1) (Vitamin B-1) 100 mg PO DAILY HPI Comments Details: This is a 53-year-old female who presents for evaluation of a positive KEL. This was ordered in the context of generalized fatigue, weight gain. She has been having right shoulder pain for some years now. She believes 8 started a fter she fell from a ladder and injured her right shoulder. She has known moderate right shoulder osteoarthritis. 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 She was evaluated by multiple rheumatologists. Testing for rheumatoid arthritis was negative. She was never diagnosed with an underlying autoimmune rheumatic disease. Patient sleep study and it was negative for ELVIN. Patient believes she has a great aunt with lupus but can not confirm it. Otherwise she is unaware of any family history of autoimmune rheumatic disease. She denies any DVT/PE. One , she has twins. No abortions or miscarriages. Denies any skin rashes [facility]LY [facility] Medical History Schamberg disease Skin lesion of neck Mucous cyst of toe Cyst, dermoid, face HTN (hypertension) Hyperplastic colon polyp (~2020) Obesity Smoker History of back pain Hx of seasonal allergies Hx of iron deficiency anemia Depression Anxiety High cholesterol Migraines Surgical History Hx of bilateral oophorectomy History of colonoscopy (~2020) History of tubal ligation (~2006) History of gastric bypass (~2016) History of surgical removal of skin lesion (~2021) History of lymph node biopsy (~2017) History of blepharoplasty (~2014) History of colposcopy (~2008) History of tonsillectomy and adenoidectomy (~1985) History of surgical removal of ganglion cyst (~2011) History of foot surgery (~2014) History of bunionectomy of right great toe (~2011) History of nasal surgery (~2008) Hx of endoscopy Family History Father Hx of diabetes insipidus Mother Hx of diabetes insipidus Maternal Aunt Breast cancer Son No problems noted. Daughter No problems noted. Social History Household Members: None Housing: House Are you a primary summer child caregiver to a significant other at home: No Do you presently have visiting nurse or other home services: No Alcohol intake: never Comment: Patient states is tolerable Patient Tobacco Use Status: Current everyday Tobacco user Tobacco use type: Cigarette Cigarettes Per Day: 6 Years Smoked: 35 e-Cigarette/Vaping Use: Never Used Second Hand Smoke Exposure: No service: No Current occupational status: employed Current occupation: [employer] Cognitive needs: No Hearing needs: No Vision needs: No Female Reproductive History Menstrual Age of Menarche: 10 Total pregnancies: 1 Number of Living Children: 2 Review of Systems Const Reports fatigue, Reports headache(s), Reports weakness and Reports weight gain Eyes Reports dry eyes ENT Reports dry mouth and Reports headache(s) Card Reports dyspnea on exertion Resp Reports dyspnea on exertion Musc Reports arthralgias, Reports joint swelling and Reports stiffness Skin/Breast Reports rash Neuro Reports headache(s) and Reports weakness Psych Reports abnormal sleep pattern and Reports depression Endo Reports fatigue Physical Exam Vital Signs: Last Vital Signs Pulse 79 09/13/23 13:22 BP 134/72 09/13/23 13:22 Pulse Ox 96 09/13/23 13:22 Oxygen Delivery Method Room Air 09/13/23 13:22 BMI result Body Mass Index 39.9 Const General: cooperative, healthy appearing and comfortable Nutritional Appearance: obese morbidly obese Orientation/consciousness: patient oriented x3 Limitations: no limitations HEENT Head: Yes normocephalic and Yes atraumatic Mouth: moist mucous membranes Resp Effort & Inspection: normal respiratory effort and able to speak in complete sentences Auscultation: clear to auscultation bilaterally Cardio Rate: regular rate Rhythm: regular rhythm Neuro General: patient oriented x3 Extrem Other: Mild osteoarthritic changes of both hands with no active synovitis Normal nailfold capillaroscopy Normal range of motion of hands, wrists, elbows and shoulders without pain no knee pain with full flexion-extension Negative MTP squeeze test bilaterally Assessment & Plan Assessment & Plan (1) Positive KEL (antinuclear antibody): Code(s): R76.8 - Other specified abnormal immunological findings in serum Category: Medical Plan: This is a 53-year-old female who presents for evaluation of a positive KEL. This is in the context of fatigue and diffuse pain. She has history of biopsy- proven rheumatoid nodule on her right foot more than a decade ago. She was evaluated by Rheumatology and testing for rheumatoid arthritis was negative. Will order comprehensive serology to screen for underlying autoimmune rheumatic disease. Follow-up in 4-6 weeks (2) Low ferritin: Code(s): R79.0 - Abnormal level of blood mineral Category: Medical Plan: History of gastric bypass, History of iron-deficiency anemia requiring iron infusions in the past. Most recent labs show low ferritin but hemoglobin with a normal with no microcytosis, iron studies is otherwise nondiagnostic. I do not see any evidence of an underlying autoimmune rheumatic disease that would preclude iron infusions. Iron infusions can be administered and her symptoms of fatigue re-evaluated. Plan I spent 47 minutes reviewing patient's chart, evaluating patient, ordering diagnostic workup, counseling patient and documenting in the chart Orders: Orders Complement C3 Today M32.9 - Systemic lupus erythematosus, unspecified DNA Double Stranded-Crithidia Today M32.9 - Systemic lupus erythematosus, unspecified Protein Creatinine Ratio, Ur Today M32.9 - Systemic lupus erythematosus, unspecified Thyroglobulin Antibodies Today E07.9 - Disorder of thyroid, unspecified Thyroid Peroxidase Antibodies Today E07.9 - Disorder of thyroid, unspecified Anti Extractable Nuclear Ag Today M32.9 - Systemic lupus erythematosus, unspecified Anti DNA DS Antibody Today M32.9 - Systemic lupus erythematosus, unspecified Complement C4 Today M32.9 - Systemic lupus erythematosus, unspecified UA w Microscopic Today M32.9 - Systemic lupus erythematosus, unspecified Coding Level of Care Code New Pt Level 4 (31085) Diagnoses Positive KEL (antinuclear antibody) R76.8 Low ferritin R79.0
== END 2023-09-13 14:04 | disposition home or self-care (01) ==
PROVIDERS: PCP Nurse Practitioner Family; Visit Provider Student in an Organized Health Care Education/Training Program
DX: R76.8 Other specified abnormal immunological findings in serum (principal); R79.0 Abnormal level of blood mineral
CPT/HCPCS: 99204

== ENCOUNTER 2023-10-22 12:26 | Outpatient (AMB) | payer OTHER, SELFPAY ==
--- NOTE | 2023-10-22 12:34 | A.OFFVIS_ITS ---
Vital Signs 10/22/23 12:39 Height 5 ft 3 in Weight 224 lb 6.889 oz BMI 39.8 BP 134/80 Blood Pressure Location Lt brachial Position Sitting Pulse 72 Pulse Source Pulse Oximeter Pulse Oximetry (%) 94 Oxygen Delivery Method Room Air Intake Visit Reasons: KEL +ve/LM Intake Note: Patient presents for KEL. Allergies mold Allergy (Mild, Verified 10/22/23 12:38) SNEEZING prednisone [Prednisone] Allergy (Mild, Verified 10/22/23 12:38) NAUSEA & VOMITING losartan Allergy (Unknown, Verified 10/22/23 12:38) unknown clindamycin [CLINDAMYCIN] Adverse Reaction (Severe, Verified 10/22/23 12:38) C.DIFFICILE procaine [From Novocain] Adverse Reaction (Severe, Verified 10/22/23 12:38) NOVOCAIN WITH EPI CUSES PALPITATION erythromycin base [Erythromycin Base] Adverse Reaction (Mild, Verified 10/22/23 12:38) NAUSEA & VOMITING ? disolving stitches Allergy (Unknown, Uncoded 09/13/23 13:36) skin burn/ulceration adhesives Allergy (Unknown, Uncoded 09/13/23 13:36) skin burning, blisters Medication List - Last Reconciled 10/22/23 by Merlin Raymundo MD amitriptyline 25 mg PO DAILY 90 days ascorbic acid (vitamin C) (Vitamin C) 250 mg PO DAILY calcium carbonate-vitamin D3 600 mg-10 mcg (400 unit) (Calcium with Vitamin D) 1 tab PO BID 90 days citalopram 10 mg PO DAILY 90 days cyanocobalamin (vitamin B-12) 1,000 mcg PO .weekly 90 days [EyePromise Restore ] ferrous sulfate 325 mg PO DAILY fexofenadine-pseudoephedrine 60-120 mg ER (Vanessa-D 12 Hour) 1 tab PO Q12H PRN ibuprofen 800 mg PO Q8H PRN irbesartan 300 mg PO DAILY lansoprazole (Prevacid 24Hr) 15 mg PO DAILY metoprolol succinate ER 100 mg PO DAILY 90 days multivitamin 1 tab PO DAILY oxycodone-acetaminophen 5-325 mg (Percocet) 1 tab PO ONCE PRN 7 days Saccharomyces boulardii (Daily Probiotic (S. boulardii)) 150 mg PO BID semaglutide (weight loss) (Wegovy) 0.25 mg (0.5 mL) subcut QWEEK simvastatin 40 mg PO BEDTIME 90 days sumatriptan succinate 100 mg PO BID 15 days thiamine HCl (vitamin B1) (Vitamin B-1) 100 mg PO DAILY HPI Comments Details: Patient returns for follow-up after completion of her diagnostic workup. Continues to feel about the same. Initial history: This is a 53-year-old female who presents for evaluation of a positive KEL. This was ordered in the context of generalized fatigue, weight gain. She has been having right shoulder pain for some years now. She believes 8 started after she fell from a ladder and injured her right shoulder. She has known moderate right shoulder osteoarthritis. 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 She was evaluated by multiple rheumatologists. Testing for rheumatoid arthritis was negative. She was never diagnosed with an underlying autoimmune rheumatic disease. Patient sleep study and it was negative for ELVIN. Patient believes she has a great aunt with lupus but can not confirm it. Otherwise she is unaware of any family history of autoimmune rheumatic disease. She denies any DVT/PE. One , she has twins. No abortions or miscarriages. Denies any skin rashes [facility] Medical History Schamberg disease Skin lesion of neck Mucous cyst of toe Cyst, dermoid, face HTN (hypertension) Hyperplastic colon polyp (~2020) Obesity Smoker History of back pain Hx of seasonal allergies Hx of iron deficiency anemia Depression Anxiety High cholesterol Migraines Surgical History Hx of bilateral oophorectomy History of colonoscopy (~2020) History of tubal ligation (~2006) History of gastric bypass (~2016) History of surgical removal of skin lesion (~2021) History of lymph node biopsy (~2017) History of blepharoplasty (~2014) History of colposcopy (~2008) History of tonsillectomy and adenoidectomy (~1985) History of surgical removal of ganglion cyst (~2011) History of foot surgery (~2014) History of bunionectomy of right great toe (~2011) History of nasal surgery (~2008) Hx of endoscopy Family History Father Hx of diabetes insipidus Mother Hx of diabetes insipidus Maternal Aunt Breast cancer Son No problems noted. Daughter No problems noted. Social History Household Members: None Housing: House Are you a primary wound care nurse to a significant other at home: No Do you presently have visiting nurse or other home services: No Alcohol intake: never Comment: Patient states is tolerable Patient Tobacco Use Status: Current everyday Tobacco user Tobacco use type: Cigarette Cigarettes Per Day: 6 Years Smoked: 35 e-Cigarette/Vaping Use: Never Used Second Hand Smoke Exposure: No service: No Current occupational status: employed Current occupation: [employer]- Cognitive needs: No Hearing needs: No Vision needs: No Female Reproductive History Menstrual Age of Menarche: 10 Review of Systems Const Reports weight gain Musc Reports arthralgias, Reports joint swelling and Reports stiffness Physical Exam Vital Signs: Last Vital Signs Pulse 72 10/22/23 12:39 BP 134/80 10/22/23 12:39 Pulse Ox 94 10/22/23 12:39 Oxygen Delivery Method Room Air 10/22/23 12:39 BMI result Body Mass Index 39.8 Const General: cooperative, healthy appearing and comfortable Nutritional Appearance: obese morbidly obese Orientation/consciousness: patient oriented x3 Limitations: no limitations HEENT Head: Yes normocephalic and Yes atraumatic Mouth: moist mucous membranes Resp Effort & Inspection: normal respiratory effort and able to speak in complete sentences Cardio Rate: regular rate Rhythm: regular rhythm Neuro General: patient oriented x3 Extrem Other: Mild osteoarthritic changes of both hands with no active synovitis Normal nailfold capillaroscopy Normal range of motion of hands, wrists, elbows and shoulders without pain no knee pain with full flexion-extension Negative MTP squeeze test bilaterally Assessment & Plan Assessment & Plan (1) Positive KEL (antinuclear antibody): Code(s): R76.8 - Other specified abnormal immunological findings in serum Category: Medical Plan: This is a 53-year-old female who presents for evaluation of a positive KEL. This is in the context of fatigue and diffuse pain. She has history of biopsy- proven rheumatoid nodule on her right foot more than a decade ago. Labs showed borderline positive [employer] antibody low C3 and C4. There is no cytopenias, no proteinuria, no LFT abnormality. Discussed risks and benefits of hydroxychloroquine. Patient states that she just had an eye exam, she is on vitamins to protect against age-related macular degeneration. 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 Patient is on citalopram and amitriptyline, both can potentially prolong the QTC interval. Advised patient to get a baseline EKG today to monitor her QTC interval, repeat EKG 2 weeks after taking hydroxychloroquine. Labs before next visit in 3 month (2) Long-term use of hydroxychloroquine: Code(s): Z79.899 - Other long filler cigar roller machine (current) drug therapy Category: Medical Plan: Discussed risk of retinopathy associated with hydroxychloroquine. Patient will reach out to her curing oven tender Plan I spent 27 minutes reviewing patient's chart, evaluating patient, ordering diagnostic workup, counseling patient and documenting in the chart Orders: Orders Anti DNA DS Antibody 3 Months M32.9 - Systemic lupus erythematosus, unspecified Complement C4 3 Months M32.9 - Systemic lupus erythematosus, unspecified Erythrocyte Sedimentation Rate 3 Months M32.9 - Systemic lupus erythematosus, unspecified Protein Creatinine Ratio, Ur 3 Months M32.9 - Systemic lupus erythematosus, unspecified UA w Microscopic 3 Months M32.9 - Systemic lupus erythematosus, unspecified Comprehensive Met. Panel 3 Months M32.9 - Systemic lupus erythematosus, unspecified ECG 12 lead EKG Today Z79.899 - Other [facility]p (current) drug therapy Complement C3 3 Months M32.9 - Systemic lupus erythematosus, unspecified DNA Double Stranded-Crithidia 3 Months M32.9 - Systemic lupus erythematosus, unspecified Complete Blood Count Auto Diff 3 Months M32.9 - Systemic lupus erythematosus, unspecified ECG 12 lead EKG 2 Weeks Z79.899 - Other long filler cigar roller machine (current) drug therapy Coding Level of Care Code Est Pt Level 4 (83149) Diagnoses Positive KEL (antinuclear antibody) R76.8 Long-term use of hydroxychloroquine Z79.899
[2023-10-22 12:39] VITALS: BP 134/80; PULSE 72; O2SAT 94; BMI 39.8
== END 2023-10-22 13:20 | disposition home or self-care (01) ==
PROVIDERS: PCP Nurse Practitioner Family; Visit Provider Student in an Organized Health Care Education/Training Program
DX: R76.8 Other specified abnormal immunological findings in serum (principal); Z79.899 Other long term (current) drug therapy
CPT/HCPCS: 99214

== ENCOUNTER → 2023-10-22 12:26 | Outpatient (REF) | payer OTHER, SELFPAY ==
--- NOTE | 2023-10-22 15:22 | ECG_ITS ---
Test Reason : intermediate drug therapy Blood Pressure : / mmHG Vent. Rate : 069 BPM Atrial Rate : 069 BPM P-R Int : 204 ms QRS Dur : 086 ms QT Int : 432 ms P-R-T Axes : 066 -09 080 degrees QTc Int : 462 ms Normal sinus rhythm Nonspecific T wave abnormality Abnormal ECG When compared with ECG of 15-FEB-2022 08:22, Nonspecific T wave abnormality, worse in Lateral leads Referred By: Merlin Raymundo Electronically Signed By:THOMAS HICKS MD
== END ==
LOC: HO.CARD 12:26
PROVIDERS: PCP Nurse Practitioner Family; Visit Provider Student in an Organized Health Care Education/Training Program
DX: Z79.899 Other long term (current) drug therapy (principal)
CPT/HCPCS: 93005

== ENCOUNTER → 2023-10-22 15:22 | Outpatient (BNV) | payer OTHER, SELFPAY | PROVIDERS: PCP Nurse Practitioner Family; Visit Provider Internal Medicine Cardiovascular Disease | DX: R94.31 Abnormal electrocardiogram [ECG] [EKG] (principal) | CPT/HCPCS: 93010 ==

== ENCOUNTER → 2023-11-05 10:15 | Outpatient (BNVA) | payer SELFPAY | PROVIDERS: PCP Nurse Practitioner Family ==

== ENCOUNTER → 2023-11-16 11:25 | Outpatient (REF) | payer OTHER, SELFPAY ==
--- NOTE | 2023-11-16 11:28 | ECG_ITS ---
Test Reason : Z79.899 - Other prison (current) drug therapy Blood Pressure : / mmHG Vent. Rate : 065 BPM Atrial Rate : 065 BPM P-R Int : 204 ms QRS Dur : 088 ms QT Int : 428 ms P-R-T Axes : 066 -12 066 degrees QTc Int : 445 ms Normal sinus rhythm Nonspecific T wave abnormality Abnormal ECG When compared with ECG of 22-OCT-2023 15:24, No significant change was found Referred By: Merlin Raymundo Electronically Signed By:THOMAS HICKS MD
== END ==
LOC: HO.CARD 11:25
PROVIDERS: PCP Nurse Practitioner Family; Visit Provider Student in an Organized Health Care Education/Training Program
DX: Z79.899 Other long term (current) drug therapy (principal)
CPT/HCPCS: 93005

== ENCOUNTER → 2023-11-16 11:28 | Outpatient (BNV) | payer OTHER, SELFPAY | PROVIDERS: PCP Nurse Practitioner Family; Visit Provider Internal Medicine Cardiovascular Disease | DX: R94.31 Abnormal electrocardiogram [ECG] [EKG] (principal) | CPT/HCPCS: 93010 ==

== ENCOUNTER 2024-01-01 09:55 | Outpatient (AMB) | payer OTHER, SELFPAY ==
--- NOTE | 2024-01-01 09:58 | A.OFFPC_ITS ---
Vital Signs 01/01/24 09:59 Height 5 ft 3 in Weight 221 lb BMI 39.1 BP 128/76 Blood Pressure Location Rt brachial Position Sitting Pulse 74 Pulse Source Pulse Oximeter Pulse Oximetry (%) 97 Oxygen Delivery Method Room Air Intake Visit Reasons: 4 mon f/u Intake Note: pt is here for 4 month follow up Manager Field Service Required: No Accompanied by: Self / Same As Patient Allergies mold Allergy (Mild, Verified 01/01/24 10:00) SNEEZING prednisone [Prednisone] Allergy (Mild, Verified 01/01/24 10:00) NAUSEA & VOMITING losartan Allergy (Unknown, Verified 01/01/24 10:00) unknown clindamycin [CLINDAMYCIN] Adverse Reaction (Severe, Verified 01/01/24 10:00) C.DIFFICILE procaine [From Novocain] Adverse Reaction (Severe, Verified 01/01/24 10:00) NOVOCAIN WITH EPI CUSES PALPITATION erythromycin base [Erythromycin Base] Adverse Reaction (Mild, Verified 01/01/24 10:00) NAUSEA & VOMITING ? disolving stitches Allergy (Unknown, Uncoded 09/13/23 13:36) skin burn/ulceration adhesives Allergy (Unknown, Uncoded 09/13/23 13:36) skin burning, blisters Tobacco use date assessed: 09/05/23 Dental Screening Dental Screen Date: 09/05/23 HPI 4 mon f/u HPI Details HTN: Blood pressure is stable, managed with irbesartan 300mg and metoprolol 100mg. Denies chest pain, shortness of breath, headache, dizziness, and blurred vision. [facility] Medical History Schamberg disease Skin lesion of neck Mucous cyst of toe Cyst, dermoid, face HTN (hypertension) Hyperplastic colon polyp (~2020) Obesity Smoker History of back pain Hx of seasonal allergies Hx of iron deficiency anemia Depression Anxiety High cholesterol Migraines Surgical History Hx of bilateral oophorectomy History of colonoscopy (~2020) History of tubal ligation (~2006) History of gastric bypass (~2016) History of surgical removal of skin lesion (~2021) History of lymph node biopsy (~2017) History of blepharoplasty (~2014) History of colposcopy (~2008) History of tonsillectomy and adenoidectomy (~1985) History of surgical removal of ganglion cyst (~2011) History of foot surgery (~2014) History of bunionectomy of right great toe (~2011) History of nasal surgery (~2008) Hx of endoscopy Family History Father Hx of diabetes insipidus Mother Hx of diabetes insipidus Maternal Aunt Breast cancer Son No problems noted. Daughter No problems noted. Social History Household Members: None Housing: House Are you a primary care technician to a significant other at home: No Do you presently have visiting nurse or other home services: No Alcohol intake: never Comment: Patient states is tolerable Patient Tobacco Use Status: Current everyday Tobacco user Tobacco use type: Cigarette Cigarettes Per Day: 6 Years Smoked: 35 e-Cigarette/Vaping Use: Never Used Second Hand Smoke Exposure: No service: No Current occupational status: employed Current occupation: [employer]- Cognitive needs: No Hearing needs: No Vision needs: No Female Reproductive History Menstrual Age of Menarche: 10 Questionnaire PHQ-9 Over the last 2 weeks, how often have you been bothered by any of the following problems? 1. Little interest or pleasure in doing things: not at all 2. Feeling down, depressed, or hopeless: not at all 3. Trouble falling or staying asleep, or sleeping too much: not at all 4. Feeling tired or having little energy: not at all 5. Poor appetite or overeating: several days 6. Feeling bad about yourself - or that you are a failure or have let yourself or your family down: not at all 7. Trouble concentrating on things, such as reading the newspaper or watching television: not at all 8. Moving or speaking so slowly that other people could have noticed. Or the opposite - being so fidgety or restless that you have been moving around a lot more than usual: not at all 9. Thoughts that you would be better off or of hurting yourself in some way: not at all Total score: 1 Depression Screening Interpretation: Negative Depression Screening Done: Yes 59030 - PHQ-9 Billing: Yes Source: Developed by Drs. Golden Dunn, Shabnam Cortez, Sam Hernandes and colleagues, with an educational kieran from [employer]. Thrive Questionnaire Date Thrive assessed: 12/25/23 I am a: Patient What is your living situation today?: I have a steady place to live Within the past 12 months, did the food you bought not last and you didn't have the money to get more?: Never true Within the past 12 months, did you worry whether your food would run out before you got money to buy more?: Never true Do you have trouble paying for medicines?: No Do you have trouble getting transportation to medical appointments?: No Do you have trouble paying your heating and electricity bill?: No Do you have trouble taking care of your child, family member or friend?: No Do you have trouble with day-to-day activities such as bathing, preparing meals, shopping, managing finances, etc.?: No Are you interested in more education?: No Please select the resources that you would like help with: None Currently or been in a relationship where the following occur: No concerns reported THRIVE Score: 0 AUDIT C Alcohol Use Questionnaire (AUDIT-C) 1. How often do you have a drink containing alcohol?: Monthly or less 2. How many drinks containing alcohol do you have on a typical day when you are drinking?: 1 or 2 3. How often do you have six or more drinks on one occasion?: Never Total Score: 1 BARB-7 AMB Questionnaire BARB-7 Date BARB - 7 assessed: 09/05/23 Feeling nervous, anxious, or on edge: 0 = Not at all Not being able to stop or control worryin = Not at all Worrying too much about different things: 0 = Not at all Trouble relaxin = Not at all Being so restless that it is hard to sit still: 0 = Not at all Becoming easily annoyed or irritable: 1 = Several days Feeling afraid as if something awful might happen: 0 = Not at all Total BARB-7 score (0-4 normal; 5-9 mild; 10-14 moderate; 15-21 severe): 1 Source: Developed by Shabnam Ruiz Kurt Kroenke and colleagues, with an educational kieran from [employer]. BARB-7 Assessment Billing BARB-7 Assessment Tool: BARB-7 Assessment 80500 Review of Systems Const Reports as per HPI Physical exam (Primary Care) Vital Signs: Last Vital Signs Pulse 74 01/01/24 09:59 BP 128/76 01/01/24 09:59 Pulse Ox 97 01/01/24 09:59 Oxygen Delivery Method Room Air 01/01/24 09:59 BMI result Body Mass Index 39.1 Tobacco/Smoking Status: Tobacco use Status Tobacco use date assessed 09/05/23 01/01/24 10:01 Patient Tobacco Use Status Current everyday Tobacco 01/01/24 10:01 Tobacco use type Cigarette 01/01/24 10:01 e-Cigarette/Vaping Use Never Used 01/01/24 10:01 PHQ-9: PHQ-9 Score PHQ-9: Total score 1 01/01/24 10:01 Depression Screening Interpretation: Negative Thrive Assessment: Date of Thrive Assessment Date Thrive assessed 12/25/23 01/01/24 10:01 Currently or been in a relationship where the following occur: No concerns reported Const General: cooperative Nutritional Appearance: obese Orientation/consciousness: patient oriented x3 Resp Effort & Inspection: normal respiratory effort Auscultation: clear to auscultation bilaterally Cardio Rate: regular rate Rhythm: regular rhythm Heart sounds: S1 normal heart sound present and S2 normal heart sound present Neuro General: patient oriented x3 Psych Appearance: grossly normal Mental Status: mental status grossly normal Speech and movement: Normal speech and movement present Affect: normal affect Attitude: cooperative Thought process: Normal thought process present Thought content: Normal thought content present Insight: Good insight present (Psych) Judgement: Good judgement present (Psych) Assessment and Plan Assessment & Plan (1) HTN (hypertension): Code(s): I10 - Essential (primary) hypertension Plan: stable currently (2) B12 deficiency: Code(s): E53.8 - Deficiency of other specified B group vitamins Plan: Labs ordered Plan The patient agreed to the use of a medical education coordinator for this encounter. Scribed for SHEFALI Linares by Diamante Bird medical education coordinator, on 01/01/2024 at 10:15 EST. Orders: Orders Comprehensive [place]. Panel Fast Today I10 - Essential (primary) hypertension Lipid Panel Today I10 - Essential (primary) hypertension Complete Blood Count Auto Diff Today I10 - Essential (primary) hypertension TSH reflex Free T4 Today I10 - Essential (primary) hypertension UA CC w/rflx Micro + Cult Today I10 - Essential (primary) hypertension Vitamin B12 and Folate Today E53.8 - Deficiency of other specified B group vitamins Coding Level of Care Code Est Pt Level 3 (17840) Diagnoses HTN (hypertension) I10 B12 deficiency E53.8 Additional Codes BARB-7 Assessment Billing - BARB-7 Assessment Tool: BARB-7 Assessment 27966 ([id number])
[2024-01-01 09:59] VITALS: BP 128/76; PULSE 74; O2SAT 97; BMI 39.1
== END 2024-01-01 10:40 | disposition home or self-care (01) ==
PROVIDERS: PCP Nurse Practitioner Family; Visit Provider Nurse Practitioner Family
DX: I10 Essential (primary) hypertension (principal); E53.8 Deficiency of other specified B group vitamins

== ENCOUNTER → 2024-01-01 09:55 | Outpatient (BNVA) | payer OTHER, SELFPAY | PROVIDERS: PCP Nurse Practitioner Family; Visit Provider Nurse Practitioner Family | DX: I10 Essential (primary) hypertension (principal); E53.8 Deficiency of other specified B group vitamins; Z79.899 Other long term (current) drug therapy | CPT/HCPCS: 96127 ==

== ENCOUNTER 2024-01-15 15:29 | Outpatient (REF) | payer OTHER, SELFPAY ==
[2024-01-15 16:02] LABS: MANUAL DIFF FLAG NO
[2024-01-15 17:01] LABS: Basophils Absolute Auto 0.1 X10*3/uL (0.0-0.2); Basophils Percent Auto 0.9 % (0-2); Eosinophils Absolute Auto 0.2 X10*3/uL (0.0-0.4); Eosinophils Percent Auto 3.6 % (0-4); Hematocrit 41.8 % (37.0-47.0); Hemoglobin 14.2 g/dl (12.0-16.0); Imm Gran Abs Auto 0.01 X10*3/uL (0.00-0.03); Imm Gran Pct Auto 0.2 % (0.0-0.4); Lymphocytes Absolute Auto 2.1 X10*3/uL (1.2-4.9); Lymphocytes Percent Auto 32.4 % (20-40); Mean Corpuscular Hemoglobin 29.7 pg (27.0-33.0); Mean Corpuscular Volume 87.4 fL (80.0-98.0); Mean Platelet Volume 9.9 fL (9.4-12.3); Monocytes Absolute Auto 0.6 X10*3/uL (0.1-1.2); Monocytes Percent Auto 8.7 % (2-11); Neutrophils Absolute Auto 3.6 x10*3/uL (2.0-8.3); Neutrophils Percent Auto 54.2 % (45-73); Platelet Count 317 X10*3/uL (160-400); Red Blood Count 4.78 X10*6/uL (4.20-5.50); Red Cell Distribution Width 12.9 % (11.0-16.0); White Blood Count 6.6 X10*3/uL (4.8-10.8)
[2024-01-15 17:30] LABS: Appearance Urine Clear; Color Urine Yellow; Glucose Urine UA Negative (Negative); Leukocyte Esterase Urine Negative (Negative); Nitrite Urine Negative (Negative); PH 5.5 (5.0-9.0); Specific Gravity - Urine 1.025 (1.005-1.025); Urine Blood Negative (Negative); Urine Ketones Negative (Negative); Urine Protein Negative (Neg-Trace)
[2024-01-15 17:37] LABS: Alanine Aminotransferase 15 U/L (0-31); Albumin Level 4.2 g/dL (3.5-5.0); Alkaline Phosphatase 71 U/L (39-117); Anion Gap 10 (12-20); Aspartate Amino Transferase 20 U/L (5-31); Bilirubin Total 0.2 mg/dL (0.0-1.0); Blood Urea Nitrogen 14 mg/dL (9-16); Calcium 9.6 mg/dL (8.4-10.2); Carbon Dioxide 28 mmol/L (22-29); Chloride 108 mmol/L (96-108); Estimated Glomerular Filt Rate > 60; Glucose Random 79 mg/dL (60-115); Potassium 4.1 mmol/L (3.3-5.1); Sodium 142 mmol/L (135-145); Total Protein 6.9 g/dL (6.5-8.0)
[2024-01-15 17:43] LABS: Bacteria Urine Trace (None Seen); Hyaline Casts Urine 0-2 /LPF (0-2); RBC Urine 0-2 /HPF (0-2); Squamous Epithelial Cell Urine 0-2 /HPF (0-2); WBC Urine 0-5 /HPF (0-5)
[2024-01-15 17:48] LABS: Erythrocyte Sedimentation Rate 12 MM/HR (0-20)
[2024-01-15 18:08] LABS: Creatinine Urine 132.49 mg/dL; Protein/Creatinine Ratio, Ur 0.06 (<0.2); Total Protein Urine Random 8 mg/dL (<12)
[2024-01-16 18:08] LABS: Complement C3 114 mg/dL (83-193)
[2024-01-17 07:09] LABS: Anti DNA DS Antibody <1 IU/mL
[2024-01-21 05:33] LABS: DNAds, Crithidia Antibody Negative (Negative)
== END 2024-01-15 15:30 | disposition home or self-care (01) ==
LOC: HO.LAB 15:29
PROVIDERS: PCP Nurse Practitioner Family; Visit Provider Student in an Organized Health Care Education/Training Program
DX: M32.9 Systemic lupus erythematosus, unspecified (principal)
CPT/HCPCS: 36415; 80053; 81001; 82570; 84156; 85025; 85652; 86160; 86225; 86255

== ENCOUNTER 2024-01-22 14:13 | Outpatient (AMB) | payer OTHER, SELFPAY ==
--- NOTE | 2024-01-22 14:15 | A.OFFVIS_ITS ---
Vital Signs 01/22/24 14:18 Height 5 ft 3 in Weight 220 lb 14.451 oz BMI 39.1 BP 124/80 Blood Pressure Location Rt brachial Position Sitting Pulse 76 Pulse Source Pulse Oximeter Pulse Oximetry (%) 93 Oxygen Delivery Method Room Air Intake Visit Reasons: UCTD Intake Note: Patient presents for UCTD. Allergies mold Allergy (Mild, Verified 01/22/24 14:17) SNEEZING prednisone [Prednisone] Allergy (Mild, Verified 01/22/24 14:17) NAUSEA & VOMITING losartan Allergy (Unknown, Verified 01/22/24 14:17) unknown clindamycin [CLINDAMYCIN] Adverse Reaction (Severe, Verified 01/22/24 14:17) C.DIFFICILE procaine [From Novocain] Adverse Reaction (Severe, Verified 01/22/24 14:17) NOVOCAIN WITH EPI CUSES PALPITATION erythromycin base [Erythromycin Base] Adverse Reaction (Mild, Verified 01/22/24 14:17) NAUSEA & VOMITING ? disolving stitches Allergy (Unknown, Uncoded 09/13/23 13:36) skin burn/ulceration adhesives Allergy (Unknown, Uncoded 09/13/23 13:36) skin burning, blisters Medication List - Last Reconciled 01/22/24 by Merlin Raymundo MD amitriptyline 25 mg PO DAILY 90 days calcium carbonate-vitamin D3 600 mg-10 mcg (400 unit) (Calcium with Vitamin D) 1 tab PO BID 90 days citalopram 10 mg PO DAILY 90 days cyanocobalamin (vitamin B-12) 1,000 mcg PO .weekly 90 days [EyePromise Restore ] fexofenadine-pseudoephedrine 60-120 mg ER (Vanessa-D 12 Hour) 1 tab PO Q12H PRN ibuprofen 800 mg PO Q8H PRN irbesartan 300 mg PO DAILY lansoprazole (Prevacid 24Hr) 15 mg PO DAILY metoprolol succinate ER 100 mg PO DAILY 90 days multivitamin 1 tab PO DAILY ondansetron HCl 8 mg PO Q12H PRN 10 days oxycodone-acetaminophen 5-325 mg (Percocet) 1 tab PO ONCE PRN 7 days Saccharomyces boulardii (Daily Probiotic (S. boulardii)) 150 mg PO BID semaglutide (weight loss) (Wegovy) 0.25 mg (0.5 mL) subcut QWEEK simvastatin 40 mg PO BEDTIME 90 days sumatriptan succinate 100 mg PO BID 15 days thiamine HCl (vitamin B1) (Vitamin B-1) 100 mg PO DAILY HPI Comments Details: Patient returns for follow-up, she has been taking hydroxychloroquine 200 mg regularly for the last 3 months. She feels no improvement. No change in her symptoms. Initial history: This is a 53-year-old female who presents for evaluation of a positive KEL. This was ordered in the context of generalized fatigue, weight gain. She has been having right shoulder pain for some years now. She believes 8 started after she fell from a ladder and injured her right shoulder. She has known moderate right shoulder osteoarthritis. 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 She was evaluated by multiple rheumatologists. Testing for rheumatoid arthritis was negative. She was never diagnosed with an underlying autoimmune rheumatic disease. Patient sleep study and it was negative for ELVIN. Patient believes she has a great aunt with lupus but can not confirm it. Otherwise she is unaware of any family history of autoimmune rheumatic disease. She denies any DVT/PE. One , she has twins. No abortions or miscarriages. Denies any skin rashes [facility] Medical History Schamberg disease Skin lesion of neck Mucous cyst of toe Cyst, dermoid, face HTN (hypertension) Hyperplastic colon polyp (~2020) Obesity Smoker History of back pain Hx of seasonal allergies Hx of iron deficiency anemia Depression Anxiety High cholesterol Migraines Surgical History Hx of bilateral oophorectomy History of colonoscopy (~2020) History of tubal ligation (~2006) History of gastric bypass (~2016) History of surgical removal of skin lesion (~2021) History of lymph node biopsy (~2017) History of blepharoplasty (~2014) History of colposcopy (~2008) History of tonsillectomy and adenoidectomy (~1985) History of surgical removal of ganglion cyst (~2011) History of foot surgery (~2014) History of bunionectomy of right great toe (~2011) History of nasal surgery (~2008) Hx of endoscopy Family History Father Hx of diabetes insipidus Mother Hx of diabetes insipidus Maternal Aunt Breast cancer Son No problems noted. Daughter No problems noted. Social History Household Members: None Housing: House Are you a primary residential child care counselor to a significant other at home: No Do you presently have visiting nurse or other home services: No Alcohol intake: never Comment: Patient states is tolerable Patient Tobacco Use Status: Current everyday Tobacco user Tobacco use type: Cigarette Cigarettes Per Day: 6 Years Smoked: 35 e-Cigarette/Vaping Use: Never Used Second Hand Smoke Exposure: No service: No Current occupational status: employed Current occupation: [employer]- Cognitive needs: No Hearing needs: No Vision needs: No Female Reproductive History Menstrual Age of Menarche: 10 Review of Systems Const Reports fatigue Musc Reports arthralgias Endo Reports fatigue Physical Exam Vital Signs: Last Vital Signs Pulse 76 01/22/24 14:18 BP 124/80 01/22/24 14:18 Pulse Ox 93 01/22/24 14:18 Oxygen Delivery Method Room Air 01/22/24 14:18 BMI result Body Mass Index 39.1 Const General: cooperative, healthy appearing and comfortable Nutritional Appearance: obese morbidly obese Orientation/consciousness: patient oriented x3 Limitations: no limitations HEENT Head: Yes normocephalic and Yes atraumatic Resp Effort & Inspection: normal respiratory effort and able to speak in complete sentences Cardio Rate: regular rate Rhythm: regular rhythm Neuro General: patient oriented x3 Extrem Other: Mild osteoarthritic changes of both hands . Slightly tender Heberden's nodes Normal nailfold capillaroscopy Normal range of motion of hands, wrists, elbows and shoulders without pain no knee pain with full flexion-extension Negative MTP squeeze test bilaterally Assessment & Plan Assessment & Plan (1) Positive KEL (antinuclear antibody): Code(s): R76.8 - Other specified abnormal immunological findings in serum Category: Medical Plan: This is a 53-year-old female who presents for follow-up. Last visit I diagnosed her with UCTD based on borderline positive [employer] BRICK antibody as well as low C3-4 in the context of diffuse pain and fatigue. I gave her a trial of hydroxychloroquine 200 mg Twice daily. She has been taking it for 3 months without any symptomatic improvement. I think at this point, her symptoms are rather consistent with osteoarthritis and fibromyalgia. I will discontinue hydroxychloroquine Follow-up as needed Plan I spent 17 minutes reviewing patient's chart, evaluating patient, , counseling patient and documenting in the chart Medications: Discontinued hydroxychloroquine Discontinued Reason: Doctor's Order 200 mg PO BID 60 tabs 2RF Coding Level of Care Code Est Pt Level 3 (14074) Diagnoses Positive KEL (antinuclear antibody) R76.8
[2024-01-22 14:18] VITALS: BP 124/80; PULSE 76; O2SAT 93; BMI 39.1
== END 2024-01-22 15:02 | disposition home or self-care (01) ==
PROVIDERS: PCP Nurse Practitioner Family; Visit Provider Student in an Organized Health Care Education/Training Program
DX: R76.8 Other specified abnormal immunological findings in serum (principal)
CPT/HCPCS: 99213

== ENCOUNTER → 2024-01-22 14:13 | Outpatient (BNVA) | payer OTHER, SELFPAY | PROVIDERS: PCP Nurse Practitioner Family; Visit Provider Student in an Organized Health Care Education/Training Program ==

== ENCOUNTER 2024-02-20 09:42 | Outpatient (AMB) | payer OTHER, SELFPAY ==
--- NOTE | 2024-02-20 09:48 | MHC.OFFWIV ---
Intake Vital Signs 02/20/24 09:50 Weight 221 lb BP 132/84 Blood Pressure Location Lt brachial Pulse 74 Pulse Source Pulse Oximeter Temp 98.3 F Temp Source Oral Pulse Oximetry (%) 98 Oxygen Delivery Method Room Air Intake Visit Reasons: EP Sore throat, ear pain, rt side sinus pain Intake Note: Patient here for sore throat, righ ear pain and right sided sinus pressure. Patient Tobacco Use Status: Current everyday Tobacco user Allergies mold Allergy (Mild, Verified 02/20/24 09:51) SNEEZING prednisone [Prednisone] Allergy (Mild, Verified 02/20/24 09:51) NAUSEA & VOMITING losartan Allergy (Unknown, Verified 02/20/24 09:51) unknown clindamycin [CLINDAMYCIN] Adverse Reaction (Severe, Verified 02/20/24 09:51) C.DIFFICILE procaine [From Novocain] Adverse Reaction (Severe, Verified 02/20/24 09:51) NOVOCAIN WITH EPI CUSES PALPITATION erythromycin base [Erythromycin Base] Adverse Reaction (Mild, Verified 02/20/24 09:51) NAUSEA & VOMITING ? disolving stitches Allergy (Unknown, Uncoded 02/20/24 09:51) skin burn/ulceration adhesives Allergy (Unknown, Uncoded 02/20/24 09:51) skin burning, blisters Do you need a note to return to daycare/school/sports/work: No HPI HPI Comments History of Present Illness Details Patient is a 53-year-old female complaining of 4 days of a sore throat, sinus pain on the right side and ear on the right side. She states the pain radiates into her jaw and teeth. She is able to eat and drink but warm liquids feel better than cool liquids and she did have a tooth pulled on the left side a few days ago so it has been a bit tricky to eat. She denies any fevers, cough, head congestion, shortness of breath or wheezing. She has not tried to take any medications to make herself feel better. She denies a history of asthma or COPD. She did not test for COVID at home. She does have some sick contacts at work. [facility] Medical History Schamberg disease Skin lesion of neck Mucous cyst of toe Cyst, dermoid, face HTN (hypertension) Hyperplastic colon polyp (~2020) Obesity Smoker History of back pain Hx of seasonal allergies Hx of iron deficiency anemia Depression Anxiety High cholesterol Migraines Surgical History Hx of bilateral oophorectomy History of colonoscopy (~2020) History of tubal ligation (~2006) History of gastric bypass (~2016) History of surgical removal of skin lesion (~2021) History of lymph node biopsy (~2017) History of blepharoplasty (~2014) History of colposcopy (~2008) History of tonsillectomy and adenoidectomy (~1985) History of surgical removal of ganglion cyst (~2011) History of foot surgery (~2014) History of bunionectomy of right great toe (~2011) History of nasal surgery (~2008) Hx of endoscopy Family History Father Hx of diabetes insipidus Mother Hx of diabetes insipidus Maternal Aunt Breast cancer Son No problems noted. Daughter No problems noted. Social History Household Members: None Housing: House Are you a primary progressive care unit registered nurse to a significant other at home: No Do you presently have visiting nurse or other home services: No Alcohol intake: never Comment: Patient states is tolerable Patient Tobacco Use Status: Current everyday Tobacco user Tobacco use type: Cigarette Cigarettes Per Day: 6 Years Smoked: 35 e-Cigarette/Vaping Use: Never Used Second Hand Smoke Exposure: No service: No Current occupational status: employed Current occupation: [employer]- Cognitive needs: No Hearing needs: No Vision needs: No Female Reproductive History Menstrual Age of Menarche: 10 Review of Systems Const All systems reviewed & are unremarkable except as noted in HPI and below Physical Exam Vital Signs: Last Vital Signs Temp 98.3 F 02/20/24 09:50 Pulse 74 02/20/24 09:50 BP 132/84 02/20/24 09:50 Pulse Ox 98 02/20/24 09:50 Oxygen Delivery Method Room Air 02/20/24 09:50 Const General: cooperative, healthy appearing, comfortable and no acute distress Orientation/consciousness: patient oriented x3 Limitations: no limitations HEENT Head: Yes normal to inspection Ears: hearing grossly normal bilaterally, external ears normal, Abnormal EAC present (Some nodular swelling but this may be her baseline, bilateral) and TM abnormal (right) dull, wth effusion, erythematous and with loss of landmarks General nose exam: Normal external nose present, Normal nares present and No nasal discharge present Face and sinus: Yes normal facial exam and Yes sinus tenderness (right frontal and maxillary) Mouth: Normal oral and palatal mucosa present and moist mucous membranes Throat: Yes tonsils normal, Yes uvula midline and Yes posterior oropharynx abnormal (Erythema) Eyes General: appearance normal, both eyes and all related structures Neck Neck: Yes normal visual inspection Resp Effort & Inspection: normal respiratory effort, able to speak in complete sentences, no respiratory distress, not tachypneic, no tripod positioning and no use of accessory muscles Skin General skin exam: no rashes or lesions noted Neuro General: patient oriented x3 Extrem General: Yes normal to inspection and Yes no clubbing, cyanosis or edema Results AMB Rapid Strep AMB Rapid Strep Negative Last Edit by Edi Hollins CMA on 02/20/24 10:11 Assessment & Plan Assessment & Plan (1) Otitis media of right ear: Code(s): H66.91 - Otitis media, unspecified, right ear Qualifiers: Otitis media type: suppurative Chronicity: acute Recurrence: non-recurrent Spontaneous tympanic membrane rupture: without spontaneous rupture Qualified Code(s): H66.001 - Acute suppurative otitis media without spontaneous rupture of ear drum, right ear Plan: Rapid strep negative in office, vital signs are stable, patient well-appearing. No exudates on exam. Right ear appears infected, sent Augmentin to cover her for a bacterial sinusitis as well. Although that is likely viral. (2) Sinusitis: Code(s): J32.9 - Chronic sinusitis, unspecified Qualifiers: Sinusitis location: maxillary Chronicity: acute Recurrence: non-recurrent Qualified Code(s): J01.00 - Acute maxillary sinusitis, unspecified Plan: See above Plan See above Orders: Orders AMB Rapid Strep Screen Today Z13.9 - Encounter for screening, unspecified Medications: New amoxicillin-pot clavulanate 875-125 mg 1 tab PO Q12H 14 tabs 0RF Coding Level of Care Code Est Pt Level 4 (42725) Diagnoses Non-recurrent acute suppurative otitis media of right ear without spontaneous rupture of tympanic membrane H66.001 Otitis media type: suppurative Chronicity: acute Recurrence: non-recurrent Spontaneous tympanic membrane rupture: without spontaneous rupture Acute non-recurrent maxillary sinusitis J01.00 Sinusitis location: maxillary Chronicity: acute Recurrence: non-recurrent
[2024-02-20 09:50] VITALS: BP 132/84; PULSE 74; TEMP 36.8; O2SAT 98
== END 2024-02-20 10:45 | disposition home or self-care (01) ==
PROVIDERS: PCP Nurse Practitioner Family; Visit Provider Physician Assistant
DX: H66.001 Acute suppurative otitis media without spontaneous rupture of ear drum, right ear (principal); J01.00 Acute maxillary sinusitis, unspecified; Z13.9 Encounter for screening, unspecified

== ENCOUNTER 2024-02-20 09:42 | Outpatient (REF) | payer OTHER, SELFPAY ==
[2024-02-20 14:21] LABS: Influenza A PCR NEGATIVE (Negative); Influenza B PCR NEGATIVE (Negative); Resp Syncy Virus RNA Qual PCR NEGATIVE (Negative); SARS COV2 PCR INHOUSE NEGATIVE (Negative)
== END 2024-02-20 09:43 | disposition home or self-care (01) ==
LOC: HO.LNP 09:42
PROVIDERS: PCP Nurse Practitioner Family; Visit Provider Physician Assistant
DX: H66.001 Acute suppurative otitis media without spontaneous rupture of ear drum, right ear (principal); J02.9 Acute pharyngitis, unspecified; J01.00 Acute maxillary sinusitis, unspecified
CPT/HCPCS: 0241U; 87880

== ENCOUNTER 2024-04-16 14:38 | Outpatient (AMB) | payer OTHER, SELFPAY ==
[2024-04-16 15:04] VITALS: BP 126/78; PULSE 75; O2SAT 95; BMI 39.1
--- NOTE | 2024-04-16 15:04 | A.OFFVIS_ITS ---
Vital Signs 04/16/24 15:04 Height 5 ft 3 in Weight 221 lb BMI 39.1 BP 126/78 Blood Pressure Location Lt brachial Position Sitting Pulse 75 Pulse Source Pulse Oximeter Pulse Oximetry (%) 95 Oxygen Delivery Method Room Air Intake Visit Reasons: INP-Headaches Allergies mold Allergy (Mild, Verified 04/16/24 15:06) SNEEZING prednisone [Prednisone] Allergy (Mild, Verified 04/16/24 15:06) NAUSEA & VOMITING losartan Allergy (Unknown, Verified 04/16/24 15:06) unknown clindamycin [CLINDAMYCIN] Adverse Reaction (Severe, Verified 04/16/24 15:06) C.DIFFICILE procaine [From Novocain] Adverse Reaction (Severe, Verified 04/16/24 15:06) NOVOCAIN WITH EPI CUSES PALPITATION erythromycin base [Erythromycin Base] Adverse Reaction (Mild, Verified 04/16/24 15:06) NAUSEA & VOMITING ? disolving stitches Allergy (Unknown, Uncoded 02/20/24 09:51) skin burn/ulceration adhesives Allergy (Unknown, Uncoded 02/20/24 09:51) skin burning, blisters HPI Comments Details: 53y/o Right handed female comes further management of migraines and jaw pain , clenching. She started having noticeable headaches in her 20 s.she used to see in the past .The headaches start in the bridge of her nose , eyes or start in the posterior neck or base of the skull, pressure pounding pain with light , noise sensitivity , occasional nausea , blurry vision , jaw pain . she takes sumatriptan 100mg cold compresses , ice cap etc and it helps.it can last few hrs . she has 2-3 migraines a week and has increased in frequency she tried topiramate for 10 years , had some cognitive issues so she stopped. Gabapentin did not help. She takes amitriptyline 25mg qhs Tried muscle relaxants she has not tried betablockers or calcium channel blockers. She has chronic jaw pain and has has multiple nightguards, medications , PT. she still has severe bruxism she has snoring and hypersomnia. she had 2 sleep studies 10 years ago- not sure of results. she also has neck pain. she has h/o depression and is citalopram which is helping. SHe had h/o face injury when she was 7 - had some dental work and orthodontic work done later. [facility] Medical History (Updated 04/16/24 @ 15:34 by Narda Ayala MD) Chronic migraine without aura Hypersomnia Snoring Sleep related bruxism Schamberg disease Skin lesion of neck Mucous cyst of toe Cyst, dermoid, face HTN (hypertension) Hyperplastic colon polyp (~2020) Obesity Smoker History of back pain Hx of seasonal allergies Hx of iron deficiency anemia Depression Anxiety High cholesterol Migraines Surgical History H/O tooth extraction Hx of bilateral oophorectomy History of colonoscopy (~2020) History of tubal ligation (~2006) History of gastric bypass (~2016) History of surgical removal of skin lesion (~2021) History of lymph node biopsy (~2017) History of blepharoplasty (~2014) History of colposcopy (~2008) History of tonsillectomy and adenoidectomy (~1985) History of surgical removal of ganglion cyst (~2011) History of foot surgery (~2014) History of bunionectomy of right great toe (~2011) History of nasal surgery (~2008) Hx of endoscopy Family History Father Hx of diabetes insipidus Mother Hx of diabetes insipidus Maternal Aunt Breast cancer Son No problems noted. Daughter No problems noted. Social History Household Members: None Housing: House Are you a primary assurance services manager health care to a significant other at home: No Do you presently have visiting nurse or other home services: No Alcohol intake: never Comment: Patient states is tolerable Patient Tobacco Use Status: Current everyday Tobacco user Tobacco use type: Cigarette Cigarettes Per Day: 6 Years Smoked: 35 e-Cigarette/Vaping Use: Never Used Second Hand Smoke Exposure: No service: No Current occupational status: employed Current occupation: [employer] [place]- Cognitive needs: No Hearing needs: No Vision needs: No Female Reproductive History Menstrual Age of Menarche: 10 Physical Exam Vital Signs: Last Vital Signs Pulse 75 04/16/24 15:04 BP 126/78 04/16/24 15:04 Pulse Ox 95 04/16/24 15:04 Oxygen Delivery Method Room Air 04/16/24 15:04 BMI result Body Mass Index 39.1 Const General: cooperative and healthy appearing Nutritional Appearance: obese Orientation/consciousness: patient oriented x3 Eyes Pupils: Equal, round and reactive pupils present Neuro Other: mallampatti grade 4 Tight jaws General: patient oriented x3, gait normal, tone normal, moves all extremities and no focal motor deficits Cranial nerves: Yes Facial sensation intact/muscles of mastication intact, Yes Equal, round and reactive pupils present, Yes Bilaterally intact EOM present, Yes Nystagmus not present, Yes Normal facial strength present, Yes Midline tongue present, Yes Symmetric palate elevation present and Yes Ability to bilaterally elevate shoulders present Cognition (Neuro): normal cognition Gait exam (Neuro): Normal gait present Motor exam (neuro): 5/5 motor strength present throughout and Normal motor muscle tone present throughout Deep tendon reflexes (DTR's): Right triceps reflex intensity grade: 2+, Left triceps reflex intensity grade: 2+, Rt Biceps (C5, C6): 2+, Left biceps reflex intensity grade: 2+, Right brachioradialis reflex intensity grade: 2+, Left brachioradialis reflex intensity grade: 2+, Right patellar reflex intensity grade: 2+ and Left patellar reflex intensity grade: 2+ Coordination: [id number] test normal Assessment & Plan Assessment & Plan (1) Chronic migraine without aura: Code(s): G43.709 - Chronic migraine without aura, not intractable, without status migrainosus Category: Medical Qualifiers: Status migrainosus presence: without status migrainosus Intractability: not intractable Qualified Code(s): G43.709 - Chronic migraine without aura, not intractable, without status migrainosus (2) Sleep related bruxism: Code(s): G47.63 - Sleep related bruxism Category: Medical (3) Snoring: Code(s): R06.83 - Snoring Category: Medical (4) Hypersomnia: Code(s): G47.10 - Hypersomnia, unspecified Category: Medical Plan She will benefit from treatment with botox for bruxism which is likely worsening her migraines. I will get prior auth and schedule her for treatment. Sleep study to evaluate for sleep apnea and bruxism. Magneisum 400mg qhs riboflavin 400mg qam Continue sumatriptan 100mg as needed CBT for chronic pain. Orders: Orders RT PSG in-lab sleep study Today G47.10 - Hypersomnia, unspecified, G47.63 - Sleep related bruxism, R06.83 - Snoring Medications: New magnesium oxide 400 mg PO BEDTIME 90 tabs 0RF riboflavin (vitamin B2) 400 mg PO QAM 90 tabs 0RF Coding Level of Care Code New Pt Level 4 (38449) Complex EM visit Add On G2211 Diagnoses Chronic migraine without aura without status migrainosus, not intractable G43.709 Status migrainosus presence: without status migrainosus Intractability: not intractable Sleep related bruxism G47.63 Snoring R06.83 Hypersomnia G47.10
== END 2024-04-16 15:43 | disposition home or self-care (01) ==
PROVIDERS: PCP Nurse Practitioner Family; Visit Provider Psychiatry & Neurology Neurology
DX: G43.709 Chronic migraine without aura, not intractable, without status migrainosus (principal); G47.63 Sleep related bruxism; R06.83 Snoring; G47.10 Hypersomnia, unspecified
CPT/HCPCS: 99204

== ENCOUNTER → 2024-05-14 11:17 | Outpatient (BNVA) | payer OTHER, SELFPAY | PROVIDERS: PCP Nurse Practitioner Family; Visit Provider Nurse Practitioner Family | DX: I10 Essential (primary) hypertension (principal); E55.9 Vitamin D deficiency, unspecified; M35.00 Sjogren syndrome, unspecified; H04.129 Dry eye syndrome of unspecified lacrimal gland | CPT/HCPCS: 96127 ==

== ENCOUNTER 2024-06-10 14:42 | Outpatient (REF) | payer OTHER, SELFPAY ==
[2024-06-10 17:24] LABS: Appearance Urine Cloudy; Color Urine Dark Yellow; Glucose Urine UA Negative (Negative); Leukocyte Esterase Urine Large (3+) (Negative); Nitrite Urine Negative (Negative); Specific Gravity - Urine 1.015 (1.005-1.025); UMIC TRIGGER UACC YES; Urine Blood Small (1+) (Negative); Urine Ketones Negative (Negative); Urine Protein Trace mg/dL (Neg-Trace)
[2024-06-10 17:39] LABS: Bacteria Urine None Seen (None Seen); Hyaline Casts Urine 0-2 /LPF (0-2); Squamous Epithelial Cell Urine 0-2 /HPF (0-2); UACC Culture Trigger YES; WBC Urine >50 /HPF (0-5)
--- OUTSIDE RECORDS SUMMARY | 2024-06-10 18:37 | XMS_ITS | Patient Health Record ---
Author Organization [facility] Address [address] [place] [address] Care Team Providers Care Pillow Filler Name Role Phone DORIAN BARNES Unavailable [phone] ALLERGIES Allergen (clinical drug ingredient) Drug/Non Drug Allergy documented on EMR Reaction Allergy Type Onset Date Status dissolving sutures & adhesive (uncoded) Unknown Allergy Active clindamycin Clindamycin Unknown Drug Allergy Act maria a prednisolone Prednisolone Unknown Drug Allergy A ctive procaine Procaine Unknown Drug Allergy Active REASON FOR REFERRAL No Information MEDICATIONS Medication SIG (Take, Route, Frequency, Duration) Notes Start Date End Date Status SUMAtriptan Succinate 100 MG TAKE 1 TABLET BY MOUTH TWICE DAILY FOR 15 DAYS Oral for 5 Active Ozempic (1 MG/DOSE) 4 MG/3ML 1mg Subcutaneous weekly for 30 days 09/28/2022 Active Vitamin B1 Active Metoprolol Succinate ER 25 MG TAKE 1 TABLET BY MOUTH DAILY Oral for 90 Active Amitriptyline HCl 25 MG TAKE 1 TABLET BY MOUTH DAILY Oral for 90 Active Citalopram Hydrobromide 10 MG TAKE 1 TABLET BY MOUTH DAILY Oral for 68 Active Vitamin B12 Active Multivitamin Active Ibuprofen 800 MG 1 tablet with food o r milk as needed Orally every 8 hrs Active Acidophilus Probiotic - as directed Orally Active oxyCODONE-Acetaminophen 5-325 MG Oral for 7 prn Active Irbesartan 75 MG TAKE 1 TABLET BY JAYCOB TH DAILY Oral for 90 Active Prevacid 30 MG 1 capsule before a m eal Orally Once a day Active Simvastatin 40 MG TAKE 1 TABLET BY JAYCOB TH AT BEDTIME Oral for 35 Active Lansoprazole 15 MG 1 capsule before a m eal Orally Once a day Active Terazosin HCl 1 MG Oral for 90 Active SOCIAL HISTORY Sex Assigned At : Social History Observation Description Sex Assigned At Unknown Alcohol Screen (Audit-C) Question Answer Notes Did you have a drink containing alcohol in the p ast year? No Points 0 Interpretation Negative Section Notes: Smokes cigarettes: 1/3 of a pack a day for 35 years PROBLEMS Problem Type ICD Code Onset Dates Problem Status W/U Status Risk SNOMED Code Notes Problem Other obesity due to excess calories (E66.09) Active confirmed 625889547 Problem Essential (primary) hypertension (I10) Active confirmed 11594354 Problem Pure hypercholesterole trena, unspecified (E78.00) Active confirmed 177170706 Problem Body mass index [BMI] 39.0-39.9, adult (Z68.39) Active confirmed 241460404 Problem Migraine without aura and without status migrainosus, not intractable (G43.009) Active confirmed 046740871 Problem Depression with anxiety (F41.8) Active confirmed [id number] PLAN OF TREATMENT No Information Insurance Providers Payer Name Payer Address Payer Phone Subscriber Number Group Number Insured Name Patient Relationship to Insured Coverage Start Date Coverage End Date Blue Benefits [place] [address] [address] [place] [address] [id number] Coby Stevens Self - patient is the insured MEDICAL (GENERAL) HISTORY Medical History History ICD Code hypertension hypercholesterolemia headache depression weight gain Surgical History Surgery Date(Month/Year) gastric bypass nose surgery foot surgery x 3
== END 2024-06-10 14:43 | disposition home or self-care (01) ==
LOC: HO.LAB 14:42
PROVIDERS: PCP Nurse Practitioner Family; Visit Provider Nurse Practitioner Family
DX: R30.0 Dysuria (principal)
CPT/HCPCS: 81001; 87086; 87088; 87186

== ENCOUNTER 2024-06-27 10:13 | Outpatient (REF) | payer OTHER, SELFPAY ==
--- NOTE | ~2024-06-27 | US_ITS ---
EXAMINATION: US RETROPERITONEUM HISTORY: R30.0 - Dysuria TECHNIQUE: Real-time grayscale ultrasound imaging of the kidneys was performed and images were reviewed. COMPARISON: There are no prior studies for comparison. FINDINGS: Right kidney: The right kidney measures 12.5 x 4.2 x 6.7 cm. Renal parenchymal echotexture and thickness are normal. There are no masses. There is no hydronephrosis or renal calculi. Left Kidney: The left kidney measures 12.5 x 5.4 x 6.0 cm. Renal parenchymal echotexture and thickness are normal. There are no masses. There is no hydronephrosis or renal calculi. The urinary bladder is unremarkable. Bilateral ureteral jets are identified. Before voiding, the urinary bladder measured 8.7 x 5.0 x 8.2 cm, for an estimated volume of 188 mL. After voiding, the urinary bladder measured 1.5 x 3.6 x 3.0 cm, for an estimated volume of 9 mL. US/US retroperitoneal comp IMPRESSION: Unremarkable renal ultrasound. Post void bladder residual of 9 mL. Electronically signed by: Golden Barbosa MD 06/27/2024 11:03 AM EDT
--- OUTSIDE RECORDS SUMMARY | 2024-06-27 12:02 | XMS_ITS | Patient Health Record ---
Author Organization [facility] Address [address] [place] [address] Care Team Providers Care Macerator Operator Name Role Phone DORIAN BARNES Unavailable [phone] ALLERGIES Allergen (clinical drug ingredient) Drug/Non Drug [...] due to excess calories (E66.09) Active confirmed 082563254 Problem Essential (primary) hypertension (I10) Active confirmed 13003684 Problem Pure hypercholesterole trena, unspecified (E78.00) Active confirmed 565860496 Problem Body mass index [BMI] 39.0-39.9, adult (Z68.39) Active confirmed 548048718 Problem Migraine without aura and without status migrainosus, not intractable (G43.009) Active confirmed 920851302 Problem Depression with anxiety (F41.8) Active confirmed [id number] PLAN OF TREATMENT No Information Insurance Providers Payer Name Payer Address Payer Phone Subscriber Number Group Number Insured Name Patient Relationship to Insured Coverage Start Date Coverage End Date Blue Benefits Admin [address] [address] [place] [address] [id number] Coby Stevens Self - patient is the insured MEDICAL (GENERAL) HISTORY Medical History History ICD Code hypertension hypercholesterolemia headache depression weight gain Surgical History Surgery Date(Month/Year) gastric bypass nose surgery foot surgery x 3
== END 2024-06-27 10:14 | disposition home or self-care (01) ==
LOC: HO.US 10:13
PROVIDERS: PCP Nurse Practitioner Family; Visit Provider Nurse Practitioner Family
DX: R30.0 Dysuria (principal)
CPT/HCPCS: 76770

== ENCOUNTER → 2024-06-27 10:14 | Outpatient (BNV) | payer OTHER, SELFPAY | PROVIDERS: PCP Nurse Practitioner Family; Visit Provider Radiology Diagnostic Radiology | DX: R30.0 Dysuria (principal) | CPT/HCPCS: 76770 ==

== ENCOUNTER → 2024-07-08 16:00 | Outpatient (BNV) | payer OTHER, SELFPAY | PROVIDERS: PCP Nurse Practitioner Family; Visit Provider Internal Medicine | DX: Z12.31 Encounter for screening mammogram for malignant neoplasm of breast (principal) | CPT/HCPCS: 77063; 77067 ==

== ENCOUNTER 2024-07-08 16:03 | Outpatient (REF) | payer OTHER, SELFPAY ==
--- NOTE | ~2024-07-08 | MM_ITS ---
EXAMINATION: MM SCREENING DIGITAL BREAST TOMOSYNTHESIS, BILATERAL CLINICAL INFORMATION: Screening. Asymptomatic. COMPARISON: Mammography: Comparison is made with available priors TECHNIQUE: Digital breast mammography with tomosynthesis is performed in both the craniocaudal and mediolateral oblique views along with computer-aided detection (CAD). FINDINGS: There are scattered areas of fibroglandular density (ACR BI-RADS breast composition Category b). There are no significant masses, abnormal calcifications, or other abnormalities. MM/MM tomosynthesis screening BI IMPRESSION: No mammographic evidence of malignancy. ASSESSMENT: BI-RADS BI-RADS 1 - Negative RECOMMENDATION: Routine annual mammography screening. 1 year F/U This examination should not preclude the clinical evaluation of a suspicious palpable abnormality. This patient's information was entered into a reminder system with a target due date for their next mammogram. Electronically signed by: Elena Melgoza DO 07/08/2024 05:42 PM EDT
--- OUTSIDE RECORDS SUMMARY | 2024-07-08 18:43 | XMS_ITS | Patient Health Record ---
Author Organization [facility] Address [address] [place] [address] Care Team Providers Care Transformation Analyst Name Role Phone DORIAN BARNES Unavailable [phone] ALLERGIES Allergen (clinical drug ingredient) Drug/Non Drug [...] due to excess calories (E66.09) Active confirmed 607018503 Problem Essential (primary) hypertension (I10) Active confirmed 19443761 Problem Pure hypercholesterole trena, unspecified (E78.00) Active confirmed 997380370 Problem Body mass index [BMI] 39.0-39.9, adult (Z68.39) Active confirmed 835219220 Problem Migraine without aura and without status migrainosus, not intractable (G43.009) Active confirmed 907952058 Problem Depression with anxiety (F41.8) Active confirmed [id number] PLAN OF TREATMENT No Information Insurance Providers Payer Name Payer Address Payer Phone Subscriber Number Group Number Insured Name Patient Relationship to Insured Coverage Start Date Coverage End Date Blue Benefits Admin [address] [address] [place] [address] [phone] [id number] Coby Stevens Self - patient is the insured MEDICAL (GENERAL) HISTORY Medical History History ICD Code hypertension hypercholesterolemia headache depression weight gain Surgical History Surgery Date(Month/Year) gastric bypass nose surgery foot surgery x 3
== END 2024-07-08 16:04 | disposition home or self-care (01) ==
LOC: HO.MAMMO 16:03
PROVIDERS: PCP Nurse Practitioner Family; Visit Provider Nurse Practitioner Family
DX: Z12.31 Encounter for screening mammogram for malignant neoplasm of breast (principal)
CPT/HCPCS: 77063; 77067

== ENCOUNTER 2024-07-15 10:20 | Outpatient (AMB) | payer OTHER, SELFPAY ==
--- NOTE | 2024-07-15 10:32 | A.OFFVIS_ITS ---
Intake Visit Reasons: Followup Intake Note: Patient is present for F/U Urology Medication:VITAMIN B2,VITAMIN B12, VITAMIN B1 Antibiotic Allergy:CLINDAMYCIN,ERTHROMYCIN Blood Thinner:NONE Retail Office Associate Required: No Allergies mold Allergy (Mild, Verified 07/15/24 10:34) SNEEZING prednisone [Prednisone] Allergy (Mild, Verified 07/15/24 10:34) NAUSEA & VOMITING losartan Allergy (Unknown, Verified 07/15/24 10:34) unknown clindamycin [CLINDAMYCIN] Adverse Reaction (Severe, Verified 07/15/24 10:34) C.DIFFICILE procaine [From Novocain] Adverse Reaction (Severe, Verified 07/15/24 10:34) NOVOCAIN WITH EPI CUSES PALPITATION erythromycin base [Erythromycin Base] Adverse Reaction (Mild, Verified 07/15/24 10:34) NAUSEA & VOMITING ? disolving stitches Allergy (Unknown, Uncoded 07/15/24 10:34) skin burn/ulceration adhesives Allergy (Unknown, Uncoded 07/15/24 10:34) skin burning, blisters HPI Comments Details: Coby is a very pleasant female. He is a patient Dr. Clarke. She seen for following urologic conditions - lower urinary tract symptoms - lack of bladder compliance with pelvic floor discomfort Twelve month follow-up Mentioned hormone replacement therapy as consideration based on symptomatology Lower urinary tract symptoms with urgency on coffee Did well on combination medication with amitriptyline at night and alpha-manuela Good response to alpha-manuela when symptomatic 07/28 cystoscopy showed collagen deposition Initial Pelvic exam with right-sided pelvic wall tightness, Discomfort midline behind bladder Twelve month review [facility] Medical History (Updated 06/10/24 @ 13:21 by DARON Hernadez-) Chronic migraine without aura Hypersomnia Snoring Sleep related bruxism Schamberg disease Skin lesion of neck Mucous cyst of toe Cyst, dermoid, face HTN (hypertension) Hyperplastic colon polyp (~2020) Obesity Smoker History of back pain Hx of seasonal allergies Hx of iron deficiency anemia Depression Anxiety High cholesterol Migraines Surgical History H/O tooth extraction Hx of bilateral oophorectomy History of colonoscopy (~2020) History of tubal ligation (~2006) History of gastric bypass (~2016) History of surgical removal of skin lesion (~2021) History of lymph node biopsy (~2017) History of blepharoplasty (~2014) History of colposcopy (~2008) History of tonsillectomy and adenoidectomy (~1985) History of surgical removal of ganglion cyst (~2011) History of foot surgery (~2014) History of bunionectomy of right great toe (~2011) History of nasal surgery (~2008) Hx of endoscopy Family History Father Hx of diabetes insipidus Mother Hx of diabetes insipidus Maternal Aunt Breast cancer Son No problems noted. Daughter No problems noted. Social History Household Members: None Housing: House Are you a primary child care education coordinator to a significant other at home: No Do you presently have visiting nurse or other home services: No Alcohol intake: never Comment: Patient states is tolerable Patient Tobacco Use Status: Current everyday Tobacco user Tobacco use type: Cigarette Cigarettes Per Day: 6 Years Smoked: 35 e-Cigarette/Vaping Use: Never Used Second Hand Smoke Exposure: No service: No Current occupational status: employed Current occupation: [employer] [place]- Cognitive needs: No Hearing needs: No Vision needs: Yes Female Reproductive History Menstrual Age of Menarche: 10 Results AMB Urinalysis, Automated UA Leukoctes 0 Apryl/uL Last Edit by MARISSA French on 07/15/24 11:07 UA Nitrite Negative Last Edit by MARISSA French on 07/15/24 11:07 UA Urobilinogen 0.2 mg/dL Last Edit by MARISSA French on 07/15/24 11:0 7 UA Protein 0 mg/dL Last Edit by MARISSA French on 07/15/24 11:07 UA pH 7.0 Last Edit by MARISSA French on 07/15/24 11:07 UA Blood 0 Edward/uL Last Edit by MARISSA French on 07/15/24 11:07 UA Specific [place] 1.005 Last Edit by MARISSA French on 07/15/24 11: 07 UA Ketone Negative Last Edit by MARISSA French on 07/15/24 11:07 UA Bilirubin 0 mg/dL Last Edit by MARISSA French on 07/15/24 11:07 UA Glucose 0 mg/dL Last Edit by MARISSA French on 07/15/24 11:07 Results Reviewed Results Reviewed: Laboratory Last Values Urine pH (Auto) 7.0 07/15/24 11:06 Specific [place] (Auto) 1.005 07/15/24 11:06 Urine Protein (Auto) 0 mg/dL 07/15/24 11:06 Glucose (UA)(Auto) 0 mg/dL 07/15/24 11:06 Urine Ketones (Auto) Negative 07/15/24 11:06 Urine Blood (Auto) 0 Edward/uL 07/15/24 11:06 Urine Nitrite (Auto) Negative 07/15/24 11:06 Urine Bilirubin (Auto) 0 mg/dL 07/15/24 11:06 Urine Urobilinogen (Auto) 0.2 mg/dL 07/15/24 11:06 Leukocyte Esterase (Auto) 0 Apryl/uL 07/15/24 11:06 Assessment & Plan Assessment & Plan Orders: Orders AMB Urinalysis Automated Today Z13.9 - Encounter for screening, unspecified Medications: New oxybutynin chloride ER 10 mg PO DAILY 30 days 30 tabs 1RF R30.0 - Dysuria Coding
--- OUTSIDE RECORDS SUMMARY | 2024-07-15 12:14 | XMS_ITS | Patient Health Record ---
Author Organization [facility] Address [address] [place] [address] Care Team Providers Care Geophysical Laboratory Director Name Role Phone DORIAN BARNES Unavailable [phone] ALLERGIES Allergen (clinical drug ingredient) Drug/Non Drug [...] due to excess calories (E66.09) Active confirmed 327631466 Problem Essential (primary) hypertension (I10) Active confirmed 17582127 Problem Pure hypercholesterole trena, unspecified (E78.00) Active confirmed 585026245 Problem Body mass index [BMI] 39.0-39.9, adult (Z68.39) Active confirmed 397085134 Problem Migraine without aura and without status migrainosus, not intractable (G43.009) Active confirmed 509728922 Problem Depression with anxiety (F41.8) Active confirmed 819198048 PLAN OF TREATMENT No Information Insurance Providers Payer Name Payer Address Payer Phone Subscriber Number Group Number Insured Name Patient Relationship to Insured Coverage Start Date Coverage End Date Blue Benefits [place] [address] [address] [place] [address] [id number] Coby Stevens Self - patient is the insured MEDICAL (GENERAL) HISTORY Medical History History ICD Code hypertension hypercholesterolemia headache depression weight gain Surgical History Surgery Date(Month/Year) gastric bypass nose surgery foot surgery x 3
== END 2024-07-15 12:02 | disposition home or self-care (01) ==
PROVIDERS: PCP Nurse Practitioner Family; Visit Provider Urology
DX: Z13.9 Encounter for screening, unspecified (principal)

== ENCOUNTER → 2024-07-15 10:20 | Outpatient (BNVA) | payer OTHER, SELFPAY | PROVIDERS: PCP Nurse Practitioner Family; Visit Provider Urology | DX: R33.9 Retention of urine, unspecified (principal); R35.0 Frequency of micturition | CPT/HCPCS: 81003 ==

== ENCOUNTER → 2024-09-10 10:19 | Outpatient (REF) | payer OTHER, SELFPAY ==
--- OUTSIDE RECORDS SUMMARY | 2024-09-10 11:00 | XMS_ITS | Patient Health Record ---
Author Organization [facility] Address [address] [place] [address] Care Team Providers Care Spinal Surgeon Name Role Phone DORIAN BARNES Unavailable [phone] Allergies Allergen (clinical drug ingredient) Drug/Non Drug Allergy documented on EMR Reaction Allergy Type Onset Date Status dissolving sutures & adhesive (uncoded) Unknown Allergy Active clindamycin Clindamycin Unknown Drug Allergy Act maria a prednisolone Prednisolone Unknown Drug Allergy A ctive procaine Procaine Unknown Drug Allergy Active Reason For Referral No Information Medications Medication SIG (Take, Route, Frequency, Duration) Notes [...] HCl 1 MG Oral for 90 Active Social History Alcohol Screen (Audit-C) Question Answer Notes Did you have a drink containing alcohol in the p ast year? No Points 0 Interpretation Negative Section Notes: Smokes cigarettes: 1/3 of a pack a day for 35 years Problems Problem Type SNOMED Code ICD Code Onset Dates Problem Status W/U Status Risk Notes Problem [id number] Other obesity du e to excess calories (E66.09) Active confirmed Problem 25857561 Essential (primary) hypertension (I10) Active confirmed Problem 378064311 Pure hypercholesterole trena, unspecified (E78.00) Active confirmed Problem 045236510 Body mass index [BMI] 39.0-39.9, adult (Z68.39) Active confirmed Problem 447987507 Migraine without aura and without status migrainosus, not intractable (G43.009) Active confirmed Problem 425450826 Depression with anxiety (F41.8) Active confirmed Plan Of Treatment No Information Insurance Providers Payer Name Payer Address Payer Phone Subscriber Number Group Number Insured Name Patient Relationship to Insured Coverage Start Date Coverage End Date Blue Benefits Admin [address] [address] [place] [address] [phone] [id number] Coby Stevens Self - patient is the insured Medical (General) History Medical History History ICD Code hypertension hypercholesterolemia headache depression weight gain Surgical History Surgery Date(Month/Year) gastric bypass nose surgery foot surgery x 3
== END ==
LOC: HO.SL 10:19
PROVIDERS: PCP Nurse Practitioner Family; Visit Provider Psychiatry & Neurology Neurology
DX: G47.10 Hypersomnia, unspecified (principal); R06.83 Snoring; G47.63 Sleep related bruxism
CPT/HCPCS: 95806

== ENCOUNTER 2024-09-16 13:34 | Outpatient (AMB) | payer OTHER, SELFPAY ==
--- NOTE | 2024-09-16 13:35 | A.OFFVIS_ITS ---
Intake Visit Reasons: 2M follow up Intake Note: Patient is present for 2M F/U Urology Medication:VITAMIN B2,VITAMIN B12,VITAMIN B1,OXYBUTYNIN Antibiotic Allergy:ERYTHROMYCIN Blood Thinner:NONE Payment Processor Required: No Allergies mold Allergy (Mild, Verified 09/16/24 13:36) SNEEZING prednisone [Prednisone] Allergy (Mild, Verified 09/16/24 13:36) NAUSEA & VOMITING losartan Allergy (Unknown, Verified 09/16/24 13:36) unknown clindamycin [CLINDAMYCIN] Adverse Reaction (Severe, Verified 09/16/24 13:36) C.DIFFICILE procaine [From Novocain] Adverse Reaction (Severe, Verified 09/16/24 13:36) NOVOCAIN WITH EPI CUSES PALPITATION erythromycin base [Erythromycin Base] Adverse Reaction (Mild, Verified 09/16/24 13:36) NAUSEA & VOMITING ? disolving stitches Allergy (Unknown, Uncoded 09/16/24 13:36) skin burn/ulceration adhesives Allergy (Unknown, Uncoded 09/16/24 13:36) skin burning, blisters HPI Comments Details: Coby is a very pleasant female. He is a patient Dr. Clarke. She seen for following urologic conditions - lower urinary tract symptoms - lack of bladder compliance with pelvic floor discomfort Telemedicine Evaluation 15 min Consultation [employer] Twelve month follow-up Would suggest topical estrogen pea sized amount right behind bladder Good response from oxybuytinin Lower urinary tract symptoms with urgency on coffee Did well on combination medication with amitriptyline at night and alpha-manuela Good response to alpha-manuela when symptomatic 07/28 cystoscopy showed collagen deposition Initial Pelvic exam with right-sided pelvic wall tightness, Discomfort midline behind bladder Twelve month review [facility] Medical History (Updated 06/10/24 @ 13:21 by DARON Hernadez-) Chronic migraine without aura Hypersomnia Snoring Sleep related bruxism Schamberg disease Skin lesion of neck Mucous cyst of toe Cyst, dermoid, face HTN (hypertension) Hyperplastic colon polyp (~2020) Obesity Smoker History of back pain Hx of seasonal allergies Hx of iron deficiency anemia Depression Anxiety High cholesterol Migraines Surgical History H/O tooth extraction Hx of bilateral oophorectomy History of colonoscopy (~2020) History of tubal ligation (~2006) History of gastric bypass (~2016) History of surgical removal of skin lesion (~2021) History of lymph node biopsy (~2017) History of blepharoplasty (~2014) History of colposcopy (~2008) History of tonsillectomy and adenoidectomy (~1985) History of surgical removal of ganglion cyst (~2011) History of foot surgery (~2014) History of bunionectomy of right great toe (~2011) History of nasal surgery (~2008) Hx of endoscopy Family History Father Hx of diabetes insipidus Mother Hx of diabetes insipidus Maternal Aunt Breast cancer Son No problems noted. Daughter No problems noted. Social History Household Members: None Housing: House Are you a primary clinical manager home care to a significant other at home: No Do you presently have visiting nurse or other home services: No Alcohol intake: never Comment: Patient states is tolerable Patient Tobacco Use Status: Current everyday Tobacco user Tobacco use type: Cigarette Cigarettes Per Day: 6 Years Smoked: 35 e-Cigarette/Vaping Use: Never Used Second Hand Smoke Exposure: No service: No Current occupational status: employed Current occupation: [employer]- Cognitive needs: No Hearing needs: No Vision needs: Yes Female Reproductive History Menstrual Age of Menarche: 10 Review of Systems Const All systems reviewed & are unremarkable except as noted in HPI and below Reports no additional complaints Resp Reports no additional complaints GI Reports no additional complaints Reports as per HPI Musc Reports no additional complaints Physical Exam Telemedicine evaluation Appropriate responses Regular breathing rate and rhythm HEENT Head: Yes normal to inspection Ears: hearing grossly normal bilaterally Eyes General: appearance normal, both eyes and all related structures Neck Neck: Yes normal visual inspection Chest Chest palpation & inspection: normal inspection of the chest Resp Effort & Inspection: normal respiratory effort and able to speak in complete sentences Telehealth Telehealth Location of provider rendering services: practice address Location of patient: address on file Patient Identification confirmed using: Name, : Yes Telehealth method: voice only Patient verbally consented to treatment: Yes Patient verbally consented to billing insurance company: Yes Patient informed of any privacy concerns related to visit: Yes Assessment & Plan Assessment & Plan (1) Dysuria: Code(s): R30.0 - Dysuria Category: Medical (2) Urine frequency: Code(s): R35.0 - Frequency of micturition Category: Medical Plan Twelve month follow-up Refill oxybutynin Medications: Changed From oxybutynin chloride ER 10 mg PO DAILY 30 days 30 tabs 1RF R30.0 - Dysuria To oxybutynin chloride ER 10 mg PO DAILY 90 days 90 tabs 3RF R30.0 - Dysuria Patient Instructions: This note is constructed using voice recognition software. While every effort has been made to ensure accuracy toy assembler errors may have been included. Imaging studies, laboratory and physical exam results were discussed and reviewed in detail. No major barriers to patient understanding were identified. An opportunity to ask questions regarding the treatment plan was provided. All questions were answered. The patient expressed understanding and agreement with the above treatment plan. The patient is aware they should contact our office by phone for worsening of their current condition or the appearance of new urologic symptoms. Compliance is encouraged with any medications and followup testing that is ordered. It is a privilege to participate in the urologic care of your patient. If you have any questions or concerns regarding treatment for the above conditions, or other urologic issues, please do not hesitate to contact me. The office telephone contact is [phone]. Sincerely, Dr Nicola Velasquez MD, [facility] - Urology Compassionate Specialist Care for the Genitourinary System Coding Level of Care Code Tele Est Pt Level 4 (49894) Diagnoses Dysuria R30.0 Urine frequency R35.0
== END 2024-09-16 14:52 | disposition home or self-care (01) ==
LOC: HO.HUSH 13:34
PROVIDERS: PCP Nurse Practitioner Family; Visit Provider Urology
DX: R30.0 Dysuria (principal); R35.0 Frequency of micturition
CPT/HCPCS: 99214

== ENCOUNTER 2024-10-02 09:46 | Outpatient (REF) | payer OTHER, SELFPAY ==
[2024-10-02 10:10] LABS: MANUAL DIFF FLAG NO
[2024-10-02 10:21] LABS: Basophils Absolute Auto 0.1 X10*3/uL (0.0-0.2); Eosinophils Absolute Auto 0.3 X10*3/uL (0.0-0.4); Eosinophils Percent Auto 4.2 % (0-4); Hematocrit 41.2 % (37.0-47.0); Hemoglobin 14.4 g/dl (12.0-16.0); Imm Gran Abs Auto 0.02 X10*3/uL (0.00-0.03); Imm Gran Pct Auto 0.3 % (0.0-0.4); Lymphocytes Absolute Auto 1.9 X10*3/uL (1.2-4.9); Lymphocytes Percent Auto 26.4 % (20-40); Mean Corpuscular Hemoglobin 29.7 pg (27.0-33.0); Mean Corpuscular Volume 84.9 fL (80.0-98.0); Mean Platelet Volume 9.2 fL (9.4-12.3); Monocytes Absolute Auto 0.5 X10*3/uL (0.1-1.2); Monocytes Percent Auto 6.5 % (2-11); Neutrophils Absolute Auto 4.4 x10*3/uL (2.0-8.3); Neutrophils Percent Auto 61.6 % (45-73); Platelet Count 300 X10*3/uL (160-400); Red Blood Count 4.85 X10*6/uL (4.20-5.50); Red Cell Distribution Width 13.1 % (11.0-16.0); White Blood Count 7.1 X10*3/uL (4.8-10.8)
[2024-10-02 10:51] LABS: Alanine Aminotransferase 18 U/L (0-31); Albumin Level 4.5 g/dL (3.5-5.0); Alkaline Phosphatase 65 U/L (39-117); Anion Gap 13 (12-20); Aspartate Amino Transferase 28 U/L (5-31); Bilirubin Total 0.4 mg/dL (0.0-1.0); Blood Urea Nitrogen 13 mg/dL (9-16); Calcium 9.8 mg/dL (8.4-10.2); Carbon Dioxide 26 mmol/L (22-29); Chloride 105 mmol/L (96-108); Cholesterol 179 mg/dL (<200); Estimated Glomerular Filt Rate > 60; Glucose Fasting 94 mg/dL (60-99); HDL Cholesterol 38 mg/dL (>40); Iron 101 mcg/dL (30-160); LDL Cholesterol Calculated 100 mg/dL (<100); Percent Iron Saturation 35 % (15-50); Potassium 4.1 mmol/L (3.3-5.1); Sodium 140 mmol/L (135-145); Total Iron Binding Capacity 288 mcg/dL (228-428); Triglycerides 206 mg/dL (<150); Unsaturated Iron Binding 187 ug/dL
--- OUTSIDE RECORDS SUMMARY | 2024-10-02 11:02 | XMS_ITS | Patient Health Record ---
Author Organization [facility] [address] Address [address] [place] [address] Care Team Providers Care Knit Goods Mender Name Role Phone DORIAN BARNES Unavailable [phone] Allergies Allergen (clinical drug ingredient) Drug/Non Drug [...] BY MOUTH TWICE DAILY FOR 15 DAYS Oral; Duration: 5 Active Ozempic (1 MG/DOSE) 4 MG/3ML 1mg Subcutaneous weekly; Duration: 30 days 09/28/2022 Active Vitamin B1 Active Metoprolol Succinate ER 25 MG TAKE 1 TABLET BY MOUTH DAILY Oral; Duration: 90 Active Amitriptyline HCl 25 MG TAKE 1 TABLET BY MOUTH DAILY Oral; Duration: 90 Active Citalopram Hydrobromide 10 MG TAKE 1 TABLET BY MOUTH DAILY Oral; Duration: 68 Active Vitamin B12 Active Multivitamin Active Ibuprofen 800 MG 1 tablet with food o r milk as needed Orally every 8 hrs Active Acidophilus Probiotic - as directed Orally Active oxyCODONE-Acetaminophen 5-325 MG Oral; Duration: 7 prn Active Irbesartan 75 MG TAKE 1 TABLET BY JAYCOB TH DAILY Oral; Duration: 90 Active Prevacid 30 MG 1 capsule before a m eal Orally Once a day Active Simvastatin 40 MG TAKE 1 TABLET BY JAYCOB TH AT BEDTIME Oral; Duration: 35 Active Lansoprazole 15 MG 1 capsule before a m eal Orally Once a day Active Terazosin HCl 1 MG Oral; Duration: 90 Active Social History Alcohol Screen (Audit-C) Question Answer Notes Did you have a drink containing alcohol in the p ast year? No Points 0 Interpretation Negative Section Notes: Smokes cigarettes: 1/3 of a pack a day for 35 years Problems Problem Type SNOMED Code ICD Code Onset Dates Problem Status W/U Status Risk Notes Problem Obesity due to exces s calories (593227466) Other obesity due to excess calories (E66.09) Active confirmed Problem Essential hypertensi on (82418613) Essential (primary) hypertension (I10) Active confirmed Problem Pure hypercholesterolemia (395445172) Pure hypercholester olemia, unspecified (E78.00) Active confirmed Problem Body mass index 35.0 0 to 39.99 (649457429549977) Body mass index [BMI] 39.0-39.9, adult (Z68.39) Active confirmed Problem Migraine without aur a, not refractory (149750440) Migraine without aura and without status migrainosus, not intractable (G43.009) Active confirmed Problem Mixed anxiety and depressive disorder (947169910) Depression with anxiety (F41.8) Active confirmed Plan Of Treatment No Information Insurance Providers Payer Name Payer Address Payer Phone Subscriber Number Group Number Insured Name Patient Relationship to Insured Coverage Start Date Coverage End Date Blue Benefits Admin [address] [address] [place] [address] [phone] [id number] Coby Stevens Self - patient is the insured Medical (General) History Medical History History ICD Code hypertension hypercholesterolemia headache depression weight gain Surgical History Surgery Date(Month/Year) gastric bypass nose surgery foot surgery x 3
[2024-10-02 11:09] LABS: Ferritin 23 ng/mL (10-250); TSH reflex Free T4 0.96 uIU/mL (0.32-4.0); Vitamin D 25-OH Total 46.6 ng/mL (>30)
[2024-10-02 11:16] LABS: Folate 15.4 ng/mL (> or = 4.0); Vitamin B12 745 pg/mL (200-900)
[2024-10-02 11:55] LABS: Appearance Urine Clear; Color Urine Yellow; Glucose Urine UA Negative (Negative); Leukocyte Esterase Urine Negative (Negative); Nitrite Urine Negative (Negative); PH 8.5 (5.0-9.0); Urine Blood Negative (Negative); Urine Ketones Negative (Negative); Urine Protein Negative (Neg-Trace)
[2024-10-03 12:03] LABS: Lyme Abs Screen <0.90 index
[2024-10-03 17:44] LABS: Antibody to SS-A Antigen <1.0 NEG AI (<1.0 NEG); Antibody to SS-B Antigen <1.0 NEG AI (<1.0 NEG)
[2024-10-04 17:29] LABS: A. Phagocytphilium DNA,RT-PCR NOT DETECTED (NOT DETECTED); Babesia Microti DNA, RT-PCR NOT DETECTED (NOT DETECTED); Borrelia Miyamotoi,DNA RT-PCR NOT DETECTED (NOT DETECTED); E.Chaffeensis DNA RT-PCR NOT DETECTED (NOT DETECTED); Lyme(Borrelia ssp)DNA RT-PCR NOT DETECTED (NOT DETECTED)
== END 2024-10-02 09:47 | disposition home or self-care (01) ==
LOC: HO.LAB 09:46
PROVIDERS: PCP Nurse Practitioner Family; Visit Provider Nurse Practitioner Family
DX: I10 Essential (primary) hypertension (principal); R53.83 Other fatigue; E53.8 Deficiency of other specified B group vitamins; H04.129 Dry eye syndrome of unspecified lacrimal gland; E55.9 Vitamin D deficiency, unspecified
CPT/HCPCS: 36415; 80053; 80061; 81003; 82306; 82607; 82728; 82746; 83540; 84443; 85025; 86235; 86617; 86618; 87468; 87469; 87478; 87484; 87798

== ENCOUNTER 2024-10-06 14:56 | Outpatient (AMB) | payer OTHER, SELFPAY ==
[2024-10-06 15:02] VITALS: BP 102/70; PULSE 67; RESP 16; TEMP 36.7; O2SAT 96; BMI 38.8
--- NOTE | 2024-10-06 15:02 | A.OFFPC_ITS ---
Vital Signs 10/06/24 15:02 Height 5 ft 3 in Weight 219 lb BMI 38.8 BP 102/70 Blood Pressure Location Rt brachial Position Sitting Respiration 16 Pulse 67 Pulse Source Pulse Oximeter Temp 98.1 F Temp Source Oral Pulse Oximetry (%) 96 Intake Visit Reasons: ANNUAL PE Intake Note: Pt is here today for her PE Allergies mold Allergy (Mild, Verified 10/06/24 15:03) SNEEZING prednisone (Prednisone) Allergy (Mild, Verified 10/06/24 15:03) NAUSEA & VOMITING losartan Allergy (Unknown, Verified 10/06/24 15:03) unknown clindamycin (CLINDAMYCIN) Adverse Reaction (Severe, Verified 10/06/24 15:03) C.DIFFICILE procaine (From Novocain) Adverse Reaction (Severe, Verified 10/06/24 15:03) NOVOCAIN WITH EPI CUSES PALPITATION erythromycin base (Erythromycin Base) Adverse Reaction (Mild, Verified 10/06/24 15:03) NAUSEA & VOMITING ? disolving stitches Allergy (Unknown, Uncoded 10/06/24 15:03) skin burn/ulceration adhesives Allergy (Unknown, Uncoded 10/06/24 15:03) skin burning, blisters Tobacco use date assessed: 10/06/24 Dental Screening Dental Screen Date: 10/06/24 Did you have a dental visit in the last 12 months?: Yes Did you have a dental problem in the last 6 months where you did not have access to dental care?: Yes Was dental information given to patient?: Patient has dentist HPI ANNUAL PE HPI Details History of Present Illness The patient is a 54-year-old female presenting with chest discomfort and for preventative care evaluation. She reports chest discomfort radiating to her thoracic back, without associated nausea, vomiting, jaw pain, or discomfort in the upper extremities. She denies shortness of breath, blood in stool, constipation, or diarrhea. The patient smokes half a pack of cigarettes daily and has declined low-dose CT scans for lung cancer screening. Her preventative care measures are current, including mammogram, Pap smear, and colonoscopy. Labs were already complete Health Maintenance - Mammogram up-to-date - Pap smear up-to-date - Colonoscopy up-to-date Social History - Smoking: Smokes half a pack of cigaret ajay per day Review of Systems - Cardiovascular: Reports chest discomfo rt radiating to the back. Denies jaw pain or discomfort in upper extremities. - Gastrointestinal: Denies nausea, vomit ing, blood in stool, constipation, or diarrhea. - Respiratory: Denies shortness of breat h. Physical Exam General: Cooperative, healthy appearing, comfortable, no acute distress and well developed, obese Orientation: Patient oriented x3 Limitations: No limitations Head: Normal to inspection Ears: Hearing grossly normal bilaterally Nose: Normal external nose present Face and sinus: Normal facial exam Eyes: Appearance normal, both eyes and all related structures Neck: Normal visual inspection and Yes full ROM Respiratory: Normal respiratory effort and able to speak in complete sentences. Clear to auscultation bilaterally Cardiovascular: Regular rate and rhythm. Normal S1 and S2 GI: Normal to inspection. Soft to palpation and nontender Skin: No rashes or lesions noted Neuro: Patient oriented x3 Extremities: Normal to inspection. turning upper torso without exacerbation of thoracic back pain Results Plan The patient will have an EKG performed to assess the chest discomfort. Additionally, an upper abdominal epigastric ultrasound is scheduled to explore the cause of her symptoms. Discussion Notes I discussed with the patient the plan to perform an EKG and an upper abdominal epigastric ultrasound to evaluate her chest discomfort. We also reviewed her current smoking habits and the importance of lung cancer screening, although she declined the low-dose CT scan. Echo also ordered Patient Instructions - Follow up with results of the EKG and ultrasound. - Consider smoking cessation resources. [facility] Medical History Chronic migraine without aura Hypersomnia Snoring Sleep related bruxism Schamberg disease Skin lesion of neck Mucous cyst of toe Cyst, dermoid, face HTN (hypertension) Hyperplastic colon polyp (~2020) Obesity Smoker History of back pain Hx of seasonal allergies Hx of iron deficiency anemia Depression Anxiety High cholesterol Migraines Surgical History H/O tooth extraction Hx of bilateral oophorectomy History of colonoscopy (~2020) History of tubal ligation (~2006) History of gastric bypass (~2016) History of surgical removal of skin lesion (~2021) History of lymph node biopsy (~2017) History of blepharoplasty (~2014) History of colposcopy (~2008) History of tonsillectomy and adenoidectomy (~1985) History of surgical removal of ganglion cyst (~2011) History of foot surgery (~2014) History of bunionectomy of right great toe (~2011) History of nasal surgery (~2008) Hx of endoscopy Family History Father Hx of diabetes insipidus Mother Hx of diabetes insipidus Maternal Aunt Breast cancer Son No problems noted. Daughter No problems noted. Social History Household Members: None Housing: House Are you a primary direct support professional caregiver to a significant other at home: No Do you presently have visiting nurse or other home services: No Alcohol intake: never Comment: Patient states is tolerable Patient Tobacco Use Status: Current everyday Tobacco user Tobacco use type: Cigarette Cigarettes Per Day: 6 Years Smoked: 35 e-Cigarette/Vaping Use: Never Used Second Hand Smoke Exposure: No service: No Current occupational status: employed Current occupation: [employer]- Cognitive needs: No Hearing needs: No Vision needs: Yes Female Reproductive History Menstrual Age of Menarche: 10 Questionnaire Thrive Questionnaire Date Thrive assessed: 05/12/24 I am a: Patient What is your living situation today?: I have a steady place to live Within the past 12 months, did the food you bought not last and you didn't have the money to get more?: Never true Within the past 12 months, did you worry whether your food would run out before you got money to buy more?: Never true Do you have trouble paying for medicines?: No Do you have trouble getting transportation to medical appointments?: No Do you have trouble paying your heating and electricity bill?: No Do you have trouble taking care of your child, family member or friend?: No Do you have trouble with day-to-day activities such as bathing, preparing meals, shopping, managing finances, etc.?: No Are you currently unemployed and looking for a job?: No Are you interested in more education?: No Please select the resources that you would like help with: None Currently or been in a relationship where the following occur: No concerns reported THRIVE Score: 0 BARB-7 AMB Questionnaire BARB-7 Date BARB - 7 assessed: 05/14/24 Source: Developed by Drs. Golden Dunn, Shabnam Cortez, Sam Hernandes and colleagues, with an educational kieran from [employer]. Physical exam (Primary Care) Vital Signs: Last Vital Signs Temp 98.1 F 10/06/24 15:02 Pulse 67 10/06/24 15:02 Resp 16 10/06/24 15:02 BP 102/70 10/06/24 15:02 Pulse Ox 96 10/06/24 15:02 BMI result Body Mass Index 38.8 Tobacco/Smoking Status: Tobacco use Status Tobacco use date assessed 10/06/24 10/06/24 15:08 Patient Tobacco Use Status Current everyday Tobacco 10/06/24 15:08 Tobacco use type Cigarette 10/06/24 15:08 e-Cigarette/Vaping Use Never Used 10/06/24 15:08 Thrive Assessment: Date of Thrive Assessment Date Thrive assessed 05/12/24 10/06/24 15:08 Currently or been in a relationship where the following occur: No concerns reported Coding Level of Care Code Est Pt Prev Care 40-64y(96772) Diagnoses Epigastric pain R10.13 Chest discomfort R07.89 Encounter for routine adult physical exam with abnormal findings Z00.01 Thoracic back pain M54.6 Smoker F17.200 Obesity E66.9 Assessment & Plan Assessment & Plan (1) Epigastric pain: Code(s): R10.13 - Epigastric pain Category: Medical (2) Chest discomfort: Code(s): R07.89 - Other chest pain Category: Medical (3) Encounter for routine adult physical exam with abnormal findings: Code(s): Z00.01 - Encounter for general adult medical examination with abnormal findings Category: Medical (4) Thoracic back pain: Code(s): M54.6 - Pain in thoracic spine Category: Medical (5) Smoker: Comment: (1/2ppd) Code(s): F17.200 - Nicotine dependence, unspecified, uncomplicated Category: Social Hx (6) Obesity: Code(s): E66.9 - Obesity, unspecified Category: Medical Plan . Orders: Orders US abdomen complete Today R10.13 - Epigastric pain AMB EKG-In Office Today R07.89 - Other chest pain XR thoracic spine 2V Today M54.6 - Pain in thoracic spine CA echo transthoracic complete Today E66.9 - Obesity, unspecified, F17.200 - Nicotine dependence, unspecified, uncomplicated, R07.89 - Other chest pain Medications: Refilled oxycodone-acetaminophen 5-325 mg (Percocet) 1 tab PO ONCE PRN 7 tabs 0RF pain 7 days
--- OUTSIDE RECORDS SUMMARY | 2024-10-06 15:24 | XMS_ITS | Patient Health Record ---
Author Organization [facility] [address] Address [address] [place] [address] Care Team Providers Care Print Shop Manager Name Role Phone DORIAN BARNES Unavailable [phone] Allergies Allergen (clinical drug ingredient) Drug/Non Drug [...] Problem Obesity due to exces s calories (449732174) Other obesity due to excess calories (E66.09) Active confirmed Problem Essential hypertensi on (83203387) Essential (primary) hypertension (I10) Active confirmed Problem Pure hypercholesterolemia (225894910) Pure hypercholester olemia, unspecified (E78.00) Active confirmed Problem Body mass index 35.0 0 to 39.99 (421929273221658) Body mass index [BMI] 39.0-39.9, adult (Z68.39) Active confirmed Problem Migraine without aur a, not refractory (770916615) Migraine without aura and without status migrainosus, not intractable (G43.009) Active confirmed Problem Mixed anxiety and depressive disorder (954118682) Depression with anxiety (F41.8) Active confirmed Plan Of Treatment No Information Insurance Providers Payer Name Payer Address Payer Phone Subscriber Number Group Number Insured Name Patient Relationship to Insured Coverage Start Date Coverage End Date Blue Benefits Admin [address] [address] [place] [address] [id number] Coby Stevens Self - patient is the insured Medical (General) History Medical History History ICD Code hypertension hypercholesterolemia headache depression weight gain Surgical History Surgery Date(Month/Year) gastric bypass nose surgery foot surgery x 3
== END 2024-10-06 16:00 | disposition home or self-care (01) ==
LOC: HO.HMCC 14:57
PROVIDERS: PCP Nurse Practitioner Family; Visit Provider Nurse Practitioner Family
DX: Z00.01 Encounter for general adult medical examination with abnormal findings (principal); E66.9 Obesity, unspecified; Z68.38 Body mass index [BMI] 38.0-38.9, adult; R10.13 Epigastric pain; R07.89 Other chest pain; M54.6 Pain in thoracic spine; F17.200 Nicotine dependence, unspecified, uncomplicated

== ENCOUNTER → 2024-10-06 14:56 | Outpatient (BNVA) | payer OTHER, SELFPAY | PROVIDERS: PCP Nurse Practitioner Family; Visit Provider Nurse Practitioner Family | DX: Z13.89 Encounter for screening for other disorder (principal) ==

== ENCOUNTER 2024-10-13 15:09 | Outpatient (REF) | payer OTHER, SELFPAY ==
--- NOTE | ~2024-10-13 | XR_ITS ---
EXAMINATION: XR THORACIC SPINE CLINICAL INFORMATION: M54.6 - Pain in thoracic spine COMPARISON: Chest x-ray September 06, 2016 TECHNIQUE: 3 views of the thoracic spine were obtained. FINDINGS: Anterior osteophytes have increased in size the prior. There is mild wedging of a lower thoracic vertebral body, similar to the prior chest x-ray. There is no listhesis. There is mild levoscoliosis. XR/XR thoracic spine 2V IMPRESSION: Increasing anterior osteophytes and mild levoscoliosis of thoracic spine. Electronically signed by: Aris Dominique MD 10/13/2024 03:31 PM EDT
--- OUTSIDE RECORDS SUMMARY | 2024-10-13 15:31 | XMS_ITS | Patient Health Record ---
Author Organization [facility] [address] Address [address] [place] [address] Care Team Providers Care Wellness Nurse Rn Name Role Phone DORIAN BARNES Unavailable [phone] Allergies Allergen (clinical drug ingredient) Drug/Non Drug [...] Problem Obesity due to exces s calories (974126254) Other obesity due to excess calories (E66.09) Active confirmed Problem Essential hypertensi on (93714323) Essential (primary) hypertension (I10) Active confirmed Problem Pure hypercholesterolemia (560401921) Pure hypercholester olemia, unspecified (E78.00) Active confirmed Problem Body mass index 35.0 0 to 39.99 (657576240761755) Body mass index [BMI] 39.0-39.9, adult (Z68.39) Active confirmed Problem Migraine without aur a, not refractory (105861438) Migraine without aura and without status migrainosus, not intractable (G43.009) Active confirmed Problem Mixed anxiety and depressive disorder (202361844) Depression with anxiety (F41.8) Active confirmed Plan Of Treatment No Information Insurance Providers Payer Name Payer Address Payer Phone Subscriber Number Group Number Insured Name Patient Relationship to Insured Coverage Start Date Coverage End Date Blue Benefits Admin [address] [address] [place] [address] [id number] Coby Stevens Self - patient is the insured Medical (General) History Medical History History ICD Code hypertension hypercholesterolemia headache depression weight gain Surgical History Surgery Date(Month/Year) gastric bypass nose surgery foot surgery x 3
== END 2024-10-13 15:10 | disposition home or self-care (01) ==
LOC: HO.LAB 15:09
PROVIDERS: PCP Nurse Practitioner Family; Visit Provider Nurse Practitioner Family
DX: M25.78 Osteophyte, vertebrae (principal); M41.84 Other forms of scoliosis, thoracic region
CPT/HCPCS: 72070

== ENCOUNTER → 2024-10-13 15:12 | Outpatient (BNV) | payer OTHER, SELFPAY | PROVIDERS: PCP Nurse Practitioner Family; Visit Provider Radiology Diagnostic Radiology | DX: M25.78 Osteophyte, vertebrae (principal) | CPT/HCPCS: 72070 ==

== ENCOUNTER 2024-10-14 10:16 | Outpatient (REF) | payer OTHER, SELFPAY ==
--- NOTE | ~2024-10-14 | US_ITS ---
CLINICAL HISTORY: R10.13 - Epigastric pain US abdomen complete Comparison: 06/27/2024 Findings: The visualized pancreas is normal. The aorta and inferior vena cava are normal caliber. The liver is normal in size and echotexture. Right hepatic lobe measures 13.1 cm in length. There is no intrahepatic bile duct dilatation. The common duct is 3 mm in diameter. No gallstone. Distended gallbladder with mild sludge. There is no sonographic Gonzalez sign. The main portal vein is antegrade. The right kidney is 12.7 cm in length. The left kidney is 12.1 cm in length. Unremarkable kidneys. The spleen is normal. Spleen measures 10 cm in length. No ascites. IMPRESSION: Mild gallbladder sludge. This document has been electronically signed by: Marni Crowe MD on 10/14/2024 12:29:23
--- OUTSIDE RECORDS SUMMARY | 2024-10-14 11:06 | XMS_ITS | Patient Health Record ---
Author Organization [facility] [address] Address [address] [place] [address] Care Team Providers Care Stylist Apprentice Name Role Phone DORIAN BARNES Unavailable [phone] Allergies Allergen (clinical drug ingredient) Drug/Non Drug [...] Problem Obesity due to exces s calories (448741020) Other obesity due to excess calories (E66.09) Active confirmed Problem Essential hypertensi on (94502448) Essential (primary) hypertension (I10) Active confirmed Problem Pure hypercholesterolemia (874990581) Pure hypercholester olemia, unspecified (E78.00) Active confirmed Problem Body mass index 35.0 0 to 39.99 (918118172525293) Body mass index [BMI] 39.0-39.9, adult (Z68.39) Active confirmed Problem Migraine without aur a, not refractory (175250210) Migraine without aura and without status migrainosus, not intractable (G43.009) Active confirmed Problem Mixed anxiety and depressive disorder (135526072) Depression with anxiety (F41.8) Active confirmed Plan Of Treatment No Information Insurance Providers Payer Name Payer Address Payer Phone Subscriber Number Group Number Insured Name Patient Relationship to Insured Coverage Start Date Coverage End Date Blue Benefits Admin [address] [address] [place] [address] [phone] [id number] Coby Stevens Self - patient is the insured Medical (General) History Medical History History ICD Code hypertension hypercholesterolemia headache depression weight gain Surgical History Surgery Date(Month/Year) gastric bypass nose surgery foot surgery x 3
== END 2024-10-14 10:17 | disposition home or self-care (01) ==
LOC: HO.US 10:16
PROVIDERS: Visit Provider Nurse Practitioner Family
DX: R10.13 Epigastric pain (principal)
CPT/HCPCS: 76700

== ENCOUNTER → 2024-10-14 10:20 | Outpatient (BNV) | payer OTHER, SELFPAY | PROVIDERS: Visit Provider Radiology Diagnostic Radiology | DX: R10.13 Epigastric pain (principal) | CPT/HCPCS: 76700 ==

== ENCOUNTER → 2024-11-07 13:43 | Outpatient (REF) | payer OTHER, SELFPAY ==
--- OUTSIDE RECORDS SUMMARY | 2024-11-07 13:46 | XMS_ITS | Patient Health Record ---
Author Organization [facility] [address] Address [address] [place] [address] Care Team Providers Care Sales Center Associate Name Role Phone DORIAN BARNSE Unavailable [phone] Allergies Allergen (clinical drug ingredient) Drug/Non Drug [...] Problem Obesity due to exces s calories (531699097) Other obesity due to excess calories (E66.09) Active confirmed Problem Essential hypertensi on (75905838) Essential (primary) hypertension (I10) Active confirmed Problem Pure hypercholesterolemia (984919693) Pure hypercholester olemia, unspecified (E78.00) Active confirmed Problem Body mass index 35.0 0 to 39.99 (705558908491419) Body mass index [BMI] 39.0-39.9, adult (Z68.39) Active confirmed Problem Migraine without aur a, not refractory (312540067) Migraine without aura and without status migrainosus, not intractable (G43.009) Active confirmed Problem Mixed anxiety and depressive disorder (419812968) Depression with anxiety (F41.8) Active confirmed Plan Of Treatment No Information Insurance Providers Payer Name Payer Address Payer Phone Subscriber Number Group Number Insured Name Patient Relationship to Insured Coverage Start Date Coverage End Date Blue Benefits [place] [address] [address] [place] [address] [id number] Coby Stevens Self - patient is the insured Medical (General) History Medical History History ICD Code hypertension hypercholesterolemia headache depression weight gain Surgical History Surgery Date(Month/Year) gastric bypass nose surgery foot surgery x 3
--- NOTE | 2024-11-07 13:47 | CA_ITS ---
Transthoracic Echocardiogram Patient (Last, First, Middle): Coby Stevens M Gender: Female Date of : 1970 Age: 54 Procedure Date: 11/07/2024 Procedure Type: Transthoracic Echocardiogram Location: OP Height: 160.02 cm Weight: 99.79 kg BSA: 2.01 m2 Heart Rate: bpm BP: 130 / 80 mmHg Color Finisher: Referring MD: Cheo Lowry [facility] Subsurface Augmentee Elint Operator: Mikey Olson MD Symptoms: R07.89 - Other chest pain Study Quality: Fair ECG Rhythm: Sinus Conclusions: - 1. Normal LV ejection fraction of 60 65% with moderately increased LV wall thickness with grade 1 diastolic dysfunction 2. Normal cardiac valvular Dopplers 3. Normal measured RV systolic pressure 4. No gross pericardial effusion Findings Left Ventricle Normal left ventricular size and systolic function. There is moderately increased left ventricular wall thickness. The visually estimated ejection fraction is between 60-65%. Spectral Doppler is indicative of an impaired relaxation filling pattern. E/E prime ratio is <8, consistent with normal filling pressures. Evidence suggests grade I (mild) diastolic dysfunction. There is severe septal asymmetric hypertrophy. Right Ventricle Normal right ventricular cavity size. There is normal right ventricular systolic function. Atria The left atrium is normal in size. Interatrial shunt cannot be excluded. The right atrium is normal in size. Aortic Valve Normal aortic valve structure and function. There is no aortic valve stenosis. There is no aortic valve regurgitation. Mitral Valve Normal mitral valve structure and function. There is trace mitral valve regurgitation. There is no mitral valve stenosis. Pulmonic Valve The pulmonic valve is likely normal. Tricuspid Valve Likely normal tricuspid valve structure and function. There is trace tricuspid valve regurgitation. The right ventricular systolic pressure is normal. The right ventricular systolic pressure is 19 mmHg. Normal right atrial pressure. There is no evidence of pulmonary hypertension. Great Vessels All visible segments of the aorta are normal in size. The pulmonary artery was not well visualized. There is no dilatation of the ascending aorta measuring 3.30 cm. Venous The inferior vena cava is normal in size and collapses greater than 50% with inspiration. Pericardium/Pleural There is no evidence of pericardial effusion. Prior Study Comparison Changes noted compared to prior study dated: 10/03/2022. LVH is noted Measurements 2D Linear Measurements IVSd: 1.81 0.6-0.9/0.6-1.0 cm LVIDd: 3.19 3.9-5.3/4.2-5.9 cm LVIDd Index: 1.59 2.4-3.2/2.2-3.1 cm/m2 LVIDs: 2.06 2.0-3.6 cm LVPWd: 1.51 0.7-1.1 cm Ao Root: 3.00 2.1-3.5 cm LA Diam: 3.40 2.7-3.8/3.0-4.0 cm LAIDs Index: 1.69 1.5-2.3 cm/m2 LV Mass: 253.17 67-162/88-224 g LV Mass Index: 125.96 43-95/49-115 g/m2 LVOT Diam: 2.10 3.0+(-)1.3 cm 2D Systolic Function EF 4C: 68.60 >55% EF 2C: 55.80 >55% EF BiP: 63.60 >55% Mitral Valve MV Pk E: 0.59 MV PK A: 0.84 MV Decel Time: 234.00 E/A: 0.70 E'Lateral: 7.40 E'Medial: 7.40 E/E' Med: 8.00 E/E' Lat: 8.00 PHT: 69.00 MVA PHT: 3.19 Decel [place]: 2.53 Aortic Valve AoV Pk Alber: 1.42 AoV Mn Alber: 0.86 AoV VTI: 0.33 AoV Pk Grad: 8.00 Aov Mn Grad: 4.00 GAYE Cont.VTI: 2.74 LVOT LVOT Pk Alber: 1.09 LVOT Mn Alber: 0.75 LVOT VTI: 0.26 LVOT Pk Grad: 5.00 LVOT Mn Grad: 3.00 LVOT Diam: 2.10 LVOT Area: 3.46 Diastolic Function MV Pk E: 0.59 MV Pk A: 0.84 E/A: 0.70 E'Medial: 7.40 E/E' Med: 8.00 E' Laterial: 7.40 E/E' Lat: 8.00 Right Ventricle TAPSE (mm): 21.00 TVS' Alber: 11.00 Tricuspid Valve TR Pk Alber: 2.00 TR Pk Grad: 16.00 RA Press: 3.00 RVSP: 19.00 Great Vessels Aorta Ao Root-2D: 3.00 2.0-3.7 cm Ao Asc: 3.30 2.1-3.4 cm Pulmonary Valve PV Pk Alber: 0.92 Peak PV Grad: 3.00 Updated in Other Vendor System with Status of Final Mikey Olson MD electronically signed on 11/08/2024 11:50:39 AM with status of Final
== END ==
LOC: HO.CARD 13:43
PROVIDERS: Visit Provider Nurse Practitioner Family
DX: R07.89 Other chest pain (principal); E66.9 Obesity, unspecified; F17.200 Nicotine dependence, unspecified, uncomplicated
CPT/HCPCS: 93306

== ENCOUNTER → 2024-11-07 13:47 | Outpatient (BNV) | payer OTHER, SELFPAY | PROVIDERS: Visit Provider Internal Medicine Cardiovascular Disease | DX: I51.89 Other ill-defined heart diseases (principal) | CPT/HCPCS: 93306 ==

== ENCOUNTER 2024-11-25 13:52 | Outpatient (AMB) | payer OTHER, SELFPAY ==
--- NOTE | 2024-11-25 13:48 | A.OFFVIS_ITS ---
Intake Visit Reasons: Follow up Intake Note: Patient presents follow up for migraines. Allergies mold Allergy (Mild, Verified 10/06/24 15:03) SNEEZING prednisone (Prednisone) Allergy (Mild, Verified 10/06/24 15:03) NAUSEA & VOMITING losartan Allergy (Unknown, Verified 10/06/24 15:03) unknown clindamycin (CLINDAMYCIN) Adverse Reaction (Severe, Verified 10/06/24 15:03) C.DIFFICILE procaine (From Novocain) Adverse Reaction (Severe, Verified 10/06/24 15:03) NOVOCAIN WITH EPI CUSES PALPITATION erythromycin base (Erythromycin Base) Adverse Reaction (Mild, Verified 10/06/24 15:03) NAUSEA & VOMITING ? disolving stitches Allergy (Unknown, Uncoded 10/06/24 15:03) skin burn/ulceration adhesives Allergy (Unknown, Uncoded 10/06/24 15:03) skin burning, blisters HPI Comments Details: The patient is a 54-year-old female presenting with chronic migraine and TMJ dysfunction- via tele video. - Reports 3 mild to moderate migraine days per week and one severe migraine day or attack per week. - Severe migraine attacks can last up to 3 days. - Overall, experience over 16 migraine headache days per month. - Patient?s daily functioning is impacted. - Currently using Ajovy but still experiencing significant headache burden. - Sumatriptan 100 mg tablet is helpful, but causes numbness in the throat and neck, limiting its use, especially during work. - Uses a small supply of Percocet (1/2 tab) prescribed by PCP for migraine rescue. - Previously trialed Topiramate 10 years ago but discontinued due to cognitive side effects. - Trials of physical therapy led to thoracic anterior ribcage discomfort, diagnosed as costochondritis. - Denies focal neurological symptoms or head trauma. Baseline migraine characteristics: headaches start in the bridge of her nose , eyes or in the posterior neck or base of the skull, pressure pounding pain associated with light , noise sensitivity , occasional nausea , blurry vision , jaw pain . [facility] Medical History Chronic migraine without aura Hypersomnia Snoring Sleep related bruxism Schamberg disease Skin lesion of neck Mucous cyst of toe Cyst, dermoid, face HTN (hypertension) Hyperplastic colon polyp (~2020) Obesity Smoker History of back pain Hx of seasonal allergies Hx of iron deficiency anemia Depression Anxiety High cholesterol Migraines Surgical History H/O tooth extraction Hx of bilateral oophorectomy History of colonoscopy (~2020) History of tubal ligation (~2006) History of gastric bypass (~2016) History of surgical removal of skin lesion (~2021) History of lymph node biopsy (~2017) History of blepharoplasty (~2014) History of colposcopy (~2008) History of tonsillectomy and adenoidectomy (~1985) History of surgical removal of ganglion cyst (~2011) History of foot surgery (~2014) History of bunionectomy of right great toe (~2011) History of nasal surgery (~2008) Hx of endoscopy Family History Father Hx of diabetes insipidus Mother Hx of diabetes insipidus Maternal Aunt Breast cancer Son No problems noted. Daughter No problems noted. Social History Household Members: None Housing: House Are you a primary home health care social worker to a significant other at home: No Do you presently have visiting nurse or other home services: No Alcohol intake: never Comment: Patient states is tolerable Patient Tobacco Use Status: Current everyday Tobacco user Tobacco use type: Cigarette Cigarettes Per Day: 6 Years Smoked: 35 e-Cigarette/Vaping Use: Never Used Second Hand Smoke Exposure: No service: No Current occupational status: employed Current occupation: [employer] Cognitive needs: No Hearing needs: No Vision needs: Yes Female Reproductive History Menstrual Age of Menarche: 10 Physical Exam Const General: cooperative and no acute distress Orientation/consciousness: patient oriented x3 Resp Effort & Inspection: normal respiratory effort and able to speak in complete sentences Neuro General: patient oriented x3 Cognition (Neuro): normal cognition Psych Appearance: grossly normal Mental Status: mental status grossly normal Speech and movement: Normal speech and movement present Affect: normal affect Attitude: cooperative Telehealth Telehealth [facility]health [facility] Location of provider rendering services: practice address Location of patient: address on file Patient Identification confirmed using: Name, : Yes Telehealth method: video Patient verbally consented to treatment: Yes Patient verbally consented to billing insurance company: Yes Patient informed of any privacy concerns related to visit: Yes Minutes spent on Phone/Video with Pt.: 30 Assessment & Plan Assessment & Plan (1) Chronic migraine without aura: Code(s): G43.709 - Chronic migraine without aura, not intractable, without status migrainosus Category: Medical Qualifiers: Status migrainosus presence: without status migrainosus Intractability: not intractable Qualified Code(s): G43.709 - Chronic migraine without aura, not intractable, without status migrainosus (2) Low iron: Code(s): E61.1 - Iron deficiency Category: Medical (3) RLS (restless legs syndrome): Code(s): G25.81 - Restless legs syndrome Category: Medical (4) Bruxism: Code(s): F45.8 - Other somatoform disorders Category: Medical Plan For overall headache management: * Optimize good self-care, including but not limited to maintaining a healthy diet, adequate fluid intake, adequate sleep, and engaging in regular physical activity. * Track headaches and both positive and negative effects of your headache treatment trials, especially after any treatment regimen changes. * Migraine [employer] is one of many headache tracking apps. * A simple paper calendar is also a good option. * Increase fluids, with the goal of 64-80 oz of fluid per day * Continue PT exercises * Concur with trying a standing desk at work * For TMJ disorder: * Discontinue previous Botox 100 mg IM order- insurance denied. * Continue to try to use a mouth guard, either a custom or an OTC version. * For RLS: * Check ferritin level * We will request a follow-up evaluation with Hematology, Dr. Ledesma. For acute (as needed) headache treatment: It is important to take acute medications at the first sign of headache. However, please be aware that frequently using most acute medications may increase the frequency of your headache attacks, as well as make your other treatments less effective.. * Discontinue sumatriptan 100 mg- effective, but causes a strange numbness sensation in the throat and neck. * Trial Naratriptan 2.5mg tab, 1/2 - 1 tab (1.2 5-2.5mg) at onset of headache, may repeat in 4 hours. Max of 2 tabs (5mg) per 24 hours. * If needed, may take naratriptan with jwyz-tzc-hbftlis (OTC) Tylenol 650 - 1000 mg every 4 -6 hours, or Ibuprofen (Liquigel) 600mg every 6 hours, or Naproxen (Liquigel) 440mg every 12 hrs as needed. * Potential adverse effects of naratriptan include, but are not limited to, nausea, fatigue, chest tightness/tingling (usually passes within a few minutes), and medication overuse headaches. Previous acute migraine medication trials: sumatriptan 100 mg- effective, but causes a strange numbness sensation in the throat and neck. Acute migraine medication contraindications: None at this time Future considerations: Eletriptan or rizatriptan For chronic migraine headache prevention medication: Preventative medications should be taken routinely as prescribed for best effect, it may take several weeks for full effect to take effect. * Continue Riboflavin 400mg daily in the morning * Continue Magnesium 400mg daily at bedtime * Discontinue Ajovy- not fully effective * Start Botox 155 units IM, injected across the bilateral forehead scalp in the upper trapezius muscles, every 12 weeks. * Continue amitriptyline 25 mg daily at bedtime- would not increase further due to symptoms of RLS. * Continue metoprolol, irbesartan- use for HTN tx- would not increase further due to patient is prone to hypotension. * Previous medication trials: Topiramate x?s 10 years caused cognitive s/e?s. Ajovy- not fully effective after several months. * Chronic migraine prevention treatment contraindications: Nurtec, as it is indicated for episodic, not chronic migraine. Will follow-up upon review of above and patient to follow-up in clinic in 6 months or sooner prn. Coding Level of Care Code Tele Est Pt Level 4 (13951) Diagnoses Chronic migraine without aura without status migrainosus, not intractable G43.709 Status migrainosus presence: without status migrainosus Intractability: not intractable Low iron E61.1 RLS (restless legs syndrome) G25.81 Bruxism F45.8
--- OUTSIDE RECORDS SUMMARY | 2024-11-25 15:09 | XMS_ITS | Patient Health Record ---
Author Organization [facility] [address] Address [address] [place] [address] Care Team Providers Care Fugitive Detective Name Role Phone DORIAN BARNES Unavailable [phone] Allergies Allergen (clinical drug ingredient) Drug/Non Drug [...] Problem Obesity due to exces s calories (260679343) Other obesity due to excess calories (E66.09) Active confirmed Problem Essential hypertensi on (62525748) Essential (primary) hypertension (I10) Active confirmed Problem Pure hypercholesterolemia (152481174) Pure hypercholester olemia, unspecified (E78.00) Active confirmed Problem Body mass index 35.0 0 to 39.99 (352142044453290) Body mass index [BMI] 39.0-39.9, adult (Z68.39) Active confirmed Problem Migraine without aur a, not refractory (000495212) Migraine without aura and without status migrainosus, not intractable (G43.009) Active confirmed Problem Mixed anxiety and depressive disorder (301586190) Depression with anxiety (F41.8) Active confirmed Plan Of Treatment No Information Insurance Providers Payer Name Payer Address Payer Phone Subscriber Number Group Number Insured Name Patient Relationship to Insured Coverage Start Date Coverage End Date Blue Benefits Admin [address] [address] [place] [address] [phone] [id number] Coby Stevens Self - patient is the insured Medical (General) History Medical History History ICD Code hypertension hypercholesterolemia headache depression weight gain Surgical History Surgery Date(Month/Year) gastric bypass nose surgery foot surgery x 3
== END 2024-11-25 15:06 | disposition home or self-care (01) ==
PROVIDERS: PCP Nurse Practitioner Family; Visit Provider Nurse Practitioner Family
DX: G43.709 Chronic migraine without aura, not intractable, without status migrainosus (principal); E61.1 Iron deficiency; G25.81 Restless legs syndrome; F45.8 Other somatoform disorders
CPT/HCPCS: 99214

== ENCOUNTER 2024-12-25 12:00 | Outpatient (RCR) | payer OTHER, SELFPAY ==
[2024-11-10 10:05] VITALS: BP 112/56; PULSE 79
--- NOTE | 2024-11-10 10:58 | MHC.PT.EP ---
[facility] [place] Office [place] Office [place] Office [address] Shayy Mccoy [address] [phone] F: [phone] F: [phone] F: [phone] F: [phone] Physical Therapy Plan of Care Date of Evaluation: 11/10/24 Date of Surgery: NA Diagnosis: Pain in thoracic spine Assessment: Coby is a 54 year old female who is referred to PT for pain in thoracic spine . She reports of having sudden onset of severe pressure pain in thoracic spine about 2 months back. EKG ruled out cardiac issues, just had echocardiogram done. In addition she also reports of having constant dull pain in upper back which is worse with doing dishes and vacuuming. On PT examination she stated that the pressure pain had sudden onset- no precipitating factor and the 3/10 dull pain is with activities, no TTP noted, decreased mobility noted from T4 to T8, decreased scap muscle strength and altered posture. She is independent with all ADLs but has pain with bending activities. She works in [employer] at [employer]. She would benefit from skilled PT to address the aforementioned impairments and improve tolerance to functional activities. Frequency and Duration: The patient will be seen 2/week for 5 weeks Short Term Goals: 1. Pt will have 50% decrease in pain which will enable her to sit without pain in 2 weeks 2. Pt will be able to move her trunk through full range of motion without pain which will enable her to perform all ADLS without pain in 3 weeks Addiction Nurse Goals: 1. Pt will demonstrate an increase in muscle strength by 1 grade which will enable her to wash dishes and vacuum without pain in 5 weeks 2. Pt will be independent with all HEP for symptom management and maintenance following d/c in 5 weeks Treatment Plan: Modalities to reduce pain, spasms and effusion. Manual therapy to restore motion and function. Therapeutic exercise to improve strength and flexibility. Neuromuscular re-education for posture and balance. Therapeutic activities to return to functional activities of daily living. Electronically signed by: Felecia Lozano PT DPT Please sign and return to therapist. Thank you for your referral.
--- NOTE | 2024-12-30 11:47 | MHC.PT.DC ---
[facility] [place] Office [place] Office [place] Office [address] Shayy Mccoy [address] [phone] F: [phone] F: [phone] F: [phone] F: [phone] Physical Therapy Discharge Report Diagnosis: Pain in thoracic spine Date of Surgery: NA Date of Evaluation: 11/10/24 Date of Discharge: 12/30/24 Treatments to Date: 6 Cancellations to Date: 0 No Shows to Date: 0 Discharge Status: Improved Function Independent with HEP Discharge Summary: Coby attended 6 PT visits and has made significant improvements with PT. She is independent with all HEP as well. She is therefore being d/c from PT. Electronically signed by: Felecia Lozano, PT DPT Please sign and return to therapist. Thank you for your referral.
== END 2024-12-30 11:48 | disposition home or self-care (01) ==
LOC: HO.PT 12:00
PROVIDERS: PCP Nurse Practitioner Family; Visit Provider Nurse Practitioner Family
DX: M54.6 Pain in thoracic spine (principal)
CPT/HCPCS: 97110; 97140; 97161; 97530

== ENCOUNTER 2024-12-31 14:43 | Outpatient (AMB) | payer OTHER, SELFPAY ==
--- NOTE | 2024-12-31 14:44 | MHC.OFFVIS ---
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 disolving stitches Allergy (Unknown, Uncoded 10/06/24 15:03) skin burn/ulceration adhesives Allergy (Unknown, Uncoded 10/06/24 15:03) skin burning, blisters Medication List - Last Reconciled 12/31/24 by Narda Ayala MD amitriptyline 25 mg PO DAILY 90 days calcium carbonate-vitamin D3 600 mg-10 mcg (400 unit) (Calcium with Vitamin D) 1 tab PO BID 90 days cyanocobalamin (vitamin B-12) 1,000 mcg PO .weekly 90 days [EyePromise Restore ] fexofenadine-pseudoephedrine 60-120 mg ER (Vanessa-D 12 Hour) 1 tab PO Q12H PRN fremanezumab-vfrm (Ajovy) 675 mg (4.5 mL) subcut [id number] 90 days ibuprofen 800 mg PO Q8H PRN irbesartan 300 mg PO DAILY lansoprazole 15 mg PO DAILY loteprednol etabonate 0.5% 1 drp ophthalmic (eye) BID magnesium oxide 400 mg PO BEDTIME metoprolol succinate ER 100 mg PO DAILY 90 days multivitamin 1 tab PO DAILY naratriptan take 1/2 - 1 tab at onset of headache; if no relief may repeat 1 tab after at least 4 hrs; max = 2 tabs/24 hrs orally PRN; 30 days onabotulinumtoxinA (Botox) 200 units IM ONCE 12 weeks ondansetron HCl 8 mg PO Q12H PRN 10 days oxybutynin chloride ER 10 mg PO DAILY 90 days oxycodone-acetaminophen 5-325 mg (Percocet) 1 tab PO ONCE PRN 7 days riboflavin (vitamin B2) 400 mg PO QAM Saccharomyces boulardii (Daily Probiotic (S. boulardii)) 150 mg PO BID simvastatin 40 mg PO BEDTIME 90 days spironolactone 25 mg PO DAILY sumatriptan succinate 100 mg PO BID 15 days thiamine HCl (vitamin B1) (Vitamin B-1) 100 mg PO DAILY HPI Comments Details: ? 54y/o female comes for treatment of migraines with botox. ??? Most frequent reported adverse reactions following injection of botox for chronic migraine include neck pain (9%), headache(5%), eyelid ptosis(4%), migraine(4%), muscular weakness(4%), musculuskeletal stiffness(4%), bronchitis(3%), injection site pain (3%), musculoskeletal pain(3%), myalgia(3%), facial paresis(2%), HTN(2%) and muscle spasms(2%) were discussed in detail. ??? Botulinum toxin typeA 200units Lot no [id number] expiration Feb 2027 was diluted with 4 cc of normal saline . ??? Muscles injected- ??? Frontalis 4 sites ??? Procerus 1 site ??? Professor Of Literature- 2 sites ??? Temporalis- 8 sites ??? Occipitalis- 6 sites ??? Cervical paraspinals- 4 sites ??? Trapezius- 6 sites- 10 units each nataly zygomaticus major - 5 units each ??? 5 units each in 31 site ??? Total use- 195units ??? Discarded-5units [facility] Medical History Chronic migraine without aura Hypersomnia Snoring Sleep related bruxism Schamberg disease Skin lesion of neck Mucous cyst of toe Cyst, dermoid, face HTN (hypertension) Hyperplastic colon polyp (~2020) Obesity Smoker History of back pain Hx of seasonal allergies Hx of iron deficiency anemia Depression Anxiety High cholesterol Migraines Surgical History H/O tooth extraction Hx of bilateral oophorectomy History of colonoscopy (~2020) History of tubal ligation (~2006) History of gastric bypass (~2016) History of surgical removal of skin lesion (~2021) History of lymph node biopsy (~2017) History of blepharoplasty (~2014) History of colposcopy (~2008) History of tonsillectomy and adenoidectomy (~1985) History of surgical removal of ganglion cyst (~2011) History of foot surgery (~2014) History of bunionectomy of right great toe (~2011) History of nasal surgery (~2008) Hx of endoscopy Family History Father Hx of diabetes insipidus Mother Hx of diabetes insipidus Maternal Aunt Breast cancer Son No problems noted. Daughter No problems noted. 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- Cognitive needs: No Hearing needs: No Vision needs: Yes Female Reproductive History Menstrual Age of Menarche: 10 Physical Exam Vital Signs: Last Vital Signs Pulse 68 12/31/24 14:45 BP 120/82 12/31/24 14:45 Pulse Ox 94 12/31/24 14:45 Oxygen Delivery Method Room Air 12/31/24 14:45 BMI result Body Mass Index 38.3 Const General: cooperative and no acute distress Orientation/consciousness: patient oriented x3 Resp Effort & Inspection: normal respiratory effort and able to speak in complete sentences Neuro General: patient oriented x3 Cognition (Neuro): normal cognition Psych Appearance: grossly normal Mental Status: mental status grossly normal Speech and movement: Normal speech and movement present Affect: normal affect Attitude: cooperative Office Procedures Botulinum toxin Injection 38847 - Migraine Procedure code (CPT) selection complete Office Meds onabotulinumtoxinA 200 unit solution for injection Performing Provider: Narda Ayala MD Performing Location: [facility] Administered by: Narda Ayala MD on 12/31/24 15:16 Dose Route Admin Location Dispensed Lot Number Expiration Date [facility] Helicopter Officer 195 unit subcut 200 units [id number] ALLERGAN/BOTOX Total Dispensed Waste 200 units 2.5 % Comments: see hpi Assessment & Plan Assessment & Plan (1) Chronic migraine without aura: Code(s): G43.709 - Chronic migraine without aura, not intractable, without status migrainosus Category: Medical Qualifiers: Status migrainosus presence: without status migrainosus Intractability: not intractable Qualified Code(s): G43.709 - Chronic migraine without aura, not intractable, without status migrainosus Plan Patient tolerated the procedure well she will call with nay side effects Orders: Orders AMB Botulinum toxin Injection - Patient Supplied N/C Today G43.709 - Chronic migraine without aura, not intractable, without status migrainosus Coding Level of Care Code Est Pt Level 1 (56629) Diagnoses Chronic migraine without aura without status migrainosus, not intractable G43.709 Status migrainosus presence: without status migrainosus Intractability: not intractable CPT Codes Botox Injection - Botox 3: 67526 - Migraine ([id number])
[2024-12-31 14:45] VITALS: BP 120/82; PULSE 68; O2SAT 94; BMI 38.3
--- OUTSIDE RECORDS SUMMARY | 2024-12-31 17:18 | XMS_ITS | Patient Health Record ---
Author Organization [facility] Address [address] [place] [address] Care Team Providers Care Pharmacology Professor Name Role Phone DORIAN BARNES Unavailable [phone] Allergies Allergen (clinical drug ingredient) Drug/Non Drug [...] Problem Obesity due to exces s calories (757703432) Other obesity due to excess calories (E66.09) Active confirmed Problem Essential hypertensi on (27775701) Essential (primary) hypertension (I10) Active confirmed Problem Pure hypercholesterolemia (073945540) Pure hypercholester olemia, unspecified (E78.00) Active confirmed Problem Body mass index 35.0 0 to 39.99 (316638805571114) Body mass index [BMI] 39.0-39.9, adult (Z68.39) Active confirmed Problem Migraine without aur a, not refractory (534582580) Migraine without aura and without status migrainosus, not intractable (G43.009) Active confirmed Problem Mixed anxiety and depressive disorder (938643005) Depression with anxiety (F41.8) Active confirmed Plan Of Treatment No Information Insurance Providers Payer Name Payer Address Payer Phone Subscriber Number Group Number Insured Name Patient Relationship to Insured Coverage Start Date Coverage End Date Blue Benefits [place] [address] [address] [place] [address] [id number] Coby Stevens Self - patient is the insured Medical (General) History Medical History History ICD Code hypertension hypercholesterolemia headache depression weight gain Surgical History Surgery Date(Month/Year) gastric bypass nose surgery foot surgery x 3
== END 2024-12-31 15:12 | disposition home or self-care (01) ==
LOC: HO.HSMS 14:43
PROVIDERS: PCP Nurse Practitioner Family; Visit Provider Psychiatry & Neurology Neurology
DX: G43.709 Chronic migraine without aura, not intractable, without status migrainosus (principal)
CPT/HCPCS: 64615

== ENCOUNTER → 2024-12-31 14:43 | Outpatient (BNVA) | payer OTHER, SELFPAY | PROVIDERS: PCP Nurse Practitioner Family; Visit Provider Psychiatry & Neurology Neurology | DX: G43.709 Chronic migraine without aura, not intractable, without status migrainosus (principal) | CPT/HCPCS: 64615; 99211; J0585 ==

== ENCOUNTER 2025-02-03 08:08 | Outpatient (AMB) | payer OTHER, SELFPAY ==
[2025-02-03 08:18] VITALS: BP 122/78; BMI 38.3
--- NOTE | 2025-02-03 08:18 | MHC.OFFVIS ---
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: No Information Interpreted: non-clinical & clinical Chemistry Intern: Chemistry Intern Present (Hyacinth Catrachito CARABALLO) Accompanied by: Self / Same As Patient Allergies mold Allergy (Mild, Verified 02/03/25 08:21) SNEEZING prednisone (Prednisone) Allergy (Mild, Verified 02/03/25 08:21) NAUSEA & VOMITING losartan Allergy (Unknown, Verified 02/03/25 08:21) unknown clindamycin (CLINDAMYCIN) Adverse Reaction (Severe, Verified 02/03/25 08:21) C.DIFFICILE procaine (From Novocain) Adverse Reaction (Severe, Verified 02/03/25 08:21) NOVOCAIN WITH EPI CUSES PALPITATION erythromycin base (Erythromycin Base) Adverse Reaction (Mild, Verified 02/03/25 08:21) NAUSEA & VOMITING ? disolving stitches Allergy (Unknown, Uncoded 02/03/25 08:21) skin burn/ulceration adhesives Allergy (Unknown, Uncoded 02/03/25 08:21) skin burning, blisters Post menopausal: Yes HPI Comments Details: Presenting for annual exam. No complaints. Last Pap/HPV was negative in 04/29 Last Mammogram was BI-RADS 1 in 08/01 Last colonoscopy in 04/29, the recommendation was to repeat in 10 years [facility] Medical History Chronic migraine without aura Hypersomnia Snoring Sleep related bruxism Schamberg disease Skin lesion of neck Mucous cyst of toe Cyst, dermoid, face HTN (hypertension) Hyperplastic colon polyp (~2020) Obesity Smoker History of back pain Hx of seasonal allergies Hx of iron deficiency anemia Depression Anxiety High cholesterol Migraines Surgical History H/O tooth extraction Hx of bilateral oophorectomy History of colonoscopy (~2020) History of tubal ligation (~2006) History of gastric bypass (~2016) History of surgical removal of skin lesion (~2021) History of lymph node biopsy (~2017) History of blepharoplasty (~2014) History of colposcopy (~2008) History of tonsillectomy and adenoidectomy (~1985) History of surgical removal of ganglion cyst (~2011) History of foot surgery (~2014) History of bunionectomy of right great toe (~2011) History of nasal surgery (~2008) Hx of endoscopy Family History Father Hx of diabetes insipidus Mother Hx of diabetes insipidus Maternal Aunt Breast cancer Son No problems noted. Daughter No problems noted. 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: No Hearing needs: No Vision needs: Yes Female Reproductive History Menstrual Age of Menarche: 10 Review of Systems Const All systems reviewed & are unremarkable except as noted in HPI and below Card Reports as per HPI Resp Reports as per HPI GI Reports as per HPI and Reports no additional complaints Reports as per HPI Physical Exam Vital Signs: Last Vital Signs BP 122/78 02/03/25 08:18 BMI result Body Mass Index 38.3 Const General: cooperative, healthy appearing and comfortable Chest Chest palpation & inspection: normal inspection of the chest and normal palpation of entire chest wall Breast/axilla inspection: normal inspection of the breasts and normal inspection of the axillae Breast/axilla palpation: normal palpation of the breasts, normal palpation of the axillae and no axillary lymphadenopathy Resp Effort & Inspection: normal respiratory effort Auscultation: clear to auscultation bilaterally Percussion: percussion normal Cardio Palpation: normal PMI Rate: regular rate Rhythm: regular rhythm Heart sounds: no murmurs and no rubs Peripheral pulses: Peripheral pulses 2+ throughout GI Inspection: Yes normal to inspection Palpation (GI): Soft to palpation, nontender, no guarding, not rigid and No hepatosplenomegaly present Percussion: Yes normal to percussion Auscultation: normal bowel sounds Rectal Exam - Female: deferred General: Yes bladder normal to palpation External Female Exam: No lesion Speculum Exam - Vagina: normal appearance of the vagina, normal palpation, normal vaginal discharge and not erythematous Speculum Exam - Cervix: normal appearance of the cervix and normal palpation Bimanual exam- vagina & uterus: normal bimanual exam, normal palpation, uterine size normal, bladder normal to palpation, consistency normal and normal palpation Bimanual Exam- Adnexa, other: normal adnexae, no masses and no tenderness Assessment & Plan Assessment & Plan (1) Well woman exam: Code(s): Z01.419 - Encounter for gynecological examination (general) (routine) without abnormal findings Category: Medical Plan: Co testing done. Counseled the patient about the recommended dietary allowance of 1200 mg of Calcium & 600 IU of vitamin D. Instructions given the patient is schedule next screening Mammogram in 08/02. The patient was instructed to perform monthly self-breast exams and schedule annual exam in a year. All questions answered and the patient verbalized understanding. Coding Level of Care Code Est Pt Prev Care 40-64y(25952) Diagnoses Well woman exam Z01.419
== END 2025-02-03 09:00 | disposition home or self-care (01) ==
LOC: HO.HWS 08:09
PROVIDERS: Visit Provider Obstetrics & Gynecology
DX: Z01.419 Encounter for gynecological examination (general) (routine) without abnormal findings (principal)
CPT/HCPCS: 99396; 99459

== ENCOUNTER 2025-02-03 08:08 | Outpatient (REF) | payer OTHER, SELFPAY ==
--- OUTSIDE RECORDS SUMMARY | 2025-02-03 10:09 | XMS_ITS | Patient Health Record ---
Author Organization [facility] [address] Address [address] [place] [address] Care Team Providers Care Cafeteria Manager Name Role Phone DORIAN BARNES Unavailable [phone] Allergies Allergen (clinical drug ingredient) Drug/Non Drug [...] Problem Obesity due to exces s calories (634226338) Other obesity due to excess calories (E66.09) Active confirmed Problem Essential hypertensi on (92071877) Essential (primary) hypertension (I10) Active confirmed Problem Pure hypercholesterolemia (998439552) Pure hypercholester olemia, unspecified (E78.00) Active confirmed Problem Body mass index 35.0 0 to 39.99 (848164105914081) Body mass index [BMI] 39.0-39.9, adult (Z68.39) Active confirmed Problem Migraine without aur a, not refractory (543088202) Migraine without aura and without status migrainosus, not intractable (G43.009) Active confirmed Problem Mixed anxiety and depressive disorder (296941580) Depression with anxiety (F41.8) Active confirmed Plan Of Treatment No Information Insurance Providers Payer Name Payer Address Payer Phone Subscriber Number Group Number Insured Name Patient Relationship to Insured Coverage Start Date Coverage End Date Blue Benefits Admin [address] [address] [place] [address] [phone] [id number] Coby Stevens Self - patient is the insured Medical (General) History Medical History History ICD Code hypertension hypercholesterolemia headache depression weight gain Surgical History Surgery Date(Month/Year) gastric bypass nose surgery foot surgery x 3
== END 2025-02-03 08:09 | disposition home or self-care (01) ==
LOC: HO.LNP 08:08
PROVIDERS: Visit Provider Obstetrics & Gynecology
DX: Z01.419 Encounter for gynecological examination (general) (routine) without abnormal findings (principal); Z98.51 Tubal ligation status
CPT/HCPCS: 87626; 88175

== ENCOUNTER 2025-02-11 12:59 | Outpatient (AMB) | payer OTHER, SELFPAY ==
--- NOTE | 2025-02-11 13:05 | AM.OFFWIN_ITS ---
Intake Vital Signs 02/11/25 13:06 Height 5 ft 3 in Weight 215 lb BMI 38.1 BP 120/72 Blood Pressure Location Rt brachial Position Sitting Pulse 75 Pulse Source Pulse Oximeter Temp 97.7 F Temp Source Oral Pulse Oximetry (%) 96 Oxygen Delivery Method Room Air Intake Visit Reasons: EP Severe upper abdominal pain Intake Note: pt presents with severe upper abdominal pain and tightness for approx 1.5 weeks, GERD (on lansoprazole)- prev dx hiatal hernia, Patient Tobacco Use Status: Current everyday Tobacco user Allergies mold Allergy (Mild, Verified 02/11/25 13:11) SNEEZING prednisone (Prednisone) Allergy (Mild, Verified 02/11/25 13:11) NAUSEA & VOMITING losartan Allergy (Unknown, Verified 02/11/25 13:11) unknown clindamycin (CLINDAMYCIN) Adverse Reaction (Severe, Verified 02/11/25 13:11) C.DIFFICILE procaine (From Novocain) Adverse Reaction (Severe, Verified 02/11/25 13:11) NOVOCAIN WITH EPI CUSES PALPITATION erythromycin base (Erythromycin Base) Adverse Reaction (Mild, Verified 02/11/25 13:11) NAUSEA & VOMITING ? disolving stitches Allergy (Unknown, Uncoded 02/03/25 08:21) skin burn/ulceration adhesives Allergy (Unknown, Uncoded 02/03/25 08:21) skin burning, blisters Do you need a note to return to daycare/school/sports/work: No HPI HPI Comments History of Present Illness Details History of Present Illness - The patient is a 54-year-old female pr esenting with abdominal pain. - Abdominal pain has been present for al most two weeks, worsening with food intake and improving when fasting. - She describes it as a dull, aching but twisting feeling. - She reports burping and passing gas as normal. Does not feel like GERD, no burning in chest. - Denies associated symptoms such as fev er, diarrhea, nausea, vomiting, or bloody or black stool. - History of gastric bypass surgery in 2 017, with no similar pain episodes post- surgery until now. Also reports hiatal hernia that hasn't been repaired yet but takes daily medications for it. - Denies alcohol consumption and no hist ory of pancreatitis. Physical Exam General: Cooperative, healthy appearing, comfortable, no acute distress and well developed Orientation: Patient oriented x3 Limitations: No limitations Head: Normal to inspection Ears: Hearing grossly normal bilaterally Nose: Normal External nose present Face and sinus: Normal facial exam Eyes: Appearance normal, both eyes and all related structures Neck: Normal visual inspection and Yes full ROM Respiratory: Normal respiratory effort and able to speak in complete sentences. GI: normoactive BS, soft, negative mcburneys, negative murphys, TTP epigastric area with no other TTP throughout abdomen, no guarding, no rigidity Skin: No rashes or lesions noted Neuro: Patient oriented x3, gait normal Extremities: Normal to inspection, moving all extremities normally Review of Systems - Gastrointestinal: Reports abdominal pa in for two weeks, worse with eating. Denies fever, diarrhea, nausea, vomiting, or changes in stool color. - General: Denies fever. All systems reviewed and are unremarkable except as noted in HPI PFSH Medical History Chronic migraine without aura Hypersomnia Snoring Sleep related bruxism Schamberg disease Skin lesion of neck Mucous cyst of toe Cyst, dermoid, face HTN (hypertension) Hyperplastic colon polyp (~2020) Obesity Smoker History of back pain Hx of seasonal allergies Hx of iron deficiency anemia Depression Anxiety High cholesterol Migraines Surgical History H/O tooth extraction Hx of bilateral oophorectomy History of colonoscopy (~2020) History of tubal ligation (~2006) History of gastric bypass (~2016) History of surgical removal of skin lesion (~2021) History of lymph node biopsy (~2017) History of blepharoplasty (~2014) History of colposcopy (~2008) History of tonsillectomy and adenoidectomy (~1985) History of surgical removal of ganglion cyst (~2011) History of foot surgery (~2014) History of bunionectomy of right great toe (~2011) History of nasal surgery (~2008) Hx of endoscopy Family History Father Hx of diabetes insipidus Mother Hx of diabetes insipidus Maternal Aunt Breast cancer Son No problems noted. Daughter No problems noted. 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 - VSS, pt well appearing and PE remarkable for epigastric pain. - Pancreatitis vs hiatal hernia vs biliary colic vs esophagitis vs PUD vs GERD - Will get labs. Consideration of imaging studies to evaluate the cause of pain, given the history of gastric bypass and hiatal hernia, spoke with PCP and he was okay with ordering CT abd/pelvis with IV contrast to further evaluate. Likely will need a referral to a general surgeon for further evaluation and management is suggested. May need US or upper endoscopy. - If symptoms get worse, can go to ED for emergent workup. Orders: Orders Lipase Today R10.13 - Epigastric pain Comprehensive Met. Panel Today R10.13 - Epigastric pain CT abdomen pelvis w IV con Today R10.13 - Epigastric pain Complete Blood Count Auto Diff Today R10.13 - Epigastric pain Coding Level of Care Code Est Pt Level 4 (57960) Diagnoses Epigastric pain R10.13
[2025-02-11 13:06] VITALS: BP 120/72; PULSE 75; TEMP 36.5; O2SAT 96; BMI 38.1
--- OUTSIDE RECORDS SUMMARY | 2025-02-11 15:44 | XMS_ITS | Patient Health Record ---
Author Organization [facility] [address] Address [address] [place] [address] Care Team Providers Care Parcel Post Carrier Name Role Phone DORIAN BARNES Unavailable [phone] Allergies Allergen (clinical drug ingredient) Drug/Non Drug [...] Problem Obesity due to exces s calories (772763941) Other obesity due to excess calories (E66.09) Active confirmed Problem Essential hypertensi on (69625723) Essential (primary) hypertension (I10) Active confirmed Problem Pure hypercholesterolemia (727059216) Pure hypercholester olemia, unspecified (E78.00) Active confirmed Problem Body mass index 35.0 0 to 39.99 (891654962834935) Body mass index [BMI] 39.0-39.9, adult (Z68.39) Active confirmed Problem Migraine without aur a, not refractory (025142605) Migraine without aura and without status migrainosus, not intractable (G43.009) Active confirmed Problem Mixed anxiety and depressive disorder (094209780) Depression with anxiety (F41.8) Active confirmed Plan Of Treatment No Information Insurance Providers Payer Name Payer Address Payer Phone Subscriber Number Group Number Insured Name Patient Relationship to Insured Coverage Start Date Coverage End Date Blue Benefits Admin [address] [address] [place] [address] [id number] Coby Stevens Self - patient is the insured Medical (General) History Medical History History ICD Code hypertension hypercholesterolemia headache depression weight gain Surgical History Surgery Date(Month/Year) gastric bypass nose surgery foot surgery x 3
== END 2025-02-11 14:35 | disposition home or self-care (01) ==
PROVIDERS: PCP Nurse Practitioner Family; Visit Provider Physician Assistant
DX: R10.13 Epigastric pain (principal)

== ENCOUNTER 2025-02-11 12:59 | Outpatient (REF) | payer OTHER, SELFPAY ==
[2025-02-11 16:03] LABS: MANUAL DIFF FLAG NO
[2025-02-11 16:12] LABS: Hematocrit 41.8 % (37.0-47.0); Hemoglobin 14.0 g/dl (12.0-16.0); Imm Gran Abs Auto 0.02 X10*3/uL (0.00-0.03); Imm Gran Pct Auto 0.2 % (0.0-0.4); Lymphocytes Absolute Auto 2.6 X10*3/uL (1.2-4.9); Mean Corpuscular HGB Conc 33.5 g/dl (31.0-35.0); Mean Corpuscular Hemoglobin 29.4 pg (27.0-33.0); Mean Corpuscular Volume 87.8 fL (80.0-98.0); NRBC Abs Auto 0.000 X10*3/uL (0.0-0.012); NRBC Pct Auto 0.0 /100WBC (0.0-0.2); Platelet Count 347 X10*3/uL (160-400); Red Blood Count 4.76 X10*6/uL (4.20-5.50); White Blood Count 8.4 X10*3/uL (4.8-10.8)
[2025-02-11 16:23] LABS: Alanine Aminotransferase 15 U/L (0-31); Albumin Level 4.5 g/dL (3.5-5.0); Alkaline Phosphatase 66 U/L (39-117); Anion Gap 11 (12-20); Aspartate Amino Transferase 26 U/L (5-31); Blood Urea Nitrogen 14 mg/dL (9-16); Calcium 9.3 mg/dL (8.4-10.2); Carbon Dioxide 28 mmol/L (22-29); Chloride 105 mmol/L (96-108); Estimated Glomerular Filt Rate > 60; Lipase 6 U/L (8-78); Potassium 4.4 mmol/L (3.3-5.1); Sodium 140 mmol/L (135-145); Total Protein 7.0 g/dL (6.5-8.0)
== END 2025-02-11 13:00 | disposition home or self-care (01) ==
LOC: HO.HMGCLDS 12:59
PROVIDERS: PCP Nurse Practitioner Family; Visit Provider Physician Assistant
DX: R10.13 Epigastric pain (principal)
CPT/HCPCS: 36415; 80053; 83690; 85025

== ENCOUNTER 2025-02-16 08:26 | Outpatient (REF) | payer OTHER, SELFPAY ==
--- NOTE | ~2025-02-16 | CT_ITS ---
EXAMINATION: CT ABDOMEN AND PELVIS WITH CONTRAST CLINICAL INFORMATION: R10.13 - Epigastric pain COMPARISON: None available. TECHNIQUE: Multidetector volumetric images were obtained from the superior aspect of the liver through the pubic symphysis following administration 85 mL of Omnipaque 350 intravenous contrast. Sagittal and coronal reformatted images were obtained on the technologist's workstation. Oral contrast: Present This CT examination was performed using dose optimization techniques as appropriate, variously including the following: *Automated exposure control *Adjustment of mA and/or kV according to patient size (this includes techniques or standardized protocols for targeted exams where dose is matched to indication/reason for exam; i.e. extremities or head) *Use of iterative reconstruction technique FINDINGS: LUNG BASES: The visualized lung bases are unremarkable. LIVER, GALLBLADDER, AND BILIARY TREE: The liver is normal in size, shape, and attenuation. No focal hepatic lesion or biliary ductal dilatation is present. The gallbladder is unremarkable with no evidence of radiopaque gallstones, gallbladder wall thickening, or obvious pericholecystic inflammatory changes. PANCREAS: There is focal punctate calcific effusion the tail of pancreas. SPLEEN: Unremarkable. ADRENAL GLANDS: Unremarkable. KIDNEYS AND URETERS: The kidneys are normal in size, shape, and attenuation. No hydronephrosis, hydroureter, or calculi seen. No perinephric stranding. BLADDER: Unremarkable. GASTROINTESTINAL TRACT: There are changes related to gastric bypass surgery. There are a few pseudodiverticula in the sigmoid colon. The appendix is within normal limits. ABDOMINAL WALL: No significant hernia is appreciated. LYMPH NODES: Normal. VASCULAR: Mild atherosclerotic calcifications PELVIC VISCERA: Uterus is unremarkable. The ovaries are not clearly identified OSSEOUS STRUCTURES: There is sacralization of L5 on the right. CT/CT abdomen pelvis w IV con IMPRESSION: There are changes related to gastric bypass surgery. There are a few scattered pseudodiverticula in the sigmoid colon without sign of infection. Ovaries are not visualized and may be surgically absent. Fleischner guidelines were followed. Electronically signed by: Aris Dominique MD 02/16/2025 11:08 AM EST
--- OUTSIDE RECORDS SUMMARY | 2025-02-16 08:46 | XMS_ITS | Patient Health Record ---
Author Organization [facility] [address] Address [address] [place] [address] Care Team Providers Care Training Personnel Supervisor Name Role Phone DORIAN BARNES Unavailable [phone] Allergies Allergen (clinical drug ingredient) Drug/Non Drug [...] End Date Status SUMAtriptan Succinate 100 MG Tablet TAKE 1 TABLET BY MOUTH TWICE DAILY FOR 15 DAYS Oral; Duration: 5 Active Ozempic (1 MG/DOSE) 4 MG/3ML Solution Pen-injector 1mg Subcutaneous weekly; Duration: 30 days 09/28/2022 Active Vitamin B1 Active Metoprolol Succinate ER 25 MG Tablet Extended Release 24 Hour TAKE 1 TABLET BY MOUTH DAILY Oral; Duration: 90 Active Amitriptyline HCl 25 MG Tablet TAKE 1 TABLET BY MOUTH DAILY Oral; Duration: 90 Active Citalopram Hydrobromide 10 MG Tablet TAKE 1 TABLET BY MOUTH DAILY Oral; Duration: 68 Active Vitamin B12 Active Multivitamin Active Ibuprofen 800 MG Tablet 1 tablet with fo od or milk as needed Orally every 8 hrs Active Acidophilus Probiotic - Capsule as directed Orally Active oxyCODONE-Acetaminophen 5-325 MG Tablet Oral; Duration: 7 prn Active Irbesartan 75 MG Tablet TAKE 1 TABLET BY MOUTH DAILY Oral; Duration: 90 Active Prevacid 30 MG Capsule Delayed Release 1 capsule before a meal Orally Once a day Active Simvastatin 40 MG Tablet TAKE 1 TABLET B Y MOUTH AT BEDTIME Oral; Duration: 35 Active Lansoprazole 15 MG Capsule Delayed Release 1 capsule before a meal Orally Once a day Active Terazosin HCl 1 MG Capsule Oral; Duration: 90 Active Social History Social History Drugs/Alcohol: Social Info Question Answer Notes Alcohol Screen (Audit-C) Did you have a drink containing alcohol in the past year? No Points 0 Interpretation Negative Drugs Have you used drugs other than those for medical reasons in the past 12 months? No Section Notes: Smokes cigarettes: 1/3 of a pack a day for 35 years Problems Problem Type SNOMED Code ICD Code Onset Dates Problem Status W/U Status Risk Notes Problem Obesity due to exces s calories (050518462) Other obesity due to excess calories (E66.09) Active confirmed Problem Essential hypertensi on (42965228) Essential (primary) hypertension (I10) Active confirmed Problem Pure hypercholesterolemia (925614310) Pure hypercholester olemia, unspecified (E78.00) Active confirmed Problem Body mass index 35.0 0 to 39.99 (801906647622442) Body mass index [BMI] 39.0-39.9, adult (Z68.39) Active confirmed Problem Migraine without aur a, not refractory (204583949) Migraine without aura and without status migrainosus, not intractable (G43.009) Active confirmed Problem Mixed anxiety and depressive disorder (173952192) Depression with anxiety (F41.8) Active confirmed Plan Of Treatment No Information Insurance Providers Payer Name Payer Address Payer Phone Subscriber Number Group Number Insured Name Patient Relationship to Insured Coverage Start Date Coverage End Date Blue Benefits Admin [address] [address] [place] [address] [id number] Coby Stevens Self - patient is the insured Medical (General) History Medical History History ICD Code hypertension hypercholesterolemia headache depression weight gain Surgical History Surgery Date(Month/Year) gastric bypass nose surgery foot surgery x 3
[2025-02-16] MEDS: iohexoL 350 MG/ML 100 ML INFUS..BTL IV (10:58)
[2025-02-16] MEDS: Barium Sulfate Oral (Vanilla) 450 ML ORAL.SUSP 900 ML PO (10:58)
== END 2025-02-16 08:27 | disposition home or self-care (01) ==
LOC: HO.CT 08:26
PROVIDERS: PCP Nurse Practitioner Family; Visit Provider Physician Assistant
DX: R10.13 Epigastric pain (principal)
CPT/HCPCS: 74177; Q9967

== ENCOUNTER → 2025-02-16 08:27 | Outpatient (BNV) | payer OTHER, SELFPAY | PROVIDERS: PCP Nurse Practitioner Family; Visit Provider Radiology Diagnostic Radiology | DX: K57.30 Diverticulosis of large intestine without perforation or abscess without bleeding (principal) | CPT/HCPCS: 74177 ==

== ENCOUNTER 2025-03-11 10:51 | Outpatient (AMB) | payer OTHER, SELFPAY ==
--- NOTE | 2025-03-11 10:56 | MHC.OFFVIS ---
Vital Signs 03/11/25 11:05 Height 5 ft 3 in Weight 213 lb 2 oz BMI 37.7 BP 116/71 Blood Pressure Location Lt brachial Position Sitting Pulse 77 Intake Visit Reasons: Lipoma of neck Intake Note: Patient is seen in office for evaluation of a lipoma of the neck. 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 disolving stitches Allergy (Unknown, Uncoded 03/11/25 11:04) skin burn/ulceration adhesives Allergy (Unknown, Uncoded 03/11/25 11:04) skin burning, blisters HPI HPI Lipoma of neck: Details: She is here for excision of an epidermal cyst from the back. [facility] Medical History (Updated 03/11/25 @ 11:39 by Tavo Lockhart MD) Epidermal cyst Chronic migraine without aura Hypersomnia Snoring Sleep related bruxism Schamberg disease Skin lesion of neck Mucous cyst of toe Cyst, dermoid, face HTN (hypertension) Hyperplastic colon polyp (~2020) Obesity Smoker History of back pain Hx of seasonal allergies Hx of iron deficiency anemia Depression Anxiety High cholesterol Migraines Surgical History H/O tooth extraction Hx of bilateral oophorectomy History of colonoscopy (~2020) History of tubal ligation (~2006) History of gastric bypass (~2016) History of surgical removal of skin lesion (~2021) History of lymph node biopsy (~2017) History of blepharoplasty (~2014) History of colposcopy (~2008) History of tonsillectomy and adenoidectomy (~1985) History of surgical removal of ganglion cyst (~2011) History of foot surgery (~2014) History of bunionectomy of right great toe (~2011) History of nasal surgery (~2008) Hx of endoscopy Family History Father Hx of diabetes insipidus Mother Hx of diabetes insipidus Maternal Aunt Breast cancer Son No problems noted. Daughter No problems noted. Social History Household Members: None Housing: House Are you a primary health care aide to a significant other at home: No Do you presently have visiting nurse or other home services: No Alcohol intake: never Comment: Patient states is tolerable Patient Tobacco Use Status: Current everyday Tobacco user Tobacco use type: Cigarette Cigarettes Per Day: 6 Years Smoked: 35 e-Cigarette/Vaping Use: Never Used Second Hand Smoke Exposure: No service: No Current occupational status: employed Current occupation: [employer] Cognitive needs: No Hearing needs: No Vision needs: Yes Female Reproductive History Menstrual Age of Menarche: 10 Physical Exam Vital Signs: Last Vital Signs Pulse 77 03/11/25 11:05 BP 116/71 03/11/25 11:05 BMI result Body Mass Index 37.7 Office Procedures Excision Details: The area of the cyst on the upper back was prepped and draped. Lidocaine 1% was used for local anesthesia. I made an elliptical incision in the skin overlying this cystic induration with a blade 15. This carried down through the full-thickness of the skin and subcutaneous fat to excise this entire indurated area. This was about 1 cm in diameter. The incision was closed with full-thickness nylon 3-0 simple interrupted sutures. Dressings were applied. The procedure was completed. She tolerated procedure well. There were no immediate complications. 37242-szdte/arms/legs 0.6-1cm Procedure code (CPT) selection complete Assessment & Plan Assessment & Plan (1) Epidermal cyst: Code(s): L72.0 - Epidermal cyst Category: Medical Plan: Excision was done in the office. She tolerated procedure well. She was given wound care instructions. She will be seen for removal of sutures. Coding Level of Care Code Procedure Only Diagnoses Epidermal cyst L72.0 CPT Codes Trunk/Arms/Legs - CPT: 81378-xwotg/arms/legs 0.6-1cm ([id number])
[2025-03-11 11:05] VITALS: BP 116/71; PULSE 77; BMI 37.7
--- OUTSIDE RECORDS SUMMARY | 2025-03-11 12:44 | XMS_ITS | Patient Health Record ---
Author Organization [facility] [address] Address [address] [place] [address] Care Team Providers Care Web Solutions Architect Name Role Phone DORIAN BARNES Unavailable [phone] Allergies Allergen (clinical drug ingredient) Drug/Non Drug [...] Problem Obesity due to exces s calories (084236905) Other obesity due to excess calories (E66.09) Active confirmed Problem Essential hypertensi on (71576988) Essential (primary) hypertension (I10) Active confirmed Problem Pure hypercholesterolemia (140757400) Pure hypercholester olemia, unspecified (E78.00) Active confirmed Problem Body mass index 35.0 0 to 39.99 (061914850638270) Body mass index [BMI] 39.0-39.9, adult (Z68.39) Active confirmed Problem Migraine without aur a, not refractory (954623316) Migraine without aura and without status migrainosus, not intractable (G43.009) Active confirmed Problem Mixed anxiety and depressive disorder (964430957) Depression with anxiety (F41.8) Active confirmed Plan Of Treatment No Information Insurance Providers Payer Name Payer Address Payer Phone Subscriber Number Group Number Insured Name Patient Relationship to Insured Coverage Start Date Coverage End Date Blue Benefits Admin [address] [address] [place] [address] [id number] Coby Stevens Self - patient is the insured Medical (General) History Medical History History ICD Code hypertension hypercholesterolemia headache depression weight gain Surgical History Surgery Date(Month/Year) gastric bypass nose surgery foot surgery x 3
== END 2025-03-11 11:46 | disposition home or self-care (01) ==
LOC: HO.HGS 10:53
PROVIDERS: PCP Nurse Practitioner Family; Visit Provider Surgery
DX: L72.0 Epidermal cyst (principal)
CPT/HCPCS: 11401

== ENCOUNTER 2025-03-11 10:51 | Outpatient (REF) | payer OTHER, SELFPAY | END 2025-03-11 10:52 | disposition home or self-care (01) | LOC: HO.LNP 10:51 | PROVIDERS: PCP Nurse Practitioner Family; Visit Provider Surgery | DX: L72.0 Epidermal cyst (principal) | CPT/HCPCS: 11401; 88304 ==

== ENCOUNTER 2025-04-06 09:25 | Outpatient (REF) | payer OTHER, SELFPAY ==
[2025-04-06 09:44] LABS: MANUAL DIFF FLAG NO
--- OUTSIDE RECORDS SUMMARY | 2025-04-06 09:54 | XMS_ITS | Patient Health Record ---
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 Name Role Phone DORIAN BARNES Unavailable [phone] Allergies Allergen (clinical drug ingredient) Drug/Non Drug [...] Problem Obesity due to exces s calories (688202097) Other obesity due to excess calories (E66.09) Active confirmed Problem Essential hypertensi on (81376859) Essential (primary) hypertension (I10) Active confirmed Problem Pure hypercholesterolemia (020381870) Pure hypercholester olemia, unspecified (E78.00) Active confirmed Problem Body mass index 35.0 0 to 39.99 (531769405537899) Body mass index [BMI] 39.0-39.9, adult (Z68.39) Active confirmed Problem Migraine without aur a, not refractory (005407810) Migraine without aura and without status migrainosus, not intractable (G43.009) Active confirmed Problem Mixed anxiety and depressive disorder (390587811) Depression with anxiety (F41.8) Active confirmed Plan Of Treatment No Information Insurance Providers Payer Name Payer Address Payer Phone Subscriber Number Group Number Insured Name Patient Relationship to Insured Coverage Start Date Coverage End Date Blue Benefits Admin [address] [address] [place] [address] [id number] Coby Stevens Self - patient is the insured Medical (General) History Medical History History ICD Code hypertension hypercholesterolemia headache depression weight gain Surgical History Surgery Date(Month/Year) gastric bypass nose surgery foot surgery x 3
[2025-04-06 10:00] LABS: Hematocrit 42.5 % (37.0-47.0); Hemoglobin 14.2 g/dl (12.0-16.0); Imm Gran Abs Auto 0.03 X10*3/uL (0.00-0.03); Imm Gran Pct Auto 0.4 % (0.0-0.4); Lymphocytes Absolute Auto 2.0 X10*3/uL (1.2-4.9); Mean Corpuscular HGB Conc 33.4 g/dl (31.0-35.0); Mean Corpuscular Hemoglobin 29.5 pg (27.0-33.0); Mean Corpuscular Volume 88.2 fL (80.0-98.0); NRBC Abs Auto 0.000 X10*3/uL (0.0-0.012); NRBC Pct Auto 0.0 /100WBC (0.0-0.2); Platelet Count 332 X10*3/uL (160-400); Red Blood Count 4.82 X10*6/uL (4.20-5.50); White Blood Count 6.8 X10*3/uL (4.8-10.8)
[2025-04-06 10:40] LABS: Appearance Urine Clear; Glucose Urine UA Negative (Negative); PH 8.0 (5.0-9.0); Specific Gravity - Urine <= 1.005 (1.005-1.025)
[2025-04-06 10:41] LABS: Alanine Aminotransferase 17 U/L (0-31); Albumin Level 4.4 g/dL (3.5-5.0); Alkaline Phosphatase 74 U/L (39-117); Anion Gap 11 (12-20); Aspartate Amino Transferase 23 U/L (5-31); Blood Urea Nitrogen 12 mg/dL (9-16); Calcium 9.5 mg/dL (8.4-10.2); Carbon Dioxide 28 mmol/L (22-29); Chloride 108 mmol/L (96-108); Cholesterol 154 mg/dL (<200); Estimated Glomerular Filt Rate > 60; HDL Cholesterol 34 mg/dL (>40); Iron 122 mcg/dL (30-160); Percent Iron Saturation 44 % (15-50); Potassium 4.3 mmol/L (3.3-5.1); Sodium 143 mmol/L (135-145); Total Iron Binding Capacity 277 mcg/dL (228-428); Total Protein 7.0 g/dL (6.5-8.0); Triglycerides 131 mg/dL (<150); Unsaturated Iron Binding 155 ug/dL
[2025-04-06 10:52] LABS: Ferritin 33 ng/mL (10-250)
[2025-04-06 11:02] LABS: Folate 13.1 ng/mL (> or = 4.0); Vitamin B12 808 pg/mL (200-900)
== END 2025-04-06 09:26 ==
LOC: HO.LAB 09:25
PROVIDERS: PCP Nurse Practitioner Family; Visit Provider Nurse Practitioner Family
DX: I10 Essential (primary) hypertension (principal); E61.1 Iron deficiency; E53.8 Deficiency of other specified B group vitamins; E55.9 Vitamin D deficiency, unspecified
CPT/HCPCS: 36415; 80053; 80061; 81003; 82306; 82607; 82728; 82746; 83540; 84443; 85025

== ENCOUNTER 2025-04-07 15:44 | Outpatient (AMB) | payer OTHER, SELFPAY ==
[2025-04-07 15:48] VITALS: BP 112/70; PULSE 57; RESP 16; O2SAT 100; BMI 37.7
--- NOTE | 2025-04-07 15:48 | A.OFFPC_ITS ---
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 disolving stitches Allergy (Unknown, Uncoded 04/07/25 15:56) skin burn/ulceration adhesives Allergy (Unknown, Uncoded 04/07/25 15:56) skin burning, blisters Medication List - Last Reconciled 04/07/25 by DARON Davidson-CLEM amitriptyline 25 mg PO DAILY 90 days calcium carbonate-vitamin D3 600 mg-10 mcg (400 unit) (Calcium with Vitamin D) 1 tab PO BID 90 days cyanocobalamin (vitamin B-12) 1,000 mcg PO .weekly 90 days [EyePromise Restore ] fexofenadine-pseudoephedrine 60-120 mg ER (Vanessa-D 12 Hour) 1 tab PO Q12H PRN fremanezumab-vfrm (Ajovy) 675 mg (4.5 mL) subcut [id number] 90 days ibuprofen 800 mg PO Q8H PRN irbesartan 300 mg PO DAILY lansoprazole 15 mg PO DAILY loteprednol etabonate 0.5% 1 drp ophthalmic (eye) BID magnesium oxide 400 mg PO BEDTIME metoprolol succinate ER 100 mg PO DAILY 90 days multivitamin 1 tab PO DAILY naratriptan take 1/2 - 1 tab at onset of headache; if no relief may repeat 1 tab after at least 4 hrs; max = 2 tabs/24 hrs orally PRN; 30 days onabotulinumtoxinA (Botox) 200 units IM ONCE 12 weeks ondansetron HCl 8 mg PO Q12H PRN 10 days oxybutynin chloride ER 10 mg PO DAILY 90 days oxycodone-acetaminophen 5-325 mg (Percocet) 1 tab PO ONCE PRN 7 days riboflavin (vitamin B2) 400 mg PO QAM Saccharomyces boulardii (Daily Probiotic (S. boulardii)) 150 mg PO BID simvastatin 40 mg PO BEDTIME 90 days spironolactone 25 mg PO DAILY sumatriptan succinate 100 mg PO BID 15 days thiamine HCl (vitamin B1) (Vitamin B-1) 100 mg PO DAILY Tobacco use date assessed: 10/06/24 Dental Screening Dental Screen Date: 10/06/24 HPI 6 months f/up HPI Details Chief Complaint The patient's chief complaint is a cystic formation on the distal anterior lateral aspect of the right lower extremity. History of Present Illness The patient is a 54 year old female presenting for follow-up of a cystic formation on her right lower extremity. The lesion is located on the distal anterior lateral aspect of her right lower extremity, just superior to her ankle. She reports tenderness on contact and experiences numbness and tingling when it is touched. HTN: stable Social History Health Maintenance declines cpap and LDCTs Review of Systems - Integumentary: Reports a cystic-type f ormation on the right lower extremity which is tender to touch. - Neurological: Reports numbness and tin gling when the lesion is touched. - Constitutional: Denies warmth associat ed with the lesion. -denies any cp, sob, rivers, blurred vision, dizziness Physical Exam General: Cooperative, healthy appearing, comfortable, no acute distress and well developed Orientation: Patient oriented x3 Limitations: No limitations Head: Normal to inspection Ears: Hearing grossly normal bilaterally Nose: Normal external nose present Face and sinus: Normal facial exam Eyes: Appearance normal, both eyes and all related structures Neck: Normal visual inspection and Yes full ROM Respiratory: Normal respiratory effort and able to speak in complete sentences. Clear to auscultation bilaterally Cardiovascular: Regular rate and rhythm. Normal S1 and S2 GI: Normal to inspection. Soft to palpation and nontender Skin: No rashes or lesions noted Neuro: Patient oriented x3 Extremities: Cystic type formation, question of lipoma, noted on the distal anterior lateral aspect of the right lower extremity just superior to the ankle. Tenderness to touch, no warmth, surrounding erythema, reports numbness and tingling with touch. Fluctuance noted. Results Plan 1. Cyst Of Right Lower Extremity The patient presents with a tender, fluctuant, cystic formation on the distal anterior lateral aspect of the right lower extremity, which causes numbness and tingling on palpation. The differential diagnosis includes a cyst or a lipoma. An ultrasound of the area will be obtained for further characterization. Discussion Notes I discussed my findings of a cystic formation or a possible fatty tumor (lipoma) on the patient's right lower extremity. I advised that we will proceed with an ultrasound of the area to get a better assessment of the lesion. Patient Instructions - An ultrasound of your right lower leg has been ordered to evaluate the lump near your ankle. [facility] Medical History (Updated 04/07/25 @ 16:21 by Cheo Lowry, [facility]) Epidermal cyst Chronic migraine without aura Hypersomnia Snoring Sleep related bruxism Schamberg disease Skin lesion of neck Mucous cyst of toe Cyst, dermoid, face HTN (hypertension) Hyperplastic colon polyp (~2020) Obesity Smoker History of back pain Hx of seasonal allergies Hx of iron deficiency anemia Depression Anxiety High cholesterol Migraines Surgical History H/O tooth extraction Hx of bilateral oophorectomy History of colonoscopy (~2020) History of tubal ligation (~2006) History of gastric bypass (~2016) History of surgical removal of skin lesion (~2021) History of lymph node biopsy (~2017) History of blepharoplasty (~2014) History of colposcopy (~2008) History of tonsillectomy and adenoidectomy (~1985) History of surgical removal of ganglion cyst (~2011) History of foot surgery (~2014) History of bunionectomy of right great toe (~2011) History of nasal surgery (~2008) Hx of endoscopy Family History Father Hx of diabetes insipidus Mother Hx of diabetes insipidus Maternal Aunt Breast cancer Son No problems noted. Daughter No problems noted. Social History Household Members: None Housing: House Are you a primary direct care worker to a significant other at home: No Do you presently have visiting nurse or other home services: No Alcohol intake: never Comment: Patient states is tolerable Patient Tobacco Use Status: Current everyday Tobacco user Tobacco use type: Cigarette Cigarettes Per Day: 6 Years Smoked: 35 e-Cigarette/Vaping Use: Never Used Second Hand Smoke Exposure: No service: No Current occupational status: employed Current occupation: [employer]- Cognitive needs: No Hearing needs: No Vision needs: Yes Female Reproductive History Menstrual Age of Menarche: 10 Questionnaire PHQ-9 Over the last 2 weeks, how often have you been bothered by any of the following problems? 1. Little interest or pleasure in doing things: not at all 2. Feeling down, depressed, or hopeless: not at all 3. Trouble falling or staying asleep, or sleeping too much: not at all 4. Feeling tired or having little energy: not at all 5. Poor appetite or overeating: not at all 6. Feeling bad about yourself - or that you are a failure or have let yourself or your family down: not at all 7. Trouble concentrating on things, such as reading the newspaper or watching television: not at all 8. Moving or speaking so slowly that other people could have noticed. Or the opposite - being so fidgety or restless that you have been moving around a lot more than usual: not at all 9. Thoughts that you would be better off or of hurting yourself in some way: not at all Total score: 0 Depression Screening Interpretation: Negative Depression Screening Done: Yes 87151 - PHQ-9 Billing: Patient declined-do not bill Source: Developed by Drs. Golden Dunn, Shabnam Cortez, Sam Hernandes and colleagues, with an educational kieran from [employer]. Thrive Questionnaire Date Thrive assessed: 05/12/24 I am a: Patient What is your living situation today?: I have a steady place to live Within the past 12 months, did the food you bought not last and you didn't have the money to get more?: Never true Within the past 12 months, did you worry whether your food would run out before you got money to buy more?: Never true Do you have trouble paying for medicines?: No Do you have trouble getting transportation to medical appointments?: No Do you have trouble paying your heating and electricity bill?: No Do you have trouble taking care of your child, family member or friend?: No Do you have trouble with day-to-day activities such as bathing, preparing meals, shopping, managing finances, etc.?: No Are you currently unemployed and looking for a job?: No Are you interested in more education?: No Currently or been in a relationship where the following occur: No concerns reported THRIVE Score: 0 BARB-7 AMB Questionnaire BARB-7 Date BARB - 7 assessed: 05/14/24 Feeling nervous, anxious, or on edge: 0 = Not at all Not being able to stop or control worryin = Not at all Worrying too much about different things: 0 = Not at all Trouble relaxin = Not at all Being so restless that it is hard to sit still: 0 = Not at all Becoming easily annoyed or irritable: 0 = Not at all Feeling afraid as if something awful might happen: 0 = Not at all Total BARB-7 score (0-4 normal; 5-9 mild; 10-14 moderate; 15-21 severe): 0 Source: Developed by Drs. Golden Dunn, Shabnma Cortez, Sam Hernandes and colleagues, with an educational kieran from [employer]. BARB-7 Assessment Billing BARB-7 Assessment Tool: BARB-7 Assessment 55458 Physical exam (Primary Care) Vital Signs: Last Vital Signs Pulse 57 04/07/25 15:48 Resp 16 04/07/25 15:48 BP 112/70 04/07/25 15:48 Pulse Ox 100 04/07/25 15:48 BMI result Body Mass Index 37.7 Tobacco/Smoking Status: Tobacco use Status Tobacco use date assessed 10/06/24 04/07/25 15:49 Patient Tobacco Use Status Current everyday Tobacco 04/07/25 15:49 Tobacco use type Cigarette 04/07/25 15:49 e-Cigarette/Vaping Use Never Used 04/07/25 15:49 Depression Screening Interpretation: Negative Thrive Assessment: Date of Thrive Assessment Date Thrive assessed 05/12/24 04/07/25 15:49 Currently or been in a relationship where the following occur: No concerns reported Coding Level of Care Code Est Pt Level 3 (62120) Diagnoses Skin cyst L72.9 HTN (hypertension) I10 Additional Codes BARB-7 Assessment Billing - BARB-7 Assessment Tool: BARB-7 Assessment 97963 ([id number]) Assessment & Plan Assessment & Plan (1) Skin cyst: Code(s): L72.9 - Follicular cyst of the skin and subcutaneous tissue, unspecified Category: Medical (2) HTN (hypertension): Code(s): I10 - Essential (primary) hypertension Category: Medical Plan .
--- OUTSIDE RECORDS SUMMARY | 2025-04-07 18:56 | XMS_ITS | Patient Health Record ---
Author Organization [facility] [address] Address [address] [place] [address] Care Team Providers Care Aba Tutor Name Role Phone DORIAN BARNES Unavailable [phone] Allergies Allergen (clinical drug ingredient) Drug/Non Drug [...] Problem Obesity due to exces s calories (794352365) Other obesity due to excess calories (E66.09) Active confirmed Problem Essential hypertensi on (06682239) Essential (primary) hypertension (I10) Active confirmed Problem Pure hypercholesterolemia (597340225) Pure hypercholester olemia, unspecified (E78.00) Active confirmed Problem Body mass index 35.0 0 to 39.99 (694035605477590) Body mass index [BMI] 39.0-39.9, adult (Z68.39) Active confirmed Problem Migraine without aur a, not refractory (289648840) Migraine without aura and without status migrainosus, not intractable (G43.009) Active confirmed Problem Mixed anxiety and depressive disorder (817824362) Depression with anxiety (F41.8) Active confirmed Plan Of Treatment No Information Insurance Providers Payer Name Payer Address Payer Phone Subscriber Number Group Number Insured Name Patient Relationship to Insured Coverage Start Date Coverage End Date [employer] [place] [address] [address] [place] [address] [id number] Coby Stevens Self - patient is the insured Medical (General) History Medical History History ICD Code hypertension hypercholesterolemia headache depression weight gain Surgical History Surgery Date(Month/Year) gastric bypass nose surgery foot surgery x 3
== END 2025-04-07 16:19 | disposition home or self-care (01) ==
LOC: HO.HMCC 15:45
PROVIDERS: PCP Nurse Practitioner Family; Visit Provider Nurse Practitioner Family
DX: L72.9 Follicular cyst of the skin and subcutaneous tissue, unspecified (principal); I10 Essential (primary) hypertension

== ENCOUNTER → 2025-04-07 15:44 | Outpatient (BNVA) | payer OTHER, SELFPAY | PROVIDERS: PCP Nurse Practitioner Family; Visit Provider Nurse Practitioner Family | DX: L72.9 Follicular cyst of the skin and subcutaneous tissue, unspecified (principal); I10 Essential (primary) hypertension; Z13.39 Encounter for screening examination for other mental health and behavioral disorders | CPT/HCPCS: 96127 ==